=== PATIENT | female | born 1970 | race Caucasian/White ===

== ENCOUNTER 2022-01-30 12:51 | Outpatient (REF) | payer MEDICAID, SELFPAY ==
--- NOTE | 2022-01-30 12:00 | PAPFT_PTH ---
PATIENT: Kimberley Camarena I LOC: NCN #:[id number] AGE/SX: 51/F ROOM: RE01/30/[address]: Leroy Dangelo : 1970 BED: DIS: 01/30/2022 SPEC #: [id number] RECD: 01/30/22 18:12 STATUS: AVELINOSarabjit REAnusha #: [id number] KIARA: 01/30/22 12:[address]: Leroy Dangelo DEPT: [facility] Cytology RECD BY: Layne Jenkins ENTERED: 01/30/22 18:13 SP TYPE: PAPFT OTHR DR: Kristin Wagner Tissues: 1 - CX/ENDOCX FOR PAP SMEARS Procedures: PAP THIN PREP/[facility] Screening Comments: [id number]
[2022-01-30 17:27] LABS: HCT 45.5 % (36.0-46.0); MCH 31.6 pg (27.0-33.0); MCV 96 fL (80-95); MPV 9.6 fL (8.0-11.0); Platelet Count 286 10^3/uL (130-400); RBC 4.75 10^6/uL (3.93-5.22); RDW 12.7 % (11.7-14.6); RDW-SD 45.4 fL; WBC 8.19 10^3/uL (4.4-10.8)
[2022-01-30 18:24] LABS: ALT 20 U/L (14-59); AST 13 U/L (15-37); Albumin 3.7 g/dL (3.4-5.0); Alkaline Phosphatase 83 U/L (46-116); Anion Gap 7.6 mmol/L (3-11); BUN 19 mg/dL (7-18); Bilirubin, Total 0.6 mg/dL (0.2-1.0); CO2 27.4 mmol/L (21.0-32.0); CREATININE 0.8 mg/dL (0.55-1.02); Calcium 8.1 mg/dL (8.5-10.1); Calculated LDL 118 mg/dL (<100); Chloride 107 mmol/L (98-107); Cholesterol 216 mg/dL (<200); Glucose 109 mg/dL (74-106); HDL Cholesterol 74 mg/dL (40-60); Potassium 4.1 mmol/L (3.5-5.1); Sodium 142 mmol/L (136-145); Total Protein 6.5 g/dL (6.4-8.2); Triglyceride 124 mg/dL (<150)
[2022-01-31 09:51] LABS: Hepatitis C Ab w Rflx HCV PCR Negative (Negative)
[2022-01-31 10:06] LABS: HIV-1/2 Ag & Ab Screen Negative (Negative)
== END 2022-01-30 12:52 | disposition home or self-care (01) ==
LOC: NCHCN 12:51
PROVIDERS: PCP Nurse Practitioner Family; Visit Provider Nurse Practitioner Family
DX: Z00.00 Encounter for general adult medical examination without abnormal findings (principal); Z11.4 Encounter for screening for human immunodeficiency virus [HIV]; Z11.59 Encounter for screening for other viral diseases; Z13.228 Encounter for screening for other metabolic disorders; Z13.220 Encounter for screening for lipoid disorders; Z12.4 Encounter for screening for malignant neoplasm of cervix
CPT/HCPCS: 80053; 80061; 85027; 86803; 87389; 88142

== ENCOUNTER → 2022-02-16 01:51 | Outpatient (CLI) | payer MEDICAID, SELFPAY ==
--- NOTE | 2022-02-16 | DI.US_ITS ---
Exam(s) US SOFT TISS ABD WALL/LOW BACK EXAM: US SOFT TISS ABD WALL/LOW BACK CLINICAL HISTORY: MASS OF CHEST WALL R22.2, BOTTOM RT RIBS GROWING IN SIZE. TECHNIQUE: Ultrasound was performed using standard protocol. COMPARISON: No exams were available for comparison FINDINGS: Sonographic assessment utilizing grayscale and color Doppler imaging was performed and targeted to th e area of clinical concern. Area of concern is right upper anterior abdominal wall. In the area of clinical concern there is a well-defined 6.3 x 1.2 x 5.7 centimeter finding which has the ultrasound appearance of a probable lipoma. There is no fluid collection in this region. IMPRESSION: Appearance is that of a probable lipoma with measurements as above. Recommend repeat study for remea suring in 6 months, earlier if clinically indicated. DATA REPOSITORY:
== END ==
PROVIDERS: PCP Nurse Practitioner Family; Visit Provider Nurse Practitioner Family
DX: R22.2 Localized swelling, mass and lump, trunk (principal); D17.39 Benign lipomatous neoplasm of skin and subcutaneous tissue of other sites
CPT/HCPCS: 76705

== ENCOUNTER 2022-02-16 02:23 | Outpatient (CLI) | payer MEDICAID, SELFPAY ==
[2022-02-16 17:41] LABS: Ionized Calcium 1.08 mmol/L (1.14-1.35)
== END 2022-02-16 02:24 | disposition home or self-care (01) ==
LOC: LBO 02:23
PROVIDERS: PCP Nurse Practitioner Family; Visit Provider Nurse Practitioner Family
DX: E83.51 Hypocalcemia (principal)
CPT/HCPCS: 36415; 82330

== ENCOUNTER → 2022-03-15 02:22 | Outpatient (CLI) | payer MEDICAID, SELFPAY ==
--- NOTE | 2022-03-15 09:15 | DI.MAMMO_ITS ---
Exam(s) MAMMO SCREENING EXAM: MAMMO SCREENING CLINICAL HISTORY: SCREENING, [facility], Z00.00; MASS OF CHEST WALL, R22.2 TECHNIQUE: Mammograms were interpreted according to the usual protocol including computer analysis w [employer] CAD system, tomosynthesis and C-view imaging. COMPARISON: 2009 FINDINGS: The breasts are composed of heterogeneously dense fibroglandular densities, Breast Density category C . Right breast: No suspicious masses or suspicious microcalcifications are seen. No skin thickening or abnormal axillary lymph nodes are seen. There has been no significant change from prior exam. Left breast: There are innumerable calcifications seen in the inferior and medial portions of the lef t breast extending from the anterior tissue through the posterior tissue. They have a somewhat pleom orphic appearance. An additional circumscribed heart, partially obscured nodule is seen in the media l breast. These findings were not seen on the previous exam. Spot magnification views and ultrasoun d are recommended for further evaluation. IMPRESSION: Right breast: BI-RADS Category 1, Negative mammogram. Yearly screening mammography is recommended. Left breast: BI-RADS Cat 0 - Assessment Incomplete: Need additional imaging evaluation Breast Density Category C, heterogeneously Dense. The mammogram demonstrates the patient's breast tissue is dense. Dense breast tissue is very common a nd is not abnormal but dense breast tissue can make it harder to find cancer on a mammogram. Also, de nse breast tissue may increase breast cancer risk. This information about the result of the mammogram report was provided to the patient to raise their awareness. Use this report when you speak with the patient about their risks for breast cancer, which includes their family history. At that time, you may recommend additional screening tests (Ultrasound or MRI) as they might be useful based on their r isk. A negative radiographic report should not delay biopsy if a dominant or clinically suspicious mass is present. Up to ten percent of cancers are not identified on mammography. A negative report may reinforce clinical impression. Adenosis and dense breasts may obscure an underlying neoplasm. False positive reports average 6 to 10%.
== END ==
PROVIDERS: PCP Nurse Practitioner Family; Visit Provider Nurse Practitioner Family
DX: Z12.31 Encounter for screening mammogram for malignant neoplasm of breast (principal); R92.8 Other abnormal and inconclusive findings on diagnostic imaging of breast
CPT/HCPCS: 77063; 77067

== ENCOUNTER → 2022-03-17 00:21 | Outpatient (CLI) | payer MEDICAID, SELFPAY ==
--- OUTSIDE RECORDS SUMMARY | 2022-03-17 00:29 | XMS_ITS | Encounter Summary ---
:1970 Author Organization [facility] Address [address] [place] [address] Care Team Providers Name Role Phone Unavailable Primary Care Provider Unavailable Encounter Details Date Type Department Care Team Description 01/06/2008 Results Only [facility] Moncada, JIAN conversion [address] [facility] [address] [place] [phone] (Wo rk) Social History Tobacco Use Types Packs/Day Years Used Date Never Assessed Sex Assigned at Date Recorded Not on file documented as of this encounter Plan of Treatment Not on filedocumented as of this encounter Procedures Procedure Name Priority Date/Time Associated Diagnosis Comme nts CYTOPATHOLOGY Routine 01/06/2008 0:00 EDT Results for this procedure are i n the results section . documented in this encounter Results CYTOPATHOLOGY (01/06/2008 0:00 EDT) Pathology Report: CYTOPATHOLOGY REPORT [facility] Reports generated via electronic interface contain josh ginal data; however they are lacking the format of the original re port. Caution should be taken when reading/interpreting unfo rmatted reports. Name: ? KIMBERLEY CAMARENA ? Accession #: ? [id number] : ? 1970 (Age: 37) ??F ?Collect Date: ? 12/10 Location: ? [facility] ? Receive Date : ? 01/06/2008 Provider: ?PRESTON GRIFFIN [employer] EXECUTIVE Copy to: ? Specimen/Source: ? ThinPrep Pap Test, Cervix/Endocervix, processed on [employer] ThinPrep Imaging System, with manual evaluation Last Menstrual Period: ? 12/13/07 Treatment History: ? LEEP: 1994 Other: ? HPVA - HPV testing requested if ASC-US on the current ThinPrep Pap test. ? SPECIMEN ADEQUACY ? Satisfactory for Evaluation - transformation zone component present GENERAL CATEGORIZATION ? Negative for Intraepithelial Lesion or Malignan cy ? Document reviewed and electronically signed by: ? DELICIA Nassar(ASCP) ? Report Date: ??01/13/2008 09:17 End of Report Specimen Performing Organization Address City/State/ZIP Code Phon e Number [facility] [address] [place] [address] SERVICES [facility] [address] [place] [address] documented in this encounter Visit Diagnoses Not on filedocumented in this encounter
--- OUTSIDE RECORDS SUMMARY | 2022-03-17 00:29 | XMS_ITS | Encounter Summary ---
:1970 Author Organization [facility] [place] [address] Care Team Providers Name Role Phone Kristin Wagner APRN Primary Care Provider [phone] Encounter Details Date Type Department Care Team Description 01/19/2012 Hospital Encounter Same Day Program at Jose Bustamante MD Formerly [facility] [place] [address] [place] [address] [phone] Social History Tobacco Use Types Packs/Day Years Used Date Current Every Day Smoker Cigarettes 1 Smokeless Tobacco: Never Used Alcohol Use Standard Drinks/Week Comments Yes 0 (1 standard drink = 0.6 oz pure alcoho l) social Alcohol Habits Answer Date Recorded How often do you have a drink containing alcohol? Not asked How many drinks containing alcohol do you have on a typical Not asked day when you are drinking? How often do you have six or more drinks on one occasion? No t asked Comment: social 01/04/2012 Sex Assigned at Date Recorded Not on file documented as of this encounter Last Filed Vital Signs Vital Sign Reading Time Taken Comments Blood Pressure 133/77 01/19/2012 6:34 PM EDT Pulse 85 01/19/2012 6:34 PM EDT Temperature 36.9 ??C (98.4 ??F) 01/19/2012 6:34 PM EDT Respiratory Rate 12 01/19/2012 4:45 PM EDT Oxygen Saturation 95% 01/19/2012 6:34 PM EDT Inhaled Oxygen Concentration - - Weight 81.6 kg (180 lb) 01/19/2012 10:21 AM EDT Height 172.7 cm (5' 8) 01/19/2012 10:21 AM EDT Body Mass Index 27.37 01/19/2012 10:21 AM EDT documented in this encounter Discharge Instructions Discharge InstructionsHalley Tatum RN - 01/19/2012 6:46 PM EDT POST ANESTHESIA INSTRUCTIONS Go home, rest, use caution on stairs. Change positions slowly. Do not smoke if you are alone. Diet light to regular as tolerated today. If nausea occurs start with clear liquids and progress slowly. No driving, operating machinery, alcoholic beverages and no important decisions for 24 hours. Monitor IV site for signs and symptoms of infection: increasing redness, swelling, foul drainage, ifoccurs contact M.D. Patients who have had endotrachial tubes (this tube, used by anesthesia department, is passed down your throat after you are asleep, to ensure safe air passage during your operation). A sore throat is normal due to the tube. Cold liquids or soothing lozenges will help ease the discomfort. The generalized muscle aches are due to the medication given to you just before the tube is inserted. As the medication wears off, you may develop muscle soreness, which usually goes away in 12-24 hours. Patient InstructionsCruzito Orozco MD - 01/19/2012 5:08 PM EDT Keep dressing on 48 hours Keep incision dry for 5 days Vicodin for pain documented in this encounter Medications at Time of Discharge Medication Sig Dispensed Refills Start Date End Date misoprostol (CYTOTEC) 200 Take 200 mcg by 0 mcg tablet mouth 2 times daily. diclofenac (VOLTAREN) 75 Take 75 mg by mouth 0 mg EC tablet 2 times daily. gabapentin (NEURONTIN) 800 Take 800 mg by 0 mg tablet mouth 3 times daily. cyclobenzaprine (FLEXERIL) Take 10 mg by mouth 0 10 mg tablet daily. hydroCODone-acetaminophen Take 1 tablet by 0 03/20/2012 (NORCO) 10-325 mg per mouth every 6 hours tablet as needed. Tapering documented as of this encounter Progress Notes Jose Bustamante MD - 01/19/2012 11:57 AM EDT Patient is describing pain across dorsal, not just lateral surface of the left foot. Give the presence of a small disc bulge at L4-5, in addition to the larger one at L5-S1, I have recommended exploration of left side L4-5 in addition to L5-S1 (with possible 2 level discectomy). Patient understands rationale and agrees to the modified plan. Consent reflects modification to the plan. Eugenio Bustamante MD documented in this encounter H&P Notes Cruzito Orozco MD - 01/19/2012 11:52 AM EDT See office note No changes Heart and Lungs WNL documented in this encounter Nursing Notes Deandra Trevino RN - 01/19/2012 2:52 PM EDT Kimberley reports pain down her left leg requiring increased pain med use causing constipation. She has equally strong motor function in lower extremities and denies decreased sensation of left leg/foot attime of preop. She does report left ankle seems to go out once in awhile documented in this encounter Miscellaneous Notes Miscellaneous - Provider, Scanning - 01/22/2012 7:08 AM EDT Miscellaneous - Provider, Scanning - 01/21/2012 11:21 PM EDT OR Attestation - Jose Bustamante MD - 01/19/2012 4:44 PM EDT Attestation: Case Date: 01/19/2012 I was present and I participated during the entire procedure (does not need to include opening and closing). Jose BUSTAMANTE MD 01/19/2012 Op Note - Jose Bustamante MD - 01/19/2012 4:40 PM EDT [facility] Operative Note Patient Name: Kimberley Camarena : [id number] MR#: [id number] Case Date: 01/19/2012 Surgeon: Surgeon(s) and Role: * Jose BUSTAMANTE MD - Primary * CRUZITO OROZCO MD - Resident-Double Bottom Driver Preoperative diagnosis: LUMBAR RADICULOPATHY Postoperative diagnosis: LUMBAR RADICULOPATHY Procedure(s): LAMINOTOMY, DECOMPRESSION, FORAMINOTOMY, LUMBAR ADD'L INTERSPACES CX OR LUMBAR Procedure: Left L4-L5 diskectomy and left L5-S1 diskectomy. Indications: Ms. Camarena presents with a left lower lumbar radiculopathy with features suggesting both L5 and S1 involvement. She was found to have disk herniations at L4-L5 and L5-S1 and is brought to the Operating Room for exploration and diskectomy at these levels. Operative Findings: A relatively large free fragment was found at L5-S1 compressing the left S1 root. At L4-L5, there was a disk protrusion compressing the adjacent L5 root. Diskectomy was performed at both levels without incident. Description of the Operative Procedure: The patient was brought to the Operating Room and general endotracheal anesthesia induced. The patient was placed prone on a Bryant frame. The lower back was prepped and draped in the usual sterile fashion. Localization was performed with fluoroscopy. Midline incision was made over the L5 level approximately 4 cm in length. Subcutaneous tissues were divided and the dorsal fascia incised with monopolar electrocautery. Subperiosteal dissection was used to expose the lamina of L4 and L5. We started with the L5-S1 level. The inferior portion of the left L5 lina-lamina was carefully drilled with a Midas AM8 bur. Kerrison rongeurs were used to complete the laminotomy. The ligamentum flavum was elevated and undercut with Kerrison rongeurs. The shoulder of the exiting root was visualized and retracted medially. An operating microscope was used from this point forward in conjunction with microscopic technique. A cruciate incision was made in the L5-S1 disk. Inferior to the disk itself, a relatively large fragment was encountered; and this was removed in three separate pieces. The disk space itself was then entered and diskectomy performed with down-pushing curettes and pituitary rongeurs. The disk space itself was very collapsed, so not much disk material was actually removed from the disk space itself. At the conclusion of the diskectomy, the nerve root was palpated both ventrally and dorsally and found to be free of compression. We then moved our retractor slightly rostrally and performed an identical laminotomy and diskectomy at L4-L5. At L4-L5, there was no free fragment, only a disk protrusion. Again, once the diskectomy was completed, the L5 nerve root was found to be free of compression. The wound was then copiously irrigated and less than 1 mL of Depo-Medrol divided between the L4 and L5 laminotomies. The dorsal fascia was reapproximated with interrupted Vicryl suture. The subcutaneous tissues were reapproximated with interrupted Vicryl suture. The skin was closed with a running 4-0 subcuticular Monocryl. Sterile dressings were applied and the patient brought to the Recovery Area in stable condition. Brief Op Note - Cruzito Orozco MD - 01/19/2012 4:16 PM EDT Brief Operative Note Patient Name: Kimberley Camarena : [id number] MR#: [id number] Case Date: 01/19/2012 Surgeon: Surgeon(s) and Role: * Jose BUSTAMANTE MD - Primary * CRUZITO OROZCO MD - Resident-Double Bottom Driver Preoperative diagnosis: LUMBAR RADICULOPATHY Postoperative diagnosis: LUMBAR RADICULOPATHY Procedure(s): LAMINOTOMY, DECOMPRESSION, FORAMINOTOMY, LUMBAR ADD'L INTERSPACES CX OR LUMBAR Anesthesia: General Findings: L4-5 and L5-S1 disc herniation Complications: None Fluids: 1100 cc Estimated Blood Loss: 40cc Drains: None Disposition: awakened from anesthesia, extubated and taken to the recovery room in a stable condition, having suffered no apparent untoward event. Condition: doing well without problems (Please see the Surgical Encounter Summary for any Implant and Specimen details pertinent to this patient.) Miscellaneous - Provider, Scanning - 01/19/2012 1:15 PM EDT documented in this encounter Plan of Treatment Pending Results Name Type Priority Associated Diagnoses Date/Ti me XR Fluoro OR c-arm Imaging Routine 2 4:58 PM EDT storage only Scheduled Orders Name Type Priority Associated Diagnoses Order S chedule XR Fluoro OR c-arm Imaging Routine Once PRN (for Radiant storage only use) for 1 Occu rrences starting 2011 until 01/19/2012 documented as of this encounter Procedures Procedure Name Priority Date/Time Associated Diagnosis Comme nts SURGICAL PATHOLOGY Routine 01/19/2012 3:38 PM Res ults for this REPORT EDT procedure are i n the results section. SPECIMEN TO Routine 01/19/2012 3:29 PM Results f or this PATHOLOGY EDT procedure are i n the results section. SPECIMEN TO Routine 01/19/2012 2:10 PM Results f or this PATHOLOGY EDT procedure are i n the results section. ADD'L INTERSPACES CX 01/19/2012 12:23 LUMBAR RADICULOP ATHY OR LUMBAR (VU PM EDT 3.15) LAMINOTOMY, 01/19/2012 12:23 LUMBAR RADICULOPATHY DECOMPRESSION, PM EDT FORAMINOTOMY, LUMBAR (WRVU 13.18) DIFFERENTIAL, Routine 01/19/2012 10:09 Results fo r this AUTOMATED AM EDT procedure are i n the results section. ABO/RH TYPING STAT 01/19/2012 10:09 Results fo r this AM EDT procedure are i n the results section. APTT Routine 01/19/2012 10:09 Results for this AM EDT procedure are i n the results section. PROTHROMBIN TIME Routine 01/19/2012 10:09 Results for this AM EDT procedure are i n the results section. CBC (WITH DIFF) Routine 01/19/2012 10:09 Results for this AM EDT procedure are i n the results section. ANTIBODY SCREEN STAT 01/19/2012 10:09 Results for this AM EDT procedure are i n the results section. BASIC METABOLIC Routine 01/19/2012 10:09 Results for this PANEL (NON-FASTING) AM EDT procedur e are in the results section. TYPE AND SCREEN STAT 01/19/2012 10:01 ([facility] [place]/[facility]) AM EDT documented in this encounter Results SURGICAL PATHOLOGY REPORT (01/19/2012 3:38 PM EDT) Component Value Ref Test Analysis Performed At [facility] Range Method Time Signature Surgical CERNER Pathology ? [facility] Report ? Provider: ?? Jose BUSTAMANTE ? Pt. Name: ?? DIAZ Doran, KIMBERLEY Greer ? Acc #: ?[id number] ?Pt. MRN: ?[id number] ? Col Date: ?? 2 ? /Sex: ?1970,(41 years),Female ? Rec Date: ?? 01/19/2012 ? LOC: ?[facility] ? SURGICAL PATHOLOGY ? ---Pathologic Diagnosis--- ? A - Intervertebral disc, L5-S1. ?Gross surgical pathology examination. ? B - Intervertebral disc, L4-5. ?Gross surgical pathology examination. ? CR-0 ? 01/22/12 ? AJE ? 01/22/12 Verified by: ? Byron DO, Radha You. ? Pathologist ? (Electronic Si gnature) ? The attending pathologist whose signature appears o n this report has ? reviewed all diagnostic slides and has edited the dileep ss and/or ? microscopic portion of the report in rendering the fi nal pathologic ? diagnosis. ? ---Microscopic Description--- ? Slides reviewed, microscopic description not recorded . ? ---Gross Description--- ? A - Labeled/Fixative: L5-S1 disc, fresh. ? Quantity/Size: ?Multiple, 3.0 x 2.0 x 2.0 c m. ? Tissue Description: ?? Dense, jung-white, friable fra gments. ? Sections/Processing: ??No sections are submitted. ? B - Labeled/Fixative: L4-5 disc, fresh. ? Quantity/Size: ?Multiple, 2.0 x 2.0 x 2.0 c m. ? Tissue Description: ?? Dense, jung-white, friable fra gments. ? Sections/Processing: ??No sections are submitted. ??a je/SNS ? ---Clinical Information--- ? Specimen Submitted: ? A - L5-S1 disc ? B - L4-5 disc ? Clinical History/Diagnosis: ? Lumbar radiculopathy Specimen (Source) Anatomical Collection Method Collection Time Re ceived Time Location / / Volume Laterality 01/19/2012 3:38 PM EDT S Eugenio Bustamante MD PATHOLOGY/CYTOLOGY ORDERABLE S Performing Organization Address [facility]/ZIP Code Phon e Number [address] CERNER MILLENNIUM Specimen to Pathology (surgical or derm) (01/19/2012 3:29 PM EDT) Specimen Anatomical Collection Method Collection Time Receive d Time (Source) Location / / Volume Laterality AP Specimen 01/19/2012 3:29 PM 2 3:29 EDT PM EDT Narrative CERNER MILLENNIUM - 01/19/2012 3:29 PM E DT Specimen requisition ordered. ??Separate Pathology report to follow S Eugenio Bustamante MD PATHOLOGY/CYTOLOGY ORDERABLE S Performing Organization Address [facility] [place] [address] CERNER MILLENNIUM Specimen to Pathology (surgical or derm) (01/19/2012 2:10 PM EDT) Specimen Anatomical Collection Method Collection Time Receive d Time (Source) Location / / Volume Laterality AP Specimen 01/19/2012 2:10 PM 2 2:10 EDT PM EDT Narrative CERNER MILLENNIUM - 01/19/2012 2:10 PM E DT Specimen requisition ordered. ??Separate Pathology report to follow S Eugenio Bustamanet MD PATHOLOGY/CYTOLOGY ORDERABLE S Performing Organization Address City/State/ZIP [place] [address] CERNER MILLENNIUM DIFFERENTIAL, AUTOMATED (01/19/2012 10:09 AM EDT) P athologist Signature Neutrophils % 56.6 34.0 - CERNER 71.0 % MILLENNIUM Neutr Abs (ANC) 5.33 1.50 - CERNER 6.30 MILLENNIUM x10(3)/mcL Lymphocytes % 31.9 19.0 - CERNER 53.0 % MILLENNIUM Lymphocytes Abs 3.0 1.0 - 3.6 CERNER x10(3)/mcL MILLENNIUM Monocytes % 7.0 4.0 - 13.0 CERNER % MILLENNIUM Monocyte Abs 0.7 0.2 - 1.0 CERNER x10(3)/mcL MILLENNIUM Eosinophils % 4.1 0.0 - 7.0 CERNER % MILLENNIUM Eosinophils Abs 0.4 0.0 - 0.5 CERNER x10(3)/mcL MILLENNIUM Basophils % 0.3 0.0 - 2.0 CERNER % MILLENNIUM Basophils Abs 0.0 0.0 - 0.2 CERNER x10(3)/mcL MILLENNIUM Immature Gran % 0.10 0.00 - CERNER 0.66 % MILLENNIUM Comment: Immature granulocytes(IG's)percentage an d absolute count will include metamyelocytes, myelocytes, and promyelo cytes. Blood smears from CBCs yielding IG's will be scanned manually for concor dance. If this scan disagrees with the automated IG or if promyelocytes are not ed, a manual differential will be performed. Tammie Gran Abs 0.01 0.00 - 0.05 x10(3)/mcL CER NER MILLENNIUM Specimen Anatomical Collection Method Collection Time Receive d Time (Source) Location / / Volume Laterality Blood specimen 01/19/2012 10:09 2 (specimen) AM EDT 10:13 AM EDT S Eugenio Bustamante MD HEMATOLOGY ORDERABLES Performing Organization Address City/[facility]/ZIP [place] [address] [facility] ANTIBODY SCREEN (01/19/2012 10:09 AM EDT) Analysis Performed At Patho logist Time Signature Ab Screen [facility] Ex[facility] at [id number] [facility] [id number] on: [facility] Specimen Anatomical Collection Method Collection Time Receive d Time (Source) Location / / Volume Laterality Blood specimen 01/19/2012 10:09 2 (specimen) AM EDT 10:13 AM EDT Resulting Agency Comment Spec In Lab S Eugenio Bustamante MD BLOOD BANK ORDERABLES Performing Organization Address City/[facility]/ZIP [place] [address] [facility] ABO/RH TYPING (01/19/2012 10:09 AM EDT) P athologist Signature ABORh Type A Pos [facility] Specimen Anatomical Collection Method Collection Time Receive d Time (Source) Location / / Volume Laterality Blood specimen 01/19/2012 10:09 2 (specimen) AM EDT 10:13 AM EDT Resulting Agency Comment Spec In Lab S Eugenio Bustamante MD BLOOD BANK ORDERABLES Performing Organization Address City/[facility]/ZIP [place] [address] [facility] APTT (01/19/2012 10:09 AM EDT) P athologist Signature PTT 30 25 - 35 sec [facility] Comment: Recommended therapeutic PTT range for fu ll dose unfractionated heparin is 80-114 seconds. Specimen Anatomical Collection Method Collection Time Receive d Time (Source) Location / / Volume Laterality Blood specimen 01/19/2012 10:09 2 (specimen) AM EDT 10:13 AM EDT Resulting Agency Comment Spec In Lab S Eugenio Bustamante MD HEMATOLOGY ORDERABLES Performing Organization Address City/[facility]/ZIP [place] [address] CERNER MILLENNIUM Prothrombin Time (01/19/2012 10:09 AM EDT) P athologist Signature PT 12.3 11.9 - 14.7 CERNER sec MILLENNIUM Comment: [facility] Transfusion Committee Guidelines: I NR less than 2.0, PTT less than OR equal to 43.5 seconds, or Fibrinogen gre ater than or equal to 100 mg/dl indicate adequate procoagulant activity for hemostasis in patients without underlying bleeding disorders. INR 0.9 0.9 - 1.1 CERNER MILLENNIUM Specimen Anatomical Collection Method Collection Time Receive d Time (Source) Location / / Volume Laterality Blood specimen 01/19/2012 10:09 2 (specimen) AM EDT 10:13 AM EDT Resulting Agency Comment Spec In Lab S Eugenio Bustamante MD HEMATOLOGY ORDERABLES Performing Organization Address City/[facility]/ZIP [place] [address] CERNER MILLENNIUM Basic Metabolic Panel (non-fasting) (01/19/2012 10:09 AM EDT) P athologist Signature Glucose Lvl 103 60 - 199 CERNER mg/dL MILLENNIUM Comment: Diabetes: >=200 mg/dL plus symp toms BUN 10 8 - 18 mg/dL CERNER MILLENNIUM Creatinine 0.73 0.70 - 1.20 mg/dL CERNER MILL ENNIUM Sodium 138 135 - 145 mmol/L CERNER CATHIE NIUM Potassium 4.8 3.5 - 5.0 mmol/L CERNER CATHIE NIUM Comment: Please note: ??Patients with WBC >100,00 0 may have falsely elevated Potassium levels. ??For accurate Potassium quantif ication in these patients send serum separator tube (gold top) for subsequent determinations. ??Contact the Clinical Chemistry Laboratory if there are any qu estions. Chloride 103 98 - 107 mmol/L CERNER MILLENN IUM CO2 27 22 - 31 mmol/L CERNER MILLENNI UM Anion Gap 8 5 - 15 mmol/L BRENNEN Ureña Calcium 9.6 8.5 - 10.5 mg/dL BRENNEN BRAND NIUM Estimated GFR >60 >=60 BRENNEN Ureña Comment: The National Kidney Disease Education Pr ogram (NKDEP) has recommended all laboratories report estimated GFR (eGFR) along with plasma creatinine measurements to assist you with recognit ion of early kidney disease. Caveats: ??Plasma creatinine should be a t steady-state (unchanged within the past week). For patient s multiply eGFR by 1.2. The MDRD equation was developed using patients be tween the ages of 18 and 70 years. ?? The MDRD equation has not been validated for patients < 18 years of age and should not be used to assess renal function in the pediatric population. ??The MDRD eGFR equation will also overestimate the true GFR of patients above the age of 70. ??This overestimation is variable bu t increases with age. At present, NKDEP does NOT recommend usi ng the MDRD equation for drug dosing purposes and pharmacists should continue to use their current dosing methods. In addition, numerical eGFR values great er than 60 ml/min/1.73 square meters should be treated as > 60, and not an ex act number due to greater inaccuracies at these higher values. Per NKDEP, they classify normal renal function as any GFR >60ml/min/1.73 square meters; chronic kidney disease wh en GFR <60, and renal failure when GFR <15. ??This calculation may not be valid for patients with atypical muscle mass (very lean or obese), acute renal failur e, and in patients with diabetic kidney disease. References: http://nkdep.nih.gov/resources/NKDEP_Sug gestn4Labs_0606_508.pdf http://www.kidney.org/professionals/kls/ pdf/faq_gfr.pdf Ash K, Jose Juan NA, Jenna AK, Theo TS, Jazzmine AD, Mathew SUSIE. Relative performance of the MDRD and CKD-EPI equa tions for estimating glomerular filtration rate among patients with vari ed clinical presentations. Clin J Am Soc Nephrol;6:1963-72. Specimen Anatomical Collection Method Collection Time Receive d Time (Source) Location / / Volume Laterality Blood specimen 01/19/2012 10:09 2 (specimen) AM EDT 10:13 AM EDT Resulting Agency Comment Spec In Lab S Eugenio Bustamante MD CHEMISTRY ORDERABLES Performing Organization Address City/[facility]/ZIP [place] [address] CERNER MILLENNIUM (ABNORMAL) CBC (with Diff) (01/19/2012 10:09 AM EDT) P athologist Signature WBC 9.4 4.0 - 10.0 CERNER x10(3)/mcL MILLENNIUM RBC 4.92 3.93 - CERNER 5.22 MILLENNIUM x10(6)/mcL Hemoglobin 15.9 (H) 11.2 - CERNER 15.7 gm/dL MILLENNIUM Hematocrit 45.7 (H) 34.0 - CERNER 45.0 % MILLENNIUM MCV 92.9 79.0 - CERNER 94.0 fL MILLENNIUM MCH 32.3 (H) 26.6 - CERNER 32.2 pg MILLENNIUM MCHC 34.8 32.0 - CERNER 36.5 gm/dL MILLENNIUM Platelets 256 145 - 370 CERNER x10(3)/mcL MILLENNIUM RDWSD 45.3 35.0 - CERNER 46.0 fL MILLENNIUM RDWCV 13.3 10.9 - CERNER 14.4 % MILLENNIUM MPV 9.5 9.0 - 12.0 CERNER fL MILLENNIUM Specimen Anatomical Collection Method Collection Time Receive d Time (Source) Location / / Volume Laterality Blood specimen 01/19/2012 10:09 2 (specimen) AM EDT 10:13 AM EDT Resulting Agency Comment Spec In Lab S Eugenio Bustamante MD HEMATOLOGY ORDERABLES Performing Organization Address City/[facility]/ZIP [place] [address] CERNER MILLENNIUM documented in this encounter Visit Diagnoses Not on filedocumented in this encounter Administered Medications Inactive Administered Medications - up to 3 most recent administrations Medication Order MAR Action Action Date Dose Rate Site lactated ringers infusion New Bag 01/19/2012 10:45 AM 1,000 mLs 1 00 mL/hr 1,000 mL EDT 1,000 mL, at 100 mL/hr, Intravenous, CONTINUOUS, Starting on Sun01/19/12 at 1045, Until Sun01/19/12 at 2238, Day of Surgery (Day of Procedure) documented in this encounter Active and Recently Administered Medications Times are shown in EDT. Scheduled Medication Order 01/17/2012 01/18/2012 01/19/2012 ceFAZolin (ANCEF) 2g in dextrose 5% 100mL (COMPLETED) 1045 (Due)1249 (Given - Provider: Lorene Loera MD) 2 g, Intravenous, ONCE, 1 dose, 01/18 at 1045, for 30 Minutes, To be administered upon arrival to the OR within one hour prior to incision., Day of Surgery (Day of Procedure) Continuous Medication Order 01/17/2012 01/18/2012 01/19/2012 lactated ringers infusion 1,000 mL (CANCELED) 1045 (New Bag - Provider: Halley Tatum RN) 1,000 mL, at 100 mL/hr, Intravenous, CON TINUOUS, Starting Sun01/19/12 at 1045, Until Sun01/19/12 at 2238, Day of Surgery (Day of Procedure) PRN Medication Order 01/17/2012 01/18/2012 01/19/2012 gelatin adsorbable (GELFOAM) sponge (CANCELED) 1353 (Given - Provider: Jose Bustamante MD) ONCE PRN, Starting Sun01/19/12 at 1353, For 1 dose, Intra-Operative (Intra-Procedure) lidocaine-epiNEPHrine 1 %-1:200,000 injection (CANCELED) 1300 (Given - Provider: Jose Bustamante MD) ONCE PRN, Starting Sun01/19/12 at 1354, Until Sun01/19/12 at 2238, Intra- Operative (Intra-Procedure), Routine methylPREDNISolone acetate (depo-MEDROL) injection (CANCELED) 1600 (Given - Provider: Cruzito Mitchell MD) ONCE PRN, Starting Sun01/19/12 at 1600, Until Sun01/19/12 at 2238, Intra- Operative (Intra-Procedure), Routine thrombin (Bovine) (THROMBINAR) kit (CANCELED) 1313 (Given - Provider: Jose Bustamante MD - Comment: soak [email or web address]) ONCE PRN, Starting Sun01/19/12 at 1313, For 1 dose, Intra-Operative (Intra-Procedure) documented in this encounter Care Teams Bobbin Sorter Relationship Specialty Start Date End Date Kristin Wagner, CONTRACTOR [employer]HING PCP - General 08/02/10 documented as of this encounter
--- OUTSIDE RECORDS SUMMARY | 2022-03-17 00:29 | XMS_ITS | Encounter Summary ---
:1970 Author Organization [facility] [place] [address] Care Team Providers Name Role Phone Kristin Wagner APRN Primary Care Provider [phone] Encounter Details Date Type Department Care Team Description 01/04/2012 External Results [place] [facility] [place]in Wagner, [address] [place] [address] [place] [address] [address] [phone] [place], [place] [address] (Wo rk) Social History Tobacco Use Types [...] Name Priority Date/Time Associated Diagnosis Comme nts MRI/MRA SCAN Routine 07/27/2011 documented in this encounter Results Scan Doc: MRI/MRA (07/27/2011) Anatomical Region Laterality Modality Other Narrative This result has an attachment that is no t available. Kristin Wagner APRN MEDIA MGR SCAN EXT ORDR/RSLT documented in this encounter Visit Diagnoses Not on filedocumented in this encounter Care Teams Faith Doctor Relationship Specialty Start Date End Date Kristin Wagner APRN PCP - General 08/02/10 documented as of this encounter
--- OUTSIDE RECORDS SUMMARY | 2022-03-17 00:29 | XMS_ITS | Encounter Summary ---
:1970 Author Organization [facility] Address [address] [place] [address] Care Team Providers Name Role Phone Constance Parker MD Primary Care Provider Encounter Details Date Type Department Care Team Description 02/16/2022 Lab Requisition [facility] Outr Resulting Lab, Pathology & Laboratory Provider [facility] [address] [place] [address] Social History Tobacco Use Types Packs/Day Years Used Date Never Assessed Sex Assigned at Date Recorded Not on file documented as of this encounter Plan of Treatment Not on filedocumented as of this encounter Procedures Procedure Name Priority Date/Time Associated Diagnosis Comme nts CALCIUM, IONIZED Routine 02/16/2022 8:12 EDT Resu lts for this procedure are i n the results section. documented in this encounter Results (ABNORMAL) CALCIUM, IONIZED (02/16/2022 8:12 EDT) Calcium, Ionized 1.08 (L)Comment: 1.14 - 1.35 [facility] Testing performed mmol/L LABORATORY on heparinized SERVICES plasma. Results may be biased 5% lower than that of whole blood. Specimen Blood - Venous blood (substance) Performing Organization Address City/State/ZIP Code Phon e Number [facility] [address] [place] [address] SERVICES documented in this encounter Visit Diagnoses Not on filedocumented in this encounter Care Teams Design Quality Engineer Relationship Specialty Start Date End Date Constance Parker MD PCP - General 07/18/[address] [place] [phone] documented as of this encounter
--- OUTSIDE RECORDS SUMMARY | 2022-03-17 00:29 | XMS_ITS | Encounter Summary ---
:1970 Author Organization [facility] [place] [address] Care Team Providers Name Role Phone Kristin Wagner APRN Primary Care Provider [phone] Encounter Details Date Type Department Care Team Description 10/16/2012 Abstract Neurosurgery Jose Bustamante MD [facility] [place] [address] NEUROSURGERY DEPT. [phone] [place], [place] [address] ( rk) Social History Tobacco Use Types Packs/Day [...] Not on filedocumented as of this encounter Visit Diagnoses Not on filedocumented in this encounter Care Teams Home Therapy Teacher Relationship Specialty Start Date End Date Kristin Wagner APRN PCP - General 08/02/10 documented as of this encounter
--- OUTSIDE RECORDS SUMMARY | 2022-03-17 00:29 | XMS_ITS | Encounter Summary ---
:1970 Author Organization [facility] Address [address] [place] [address] Care Team Providers Name Role Phone Constance Parker MD Primary Care Provider Encounter Details Date Type Department Care Team Description 01/30/2022 Lab Requisition [facility] Outr Resulting Lab, Pathology & Laboratory Provider [facility] [address] [place] [address] Social History Tobacco Use Types Packs/Day Years Used Date Never Assessed Sex Assigned at Date Recorded Not on file documented as of this encounter Plan of Treatment Not on filedocumented as of this encounter Procedures Procedure Name Priority Date/Time Associated Diagnosis Comme nts HEPATITIS C AB W Routine 01/30/2022 12:15 Results for this REFLEX TO HCV RNA EDT procedure are in BY PCR the results section. documented in this encounter Results HEPATITIS C AB W REFLEX TO HCV RNA BY PCR (01/30/2022 12:15 EDT) Pathologist Sig nature Hep C Antibody Negative Negative [facility] Specimen Blood - Venous blood (substance) Performing Organization Address City/State/ZIP Code Phon e Number [facility] [address] [place] [address] SERVICES documented in this encounter Visit Diagnoses Not on filedocumented in this encounter Care Teams Finance Intern Relationship Specialty Start Date End Date Constance Parker MD PCP - General 07/18/[address] [place] [phone] documented as of this encounter
--- OUTSIDE RECORDS SUMMARY | 2022-03-17 00:29 | XMS_ITS | Encounter Summary ---
:1970 Author Organization [facility] [place] [address] Care Team Providers Name Role Phone Kristin Wagner APRN Primary Care Provider [phone] Reason for Visit Reason Comments Radiculopathy Lumbar Encounter Details Date Type Department Care Team Description 01/04/2012 Office Visit Neurosurgery at [facility] [place] Bustamante, Lumbar radiculopathy [facility] (Primary Dx) [place] [address] [place] [address] NEUR[address]UR[address]ERY DEPT. [place], [place] [address] Social History Tobacco Use Types Packs/Day Years [...] Sign Reading Time Taken Comments Blood Pressure 117/71 01/04/2012 2:15 PM EDT Pulse 87 01/04/2012 2:15 PM EDT Temperature - - Respiratory Rate - - Oxygen Saturation - - Inhaled Oxygen Concentration - - Weight 81.6 kg (180 lb) 01/04/2012 2:15 PM EDT Height 172.7 cm (5' 8) 01/04/2012 2:15 PM EDT Body Mass Index 27.37 01/04/2012 2:15 PM EDT documented in this encounter Progress Notes Jose Bustamante MD - 01/04/2012 6:14 PM EDT Ms. Camarena is a 41-year-old woman seen in conjunction with Dr. Hernandez for complaint of lumbar radiculopathy. Please see Dr. Hernandez' note for details. I corroborated a portion of this physical exam and his impression and plan represent our shared conclusions. Ms. Camarena is a 41-year-old otherwise healthy woman who presents with chief complaint of left leg pain. She has had this for many months. It radiates down the posterior thigh, posterior calf and into the lateral surface of the foot. 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 She has not had any associated bowel or bladder problems and no associated weakness. Physical Examination: Physical exam reveals preserved ability to toe and heel walk. EHL is 5/5 bilaterally. Straight leg raise on the left is negative. There is subjective hypesthesia in the anterior sole of the left foot. MRI reveals a moderately large left paracentral disk herniation at L5-S1. There is a much smaller disk bulge on the left at L4-5. Impression: Ms. Camarena is a 41-year-old woman who presents with left leg pain consistent with an S1 radiculopathy referable to a large L5-S1 disc herniation. I do not think the more rostral lesion is symptomatic at this time. At this point, Ms. Camarena has undergone treatment with epidural steroid injections, physical therapy and high dose gabapentin, none of which have given her any relief. Her symptoms have been present for many months and are making it difficult for her to work. I think consideration of surgery is reasonable in this instance. I have described for her the details of laminotomy and diskectomy at L5-S1. Risks including nerve injury, epidural fibrosis, increased pain, CSF leak, instability and general risks of anesthesia were discussed in some detail. She will take some time to think about it and contact us if she wishes to proceed with surgery. 25 minutes of this 35 minute visit were spent counseling the patient and coordinating care. Leonid Hernandez MD - 01/04/2012 3:03 PM EDT We are seeing Ms. Camarena today in consultation for the evaluation of a herniated lumbar disk. She is a 41-year-old female patient presenting with a history of buttock, posterior thigh, calf, and foot pain on the left side since May. She has undergone an MRI of her lumbar spine demonstrating an L5-S1 herniated lumbar disk on the left. She underwent three epidural steroid injections with no relief of her pain. She has also been on treatment with Neurontin, just currently on 2400 mg daily. She has undergone two injections of Toradol that have also not provided her with any relief. She reports no weakness, and she reports numbness on her posterior thigh, calf, dorsum and plantar surface of the foot. Past Medical History: Noncontributory. On exam she is awake, alert, and oriented times three. Pupils equal, round, and reactive to light. Extraocular movements intact. Her face is symmetric. Her tongue is at midline. Her trigeminal sensation is intact. Her strength is 5/5 throughout all four extremities. Her sensation is intact throughout except from the plantar surface of the foot where she has difficulty of the left foot in which she has difficulty with sharp/dull discrimination. Her reflexes are 2+ and symmetric bilaterally. Her toes are downgoing to plantar stimulation. She can walk on her heels, and she can walk on her toes. She has no dysmetria or dysdiadochokinesia. Her MRI is being reviewed that demonstrates a prominent L5-S1 herniated lumbar disk with significant foraminal stenosis. She also has a moderate L3, L4, L5 herniated lumbar disk on the left side without significant foraminal or canal stenosis. Assessment and Plan: Ms. Camarena is a 41-year-old female patient presented to us for the evaluation of a herniated lumbar disk associated with leg pain since May. She has undergone all nonoperative conservative treatments including Neurontin and epidural steroid injections. We explained to her the surgical options and the alternatives. She will consider the options, and if she would want surgery arrangements for that will be made. She was happy with the plan. Dr. Bustamante was present for the evaluation of the patient and the formulation of the plan. documented in this encounter Plan of Treatment Not on filedocumented as of this encounter Visit Diagnoses Diagnosis Lumbar radiculopathy - Primary Thoracic or lumbosacral neuritis or radi culitis, unspecified documented in this encounter Care Teams Kitchen Steward Relationship Specialty Start Date End Date Kristin Wagner APRN PCP - General 08/02/10 documented as of this encounter
--- OUTSIDE RECORDS SUMMARY | 2022-03-17 00:29 | XMS_ITS | Encounter Summary ---
:1970 Author Organization [place] [address] Care Team Providers Name Role Phone Kristin Wagner APRN Primary Care Provider [phone] Encounter Details Date Type Department Care Team Description 03/11/2012 Abstract Neurosurgery Jose Bustamante MD [facility] [place] [address] NEUROSURGERY DEPT. [phone] [place], [place] [address] ( rk) Social History Tobacco [...] on filedocumented in this encounter Care Teams Cad Developer Relationship Specialty Start Date End Date Kristin Wagner APRN PCP - General 08/02/10 documented as of this encounter
--- OUTSIDE RECORDS SUMMARY | 2022-03-17 00:29 | XMS_ITS | Encounter Summary ---
:1970 Author Organization [facility] [place] [address] Care Team Providers Name Role Phone Kristin Wagner APRN Primary Care Provider [phone] Encounter Details Date Type Department Care Team Description 01/01/2012 Abstract Neurosurgery Jose Bustamante MD [facility] [place] [address] NEUROSURGERY DEPT. [phone] [place], [place] [address] ( rk) Social History Tobacco Use Types Packs/Day Years Used Date Never Assessed Sex Assigned at Date Recorded Not on file documented as of this encounter Plan of Treatment Not on filedocumented as of this encounter Visit Diagnoses Not on filedocumented in this encounter Care Teams Turkey Farmer Relationship Specialty Start Date End Date Kristin Wagner APRN PCP - General 08/02/10 documented as of this encounter
--- OUTSIDE RECORDS SUMMARY | 2022-03-17 00:29 | XMS_ITS | Clinical Summary ---
:1970 Author Organization [facility] [place] [address] Care Team Providers Name Role Phone Kristin Wagner APRN Primary Care Provider Allergies Active Allergy Reactions Severity Noted Date Comments Miscellaneous Reagents High 02/15/2012 Scall ops and fish ... Nausea.. Diarrh ea Nitrofurantoin Monohyd/M-Cryst Medium Hives Medications Medication Sig Dispensed Refills Start Date End Date Status misoprostol (CYTOTEC) Take 200 mcg by 0 Active 200 mcg tablet mouth 2 times daily. diclofenac (VOLTAREN) 75 Take 75 mg by 0 Active mg EC tablet mouth 2 times daily. gabapentin (NEURONTIN) Take 800 mg by 0 Active 800 mg tablet mouth 3 times daily. cyclobenzaprine Take 10 mg by 0 Active (FLEXERIL) 10 mg tablet mouth daily. venlafaxine (EFFEXOR) 75 Take 150 mg by 0 Active mg tablet mouth 2 times daily. OXYcodone (ROXICODONE) 5 Take 1-2 tablets 60 tablet 0 03/20/20 12 Active mg immediate release by mouth every 4 tablet hours as needed for Pain. Social History Tobacco Use Types Packs/Day Years [...] Assigned at Date Recorded Not on file Last Filed Vital Signs Vital Sign Reading Time Taken Comments Blood Pressure 104/68 05/09/2012 11:01 AM EDT Pulse 98 05/09/2012 11:01 AM EDT Temperature 36.4 ??C (97.5 ??F) 03/20/2012 10:31 AM EDT Respiratory Rate 16 03/20/2012 10:54 AM EDT Oxygen Saturation 95% 03/20/2012 10:54 AM EDT Inhaled Oxygen Concentration - - Weight 83.9 kg (185 lb) 05/09/2012 11:01 AM EDT Height 172.7 cm (5' 8) 05/09/2012 11:01 AM EDT Body Mass Index 28.13 05/09/2012 11:01 AM EDT Plan of Treatment Health Maintenance Due Date Last Done Comments Covid-19 Vaccine (#1) 12/03/1976 HIV screen 12/03/1989 Hepatitis C Screening 12/03/1989 Tdap adult 12/03/1990 Tetanus vaccine 12/03/1990 HPV test 12/03/2001 PAP Smear 12/03/2001 Breast Cancer Share Decision Needed 2011 Colonoscopy 12/03/2016 Breast Cancer screening 12/03/2021 Zoster vaccine (1 of 2) 12/03/2021 Influenza (Flu) vaccine (1 of 1 - Influenza standard 05/11/2022 series) Care Teams Fruit Cutter Relationship Specialty Start Date End Date Kristin Wagner, ADRIANNE PCP - General 08/02/10
--- OUTSIDE RECORDS SUMMARY | 2022-03-17 00:29 | XMS_ITS | Encounter Summary ---
:1970 Author Organization [facility] Address [address] [place] [address] Care Team Providers Name Role Phone Unavailable Primary Care Provider Unavailable Encounter Details Date Type Department Care Team Description 02/14/2011 Results Only [facility] Avelino Wagner NP Laboratory Services - [address] [place] [address] [place] [address] [phone] Social History Tobacco Use Types Packs/Day Years Used Date Never Assessed Sex Assigned at Date Recorded Not on file documented as of this encounter Plan of Treatment Not on filedocumented as of this encounter Procedures Procedure Name Priority Date/Time Associated Diagnosis Comme nts PAP TEST- RESULT Routine 02/14/2011 0:00 EDT Resu lts for this ONLY procedure are i n the results section. documented in this encounter Results PAP TEST- RESULT ONLY (02/14/2011 0:00 EDT) Pathology Report: CYTOPATHOLOGY REPORT ? [facility] ? LAB Reports generated via [employer] interface contain original data; ? however they are lacking the format of the original report. ? Caution should be taken when reading/interpreting unformatted reports. ? Name: ? THERESA, KIMBERLEY ? Accession #: ? [id number] ? : ? 1970 (Age: 40) ??F ?Collect Date: ? 02/14/2011 ? Location: ? [facility] ? R eceive Date: ? 02/15/2011 ? Provider: PRESTON Mcelroy ? Copy to: ? Final Report ? SPECIMEN ADEQUACY ? Satisfactory for Eval uation ? - transformation zone compon ent present ? GENERAL CATEGORIZATION ? Negative for Intraepi thelial Lesion or Malignancy ? Last Menstural Period: 5/15/ 2011 ? Hormonal/Contraceptive statu s: Yes: Vasectomy ? Treatment History: LEEP: 199 5 ? Specimen/Source: ??Pap Test, Cervix/Endocervix, ThinPrep Imaging System with ? manual evaluation ? Document reviewed and electr onically signed by: ? Neo Franklyn, CT( CP) ? Report ??Date: 06/14/ 2011 14:33 ? HPV with Pap Test ? Date Ordered: ? 0 02/21/2011 ? Status: ?? Signed Out ?Date Complete: ? 02/24/2011 ? By: ??System Interface ? Date Reported: ? 02/24/2011 ? Interpretation ? RESULT: Negative for HPV typ es 16, 18, 31, 33, 35, 39, 45, 51, 52, ? 56, 58, 59, and 68. ? Comments ? Document reviewed and electr onically signed by: ? System Interface ? Report date: 02/24/ 11 ? By the signature above, the attending physician certifies that he/she has ? personally conducted a gross and/or microscopic examination of the described ? specimens and rendered or co nfirmed the above diagnosis. ? End of Report ? Specimen Performing Organization Address City/State/ZIP Code Phon e Number [facility] [address] [place] [address] SERVICES [facility] [address] [place] [address] documented in this encounter Visit Diagnoses Not on filedocumented in this encounter
--- OUTSIDE RECORDS SUMMARY | 2022-03-17 00:29 | XMS_ITS | Encounter Summary ---
:1970 Author Organization [facility] Address [address] [place] [address] Care Team Providers Name Role Phone Constance Parker MD Primary Care Provider Encounter Details Date Type Department Care Team Description 01/31/2022 Lab Requisition [facility] Leroy Dangelo Enc ounter for general adult medical examination without abnormal findings; Pathology & DNP Encounter for screening for malignant ne oplasm of cervix; Laboratory Medicine [address] [place] [address] DR Melyssa luna for screening for human papillomavirus (HPV) - [facility] [address] [place] [id number] Social History Tobacco Use Types Packs/Day Years Used Date Never Assessed Sex Assigned at Date Recorded Not on file documented as of this encounter Plan of Treatment Not on filedocumented as of this encounter Procedures Procedure Name Priority Date/Time Associated Diagnosis Comme nts PAP TEST Today 01/30/2022 12:00 Encounter for general Re sults for this EDT adult medical procedure are in examination without the resu lts abnormal finding s section. Encounter for screening for malignant neoplasm of cervix Encounter for screening for human papillomavirus (HPV) documented in this encounter Results PAP TEST (01/30/2022 12:00 EDT) Specimens A. Cervix and/or [facility] Endocervix , ThinPrep CENTER Imaging System with LABORATORY Manual Evaluation SERVICES Specimen Adequacy Satisfactory for [facility] MEDICAL Evaluation - CENTER transformation zone LABORATORY component present SERVICES General Negative for [facility] intraepithelial [place] lesion or malignancy LABORATORY SERVICES Attestation . [facility] signed by ZORAN Asif CT(ASCP) o n SERVICES 02/03/2022 at 16 55 Clinical History SEE BELOW [facility] SERVICES Performing Lab [facility] SERVICES Scanned Images [facility] SERVICES Specimen Pap Test - Cervix and/or Endocervix Performing Organization Address City/State/ZIP Code Phon e Number [facility] [address] [place] [address] SERVICES documented in this encounter Visit Diagnoses Diagnosis Encounter for general adult medical exam ination without abnormal findings Unspecified general medical examination Encounter for screening for malignant ne oplasm of cervix Screening for malignant neoplasm of the cervix Encounter for screening for human papill omavirus (HPV) Special screening examination for human papillomavirus (HPV) documented in this encounter Care Teams Tennis Racket Repairer Relationship Specialty Start Date End Date Constance Parker MD PCP - General 07/18/[address] [place] [phone] documented as of this encounter
--- OUTSIDE RECORDS SUMMARY | 2022-03-17 00:29 | XMS_ITS | Encounter Summary ---
:1970 Author Organization [facility] [place] [address] Care Team Providers Name Role Phone Kristin Wagner APRN Primary Care Provider [phone] Encounter Details Date Type Department Care Team Description 01/30/2012 Abstract Neurosurgery Jose Bustamante MD [facility] [place] [address] NEUROSURGERY DEPT. [phone] [place], [place] [address] ( rk) Social History Tobacco [...] on filedocumented in this encounter Care Teams Bulwark Carpenter Relationship Specialty Start Date End Date Kristin Wagner APRN PCP - General 08/02/10 documented as of this encounter
--- OUTSIDE RECORDS SUMMARY | 2022-03-17 00:29 | XMS_ITS | Encounter Summary ---
:1970 Author Organization [facility] Address [address] [facility] [place] [address] Care Team Providers Name Role Phone Kristin Wagner APRN Primary Care Provider [phone] Reason for Visit Reason Comments Follow-up lower back swelling Encounter Details Date Type Department Care Team Description 02/15/2012 Office Visit Neurosurgery at [facility] Jose Bustamante, Lumbar disc herniation [facility] MD with radiculopathy Drive [facility] (Primary Dx) [place] [address] CENTER [phone] NEUROSURGERY DEPT. [place] [id number] Social History Tobacco Use Types Packs/Day Years [...] Sign Reading Time Taken Comments Blood Pressure 112/76 02/15/2012 1:15 PM EDT Pulse 84 02/15/2012 1:15 PM EDT Temperature - - Respiratory Rate - - Oxygen Saturation - - Inhaled Oxygen Concentration - - Weight 81.6 kg (180 lb) 02/15/2012 1:15 PM EDT Height 172.7 cm (5' 8) 02/15/2012 1:15 PM EDT Body Mass Index 27.37 02/15/2012 1:15 PM EDT documented in this encounter Progress Notes Jose Bustamante MD - 02/15/2012 1:57 PM EDT Subjective: Patient ID: Kimberley Camarena is a 41 y.o. female. 4 weeks sp lumbar discectomy HPI Noted swelling around incision a few weeks ago. No drainage or erythema or pain. Was self-limited.No recent fevers. Has had a few episodes of leg pain at night, most recently about a week ago, but these, too, have been self-limited. No pain presently. Review of Systems Objective: Physical Exam Incision well-healed No swelling or fluctuance IP, quad, DF, PF all 5/5 No sensory phenomena or hypesthesia Negative SLR bilaterally Assessment and Plan: Generally doing very well - pre-op constant severe pain has resolved. Will wean medications over thenext month. Fu 3 months, no imaging. No problem-specific visit notes found for this encounter. documented in this encounter Plan of Treatment Not on filedocumented as of this encounter Visit Diagnoses Diagnosis Lumbar disc herniation with radiculopath y - Primary Displacement of lumbar intervertebral di sc without myelopathy documented in this encounter Care Teams Change Attendant Relationship Specialty Start Date End Date Kristin Wagner APRN PCP - General 08/02/10 documented as of this encounter
--- OUTSIDE RECORDS SUMMARY | 2022-03-17 00:29 | XMS_ITS | Encounter Summary ---
:1970 Author Organization [facility] [place] [address] Care Team Providers Name Role Phone Kristin Wagner APRN Primary Care Provider [phone] Encounter Details Date Type Department Care Team Description 03/20/2012 Anesthesia Event Main Operating Room Sarkis Hernandez MD [facility] [place] [address] [facility] Loyd Page MD [facility] [place] [address] [place] [address] Anesthesia Record Procedure Summary Procedure Name Responsible Anesthesia Start Anesthesia Stop Anesthesiologist Time Time LAMINOTOMY Sarkis Cole MD 03/20/12 0732 03/20/12 1037 W\DECOMPRESSION, ONE LVL, LUMBAR ,RE-EXPL (INCLDNG PART. FACETECTOMY, FORAMINOTOMY &\OR DISCECTOMY) (WRVU 18.76) (N/A Spine Lumbar) Events Date Time Event Comment 03/20/2012 07 0732 Start 1037 Stop No medications on file. Agents No agents on file. Blood No blood administrations on file. Lines, Drains, and Airways Type Details Placement Removal Incision 01/19/12; lumbar spine 01/19/12 0000 by Deandra Trevino RN Incision 03/20/12; lumbar spine 03/20/12 0000 by Herb Villafuerte RN Urethral Catheter 03/20/12; indwelling 03/20/12 0000 by Christo, double lumen catheter; Herb Arthur RN latex; 16; inserted; drainage bag to dependent drainage PIV 03/20/12; 0651; 03/20/12 0651 by 03/20/12 1126 b y 03/20/12; 1126 Sravanthi Petit Hennig, Ke lly S, RN RN documented in this encounter Social History Tobacco Use Types Packs/Day Years [...] on file documented as of this encounter OR Notes Anesthesia Postprocedure Evaluation - Basilio Neumann MD - 03/21/2012 7:01 AM EDT Patient: Kimberley Camarena Procedure(s) Performed: Procedure(s): LAMINOTOMY W\DECOMPRESSION, ONE LVL, LUMBAR ,RE-EXPL (INCLDNG PART. FACETECTOMY, FORAMINOTOMY &\OR DISCECTOMY) Patient location: PACU Post-op pain: Adequate analgesia Post-op nausea: no nausea or vomiting Last Vitals: Filed Vitals: 03/20/12 1054 BP: 123/76 Pulse: 95 Temp: Resp: 16 Post-op cardiovascular and respiratory status: is stable Level of consciousness: awake, alert and oriented Complications: no apparent complications and tolerated the procedure well Fluid Status: normal Anesthesia Preprocedure Evaluation - Sarkis Cole - 03/20/2012 7:00 AM EDT Anesthesia Evaluation Patient summary reviewed and Nursing notes reviewed No hx of anesthetic complications Airway Mallampati: I TM distance: >3 FB Neck ROM: full Comment: 01/2012: Easy mask, parry 3, grade 1 view, 7.0 ETT Dental - normal exam Pulmonary (-) COPD, asthma and shortness of breath ROS comment: Long-time smoker (1ppd x 20+ years) PE comment: Decreased breath sounds bilaterally. No adventitious sounds. Cardiovascular Exercise tolerance: good (-) hypertension, past [place], dysrhythmias, angina and murmur Rhythm: regular Rate: normal Neuro/Psych (+) neuromuscular disease (leg pain, on left, radiating from buttocks to foot), psychiatric history (depression) (-) seizures and CVA GI/Hepatic/Renal (-) GERD, liver disease and renal disease Endo/Other (-) Type II DM and hypothyroidism Abdominal Anesthesia Plan ASA 2 General with intravenous induction Patient is a 41 year old female with a significant smoking history, and radicular leg pain who is otherwise healthy and presents for re-exploration and decompression of L5-S1. Plan for general anesthesia with ETT, IV induction. Patient to be prone. Risks of anesthesia were discussed, in specific the increased risk of blindness in the prone position. Questions were answered and consent was obtained. Anesthesiology Staff (Douglas): Pre-op note as per above. I have reviewed the history, available records and diagnostic data, then formulated and discussed the anesthetic plan with patient and Dr. Neumann. Anesthetic alternatives (where appropriate), procedures, risks (minor to major) and consent for anesthesia were reviewed. All questions have been answered and the consent form signed. Plan: GA/OETT;routine monitors. Anesthetic plan and risks discussed with patient and spouse. Plan discussed with attending. documented in this encounter Plan of Treatment Not on filedocumented as of this encounter Visit Diagnoses Not on filedocumented in this encounter Care Teams Venetian Blind Maker Relationship Specialty Start Date End Date Kristin Wagner APRN PCP - General 08/02/10 documented as of this encounter
--- OUTSIDE RECORDS SUMMARY | 2022-03-17 00:29 | XMS_ITS | Encounter Summary ---
:1970 [place] [address] Care Team Providers Name Role Phone Kristin Wagner APRN Primary Care Provider [phone] Encounter Details Date Type Department Care Team Description 01/19/2012 Surgery Main Operating Room Jose Bustamante MD LAMINOTOMY, [facility] DECOMPRESSION, [facility] FORAMINOTOMY, [facility] NEUROSURGERY DEPT. (WRVU 13.18) [place] [address] [place] [address] [phone] Social History Tobacco Use Types Packs/Day Years [...] Sign Reading Time Taken Comments Blood Pressure 132/81 01/19/2012 10:21 AM EDT Pulse 85 01/19/2012 10:21 AM EDT Temperature 36.7 ??C (98.1 ??F) 01/19/2012 10:21 AM EDT Respiratory Rate 16 01/19/2012 10:21 AM EDT Oxygen Saturation 96% 01/19/2012 10:21 AM EDT Inhaled Oxygen Concentration - - [...] Bustamante MD - 01/19/2012 4:40 PM EDT [facility] Operative Note Patient Name: Kimberley Camarena : [id number] MR#: [id number] Case Date: 01/19/2012 Surgeon: Surgeon(s) and Role: * Jose BUSTAMANTE MD - Primary * CRUZITO OROZCO MD - Resident-Trestle Mechanic Preoperative diagnosis: LUMBAR RADICULOPATHY Postoperative diagnosis: LUMBAR [...] Operative Note Patient Name: Kimberley Camarena : [id number] MR#: [id number] Case Date: 01/19/2012 Surgeon: Surgeon(s) and Role: * Jose BUSTAMANTE MD - Primary * CRUZITO OROZCO MD - Resident-Trestle Mechanic Preoperative diagnosis: LUMBAR RADICULOPATHY Postoperative diagnosis: LUMBAR [...] 01/19/2012 12:23 LUMBAR RADICULOP [facility]TH[facility] LUMBAR [facility] 3.15) LAMINOTOMY, 01/19/2012 12:23 LUMBAR RADICULOPATHY DECOMPRESSION, PM EDT FORAMINOTOMY, LUMBAR ([facility] 13.18) DIFFERENTIAL, Routine 01/19/2012 10:09 Results fo [...] section. TYPE AND SCREEN STAT 01/19/2012 10:01 ([facility]/MAYRA/VIK) AM EDT documented in this encounter Results SURGICAL PATHOLOGY REPORT (01/19/2012 3:38 PM EDT) Component Value Ref Test Analysis Performed At [facility] Range Method Time Signature Surgical CERNER Pathology ? [facility] Report ? Provider: ?? Jose BUSTAMANTE ? Pt. Name: ?? DIAZ Doran, KIMBERLEY I ? Acc #: ?[id number] ?Pt. MRN: ?[id number] ? Col Date: ?? 2 ? /Sex: ?1970,(41 years),Female ? Rec Date: ?? 01/19/2012 ? LOC: ?[facility] ? SURGICAL PATHOLOGY ? ---Pathologic Diagnosis--- ? A - Intervertebral disc, L5-S1. ?Gross surgical pathology examination. ? B - Intervertebral disc, L4-5. ?Gross surgical pathology examination. ? CR-0 ? 01/22/12 ? AJE ? 01/22/12 Verified by: ? Black DO, Radha C. ? Pathologist ? (Electronic Si gnature) ? [...] MD PATHOLOGY/CYTOLOGY ORDERABLE S Performing Organization Address [facility] Code Phon e Number [address] [facility] Specimen to Pathology (surgical or derm) (01/19/2012 3:29 PM EDT) Specimen Anatomical Collection Method Collection Time Receive d Time (Source) Location / / Volume Laterality AP Specimen 01/19/2012 3:29 PM 2 3:29 EDT PM EDT Narrative [facility] - 01/19/2012 3:29 PM E DT Specimen requisition ordered. ??Separate Pathology report to follow S Eugenio Bustamante MD PATHOLOGY/CYTOLOGY ORDERABLE S Performing Organization Address [facility] Phon e Number [facility] [place] [address] CERNER MILLENNIUM Specimen to [...] Organization Address City/State/ZIP Code Phon e Number [address] CERNER MILLENNIUM DIFFERENTIAL, AUTOMATED (01/19/2012 [...] Gran Abs 0.01 0.00 - 0.05 x10(3)/mcL [facility] Specimen Anatomical Collection Method Collection Time Receive d Time (Source) Location / / Volume Laterality Blood specimen 01/19/2012 10:09 2 (specimen) AM EDT 10:13 AM EDT S Eugenio Bustamante MD HEMATOLOGY ORDERABLES Performing Organization Address City/[facility]/[place]IP [place] [address] [facility] ANTIBODY SCREEN (01/19/2012 10:09 AM EDT) Analysis Performed At Patho logist Time Signature Ab Screen Negative [facility] Expires at [id number] [facility] 2358 on: [facility] Specimen Anatomical Collection Method Collection Time Receive d Time (Source) Location / / Volume Laterality Blood specimen 01/19/2012 10:09 2 (specimen) AM EDT 10:13 AM EDT Resulting Agency Comment Spec In Lab S Eugenio Bustamante MD BLOOD BANK ORDERABLES Performing Organization Address City/[facility]/ZIP Code Phon e Number [address] [facility] ABO/RH TYPING (01/19/2012 10:09 AM EDT) P athologist Signature ABORh Type A Pos [facility] Specimen Anatomical Collection Method Collection Time Receive d Time (Source) Location / / Volume Laterality Blood specimen 01/19/2012 10:09 2 (specimen) AM EDT 10:13 AM EDT Resulting Agency Comment Spec In Lab S Eugenio Bustamante MD BLOOD BANK ORDERABLES Performing Organization Address City/[facility] [place] [address] [facility] APTT (01/19/2012 10:09 AM EDT) P athologist Signature PTT 30 25 - 35 sec [facility] Comment: Recommended therapeutic PTT range for fu ll dose unfractionated heparin is 80-114 seconds. Specimen Anatomical Collection Method Collection Time Receive d Time (Source) Location / / Volume Laterality Blood specimen 01/19/2012 10:09 2 (specimen) AM EDT 10:13 AM EDT Resulting Agency Comment Spec In Lab Jose Bustamante MD HEMATOLOGY ORDERABLES Performing Organization Address City/[facility] [place] [address] CERNER MILLENNIUM Prothrombin Time (01/19/2012 10:09 AM EDT) P athologist Signature PT 12.3 11.9 - 14.7 CERNER sec MILLENNIUM Comment: [facility] Transfusion Committee Guidelines: I NR less than [...] EDT Resulting Agency Comment Spec In Lab Jose Bustamante MD HEMATOLOGY ORDERABLES Performing Organization Address City/[facility] Phon e Number [address] CERNER MILLENNIUM Basic Metabolic Panel [...] IUM CO2 27 22 - 31 mmol/L BRENNEN LOONEYI UM Anion Gap 8 5 - 15 mmol/L BRENNEN LOONEYIU M Calcium 9.6 8.5 - 10.5 mg/dL BRENNEN CRAFTEN NIUM Estimated GFR >60 >=60 BRENNEN LOONEYIU M Comment: The National Kidney Disease Education Pr [...] disease. References: http://nkdep.nih.gov/resources/NKDEP_Sug gestn4Labs_0606_508.pdf http://www.kidney.org/professionals/kls/ pdf/faq_gfr.pdf Ash Shahid, Jose Juan NA, Jenna AK, Theo TS, [...] Bustamante MD CHEMISTRY ORDERABLES Performing Organization Address City/[facility]/[place] [address] CERNER MILLENNIUM (ABNORMAL) CBC [...] Bustamante MD HEMATOLOGY ORDERABLES Performing Organization Address City/State/ZIP Code Phon e Number [address] CERNER MILLENNIUM documented in this encounter Visit Diagnoses Not on filedocumented in this encounter Administered Medications Inactive Administered Medications - up to 3 most recent administrations Medication Order MAR Action Action Date Dose Rate Site ceFAZolin (ANCEF) 2g in Given 01/19/2012 12:49 PM EDT 2 g Left Arm dextrose 5% 100mL 2 g, Intravenous, ONCE, 1 dose, On Sun01/19/12 at 1045, Administer over 30 Minutes, To be administered upon arrival to the OR within one hour prior to incision., Day of Surgery (Day of Procedure), Indication for (Active or Suspected): Prophylaxis gelatin adsorbable (GELFOAM) Given 01/19/2012 1:53 PM EDT 1 each 19- Surgical Site sponge ONCE PRN, Starting on Sun01/19/12 at 1353, Until Sun01/19/12 at 2238, Intra-Operative (Intra-Procedure) lactated ringers infusion 1,000 New Bag 01/19/2012 10:45 AM ED T 1,000 mLs 100 mL/hr mL 1,000 mL, at 100 mL/hr, Intravenous, CONTINUOUS, Starting on Sun01/19/12 at 1045, Until Sun01/19/12 at 2238, Day of Surgery (Day of Procedure) lidocaine-epiNEPHrine 1 Given 01/19/2012 1:00 PM 5 mLs 19- Surgical Site %-1:200,000 injection EDT ONCE PRN, Starting on Sun01/19/12 at 1354, Until Sun01/19/12 at 2238, Intra-Operative (Intra-Procedure), Routine methylPREDNISolone acetate Given 01/19/2012 4:00 PM EDT 40 mg 19- Surgical Site (depo-MEDROL) injection ONCE PRN, Starting on Sun01/19/12 at 1600, Until Sun01/19/12 at 2238, Intra-Operative (Intra-Procedure), Routine thrombin (Bovine) Given 01/19/2012 1:13 PM 20,000 Units 19- Surgical Site (THROMBINAR) kit EDT ONCE PRN, Starting on Sun01/19/12 at 1313, Until Sun01/19/12 at 2238, Intra-Operative (Intra-Procedure) documented in this encounter Active and Recently Administered Medications Times are shown in EDT. Scheduled Medication Order 01/17/2012 01/18/2012 01/19/2012 ceFAZolin (ANCEF) 2g in dextrose 5% 100mL (COMPLETED) 1045 (Due)1249 (Given - Provider: Lorene Loera MD) 2 g, Intravenous, ONCE, 1 dose, 5/11 /12 at 1045, for 30 Minutes, To be [...] (Intra-Procedure) documented in this encounter Care Teams Street Superintendent Relationship Specialty Start Date End Date Kristin Wagner APRN PCP - General 08/02/10 documented as of this encounter
--- OUTSIDE RECORDS SUMMARY | 2022-03-17 00:29 | XMS_ITS | Encounter Summary ---
:1970 Author Organization [facility] Address [address] [place] [address] Care Team Providers Name Role Phone Constance Parker MD Primary Care Provider Encounter Details Date Type Department Care Team Description 01/30/2022 Lab Requisition [facility] Outr Resulting Lab, Pathology & Laboratory Provider [facility] [address] [place] [address] Social History Tobacco Use Types Packs/Day Years Used Date Never Assessed Sex Assigned at Date Recorded Not on file documented as of this encounter Plan of Treatment Not on filedocumented as of this encounter Procedures Procedure Name Priority Date/Time Associated Comments Diagnosis HIV 1/2 ANTIGEN AND Routine 01/30/2022 12:15 Resu lts for this ANTIBODY, 4TH EDT procedure are in GENERATION the results section. documented in this encounter Results HIV 1/2 ANTIGEN AND ANTIBODY, 4TH GENERATION (01/30/2022 12:15 EDT) HIV 1 and 2 NegativeComment: If Negative [facility] Antibody/p24 acute HIV-1 LABORATORY Antigen, 4th infection is SERVICES Generation suspected in a high risk patient, submit plasma specimen for HIV-1 RNA quantitation test. Specimen Blood - Venous blood (substance) Narrative [facility] LABORATORY SERVICES - 01/31/2022 10:02 EDT Fourth Generation assay performed on the Siemens Centaur XPT. Performing Organization Address City/State/ZIP Code Phon e Number [facility] [address] [place] [address] SERVICES documented in this encounter Visit Diagnoses Not on filedocumented in this encounter Care Teams Export Specialist Relationship Specialty Start Date End Date Constance Parker MD PCP - General 07/18/[address] [place] [phone] documented as of this encounter
--- OUTSIDE RECORDS SUMMARY | 2022-03-17 00:29 | XMS_ITS | Encounter Summary ---
:1970 Author Organization [facility] [address] Care Team Providers Name Role Phone Kristin Wagner APRN Primary Care Provider [phone] Encounter Details Date Type Department Care Team Description 03/20/2012 Surgery Main Operating Room Jose Bustamante MD LAMINOTOMY [facility] R W\DECOMPRESSION, [facility] DR [place], LUMBAR ,RE-EXPL [facility] NEUROSURGERY DEPT. (INCLDNG PART. [place] [id number] FACETECTOMY, [place] [phone] FORAMINOTOMY &\OR [phone] DISCECTOM Y) [facility] Social History Tobacco Use Types Packs/Day Years [...] Sign Reading Time Taken Comments Blood Pressure 123/76 03/20/2012 10:54 AM EDT Pulse 95 03/20/2012 10:54 AM EDT Temperature 36.4 ??C (97.5 ??F) 03/20/2012 10:31 AM EDT Respiratory Rate 16 03/20/2012 10:54 AM EDT Oxygen Saturation 95% 03/20/2012 10:54 AM EDT Inhaled Oxygen Concentration - - Weight - - Height - - Body Mass Index - - documented in this encounter Discharge Instructions Discharge InstructionsOtilia Benito RN - 03/20/2012 10:46 AM EDT POST ANESTHESIA INSTRUCTIONS Go home, rest, [...] usually goes away in 12-24 hours. Patient InstructionsFer Amador - 03/20/2012 10:39 AM EDT DISCHARGE INSTRUCTIONS INSTRUCTIONS: Please leave your dressings intact and your incision covered for 72 hours following surgery. After that time it is fine to remove the dressings. The white steristrips will fall off on their own. Please do not let your incision come into contact with water for 72 hours. After that time, if your incision gets wet gently towel dry it. Do not submerge your incision in water for 14 days Your sutures are absorbable and will dissolve on their own PLEASE NOTIFY YOUR PROVIDER OR RETURN TO CLINIC IF YOU NOTICE THE FOLLOWING: If you develop a fever (temperature > 101.3) Have redness or swelling extending outwards from your incision Notice drainage or bleeding from you incision Develop worsening weakness, numbness, tingling, or pain in your legs Develop urinary or bowel incontinence If you have any other concerning signs or symptoms ACTIVITY INSTRUCTIONS: ?? It is important to limit yourself to light activity for the next two weeks. Please refrain from heavy lifting, bending or twisting movements. ?? Light activity such as walking is recommended ?? Do not lift any object heavier than a milk jug If you need to reach us please call [phone] during office hours or by calling the hospital cigar making machine operator at [phone] after hours and asking to speak with the neurosurgery resident oracle application architect. documented in this encounter Medications at Time of Discharge Medication Sig Dispensed Refills Start Date End Date OXYcodone (ROXICODONE) 5 mg Take 1-2 tablets by 60 tablet 0 03/20/2012 immediate release tablet mouth every 4 hours as needed for Pain. venlafaxine (EFFEXOR) 75 mg Take 150 mg by 0 tablet mouth 2 times daily. misoprostol (CYTOTEC) 200 Take 200 mcg by 0 mcg tablet mouth 2 times daily. diclofenac (VOLTAREN) 75 mg Take 75 mg by mouth 0 EC tablet 2 times daily. gabapentin (NEURONTIN) 800 Take 800 mg by 0 mg tablet mouth 3 times daily. cyclobenzaprine (FLEXERIL) Take 10 mg by mouth 0 10 mg tablet daily. documented as of this encounter Progress Notes Otilia Benito RN - 03/20/2012 10:58 AM EDT Pt ambulated to to void, no issues Fer Amador - 03/20/2012 6:51 AM EDT 24-HOUR UPDATE Kimberley Greer Migue was seen in SDP. No interval events or changes in health status since preoperative H+P (see EPIC). Denies angina/dyspnea/fevers or malaise within the last 14 days. All questions were answered. Stable for surgery as scheduled. documented in this encounter H&P Notes Fer Amador - 03/20/2012 6:51 AM EDT NEUROSURGERY HISTORY/PHYSICAL HPI: This is a 41 y.o. s/p L4-L5, L5-S1 laminotomy and discectomy. 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 Will proceed to OR. ROS: Constitutional: No recent weight loss / fevers / chills / night sweats. HEENT: No recent visual changes / hearing changes. Cardiovascular: No chest pain / palpitations. Pulmonary: No shortness of breath / cough GI: No abdominal pain / vomiting / change in bowel pattern : No dysuria / urinary retention / urinary incontinence. PMHx: Refer to above. Otherwise unremarkable. Specifically denies recent fever/malaise, cardiac disease including hypertension/myocardial ischemia or infarction/arrhythmia, pulmonary disease such as asthma or COPD, renal disease, endocrine dysfunction, or peripheral vascular disease. There is no history in t he patient or their family of bleeding diathesis or easy bleeding or bruising. PSHx: No prior difficulties with anesthesia. FHx: Noncontributory SHx: +tobacco Allergies Allergen Reactions ??? Miscellaneous Reagents Scallops and fish ... Nausea.. Diarrhea ??? Nitrofurantoin Monohyd/m-cryst Hives No current facility-administered medications on file prior to encounter. Current outpatient prescriptions ordered prior to encounter Medication Sig Dispense Refill ??? predniSONE (DELTASONE) 10 mg tablet Take 10 mg by mouth daily. ??? venlafaxine (EFFEXOR) 75 mg tablet Take 150 mg by mouth 2 times daily. ??? misoprostol (CYTOTEC) 200 mcg tablet Take 200 mcg by mouth 2 times daily. ??? diclofenac (VOLTAREN) 75 mg EC tablet Take 75 mg by mouth 2 times daily. ??? gabapentin (NEURONTIN) 800 mg tablet Take 800 mg by mouth 4 times daily. ??? cyclobenzaprine (FLEXERIL) 10 mg tablet Take 10 mg by mouth daily. ??? hydroCODone-acetaminophen (NORCO) 10-325 mg per tablet Take 1 tablet by mouth every 6 hours as needed. Tapering EXAM: GEN:NAD. Well appearing NEURO:AA No facial asymmetry Tongue midline Motor exam: RUE: 5/5 RLE: 5/5 LUE: 5/5 LLE: 5/5 LT sensation intact x 4 CV:RRR. Normal S1/S2. No m/r/g PULM:CTAB. No w/r/r EXT: warm/well perfused A/P: Will proceed to OR documented in this encounter Miscellaneous Notes OR Attestation - Jose Bustamante MD - 03/22/2012 11:56 AM EDT Attestation: Case Date: 03/20/2012 I was present and I participated during the entire procedure. Jose BUSTAMANTE MD 03/22/2012 Op Note - Jose Bustamante MD - 03/22/2012 11:46 AM EDT [facility] [place] Patient Name: Kimberley Camarena : [id number] MR#: [id number] Case Date: 03/20/2012 Surgeon: Surgeon(s) and Role: * Jose BUSTAMANTE MD - Primary * FER AMADOR MD Preoperative diagnosis: RECURRENT L5-S1 HNP Postoperative diagnosis: RECURRENT L5-S1 HNP Procedure(s): LAMINOTOMY W\DECOMPRESSION, ONE LVL, LUMBAR ,RE-EXPL (INCLDNG PART. FACETECTOMY, FORAMINOTOMY &\OR DISCECTOMY) Procedure: Left L5-S1 diskectomy for re-herniated fragment. Indications: Ms. Camarena presents with recurrent leg pain after a successful two-level diskectomy at L4-L5 and L5-S1. Repeat MRI demonstrated evidence of a recurrent disk herniation at L5-S1 compressing the S1 root. She is brought to the Operating Room for the above procedure. Operative Findings: A very large free fragment was compressing the left S1 root. This was removed in its entirety. The disk space was largely collapsed. A small amount of additional disk material was able to be evacuated from the disk space. No additional loose fragments were identified. No CSF was seen. Description of the Operative Procedure: The patient was brought to the Operating Room and general endotracheal anesthesia induced. She was placed prone on the spine tap table. Her lower back was prepped and draped in the usual sterile fashion. Subcutaneous tissues were infiltrated with 1% lidocaine and 1:200,000 epinephrine. After an appropriate time-out, the lower portion of the previous incision was reopened and dissection carried down through the dorsal fascia. The paraspinous musculature was elevated off the previous laminotomy defect. Intraoperative x-ray confirmed correct level. Within the laminotomy defect there was immediately evident a fairly large piece of disk material causing compression on the left S1 root. The disk fragment was carefully withdrawn in three pieces. After removing the disk fragment, we were able to clearly visualize the thecal sac. The space ventral to the left S1 root was carefully palpated and no additional disk material identified. With gentle traction on the shoulder of the left S1 root, we were able to visualize the previous annulotomy defect. As noted above, there was significant loss of height such that it was very difficult to even get a curet within the space. We did remove some additional loose material that was relatively superficially positioned. Once satisfied that the nerve was completely decompressed and no additional fragments were likely to emanate from the disk space, the decision was made to close. Depo-Medrol 0.5 mL was placed within the epidural space after copious irrigation. The wound was then closed in layers with interrupted Vicryl suture and the skin closed with a running 4-0 subcuticular Monocryl. Sterile dressings were applied and the patient brought to the Recovery Area in stable condition. Miscellaneous - Provider, Scanning - 03/21/2012 3:21 AM EDT Miscellaneous - Provider, Scanning - 03/21/2012 3:19 AM EDT Brief Op Note - Fer Amador - 03/20/2012 10:11 AM EDT Brief Operative Note Patient Name: Kimberley Camarena : [id number] MR#: [id number] Case Date: 03/20/2012 Surgeon: Surgeon(s) and Role: * Jose BUSTAMANTE MD - Primary * FER AMADOR MD Preoperative diagnosis: RECURRENT L5-S1 HNP Postoperative diagnosis: RECURRENT L5-S1 HNP Procedure(s): LAMINOTOMY W\DECOMPRESSION, ONE LVL, LUMBAR ,RE-EXPL (INCLDNG PART. FACETECTOMY, FORAMINOTOMY &\OR DISCECTOMY) Anesthesia: General Findings: Recurrent disc herniation Complications: None Estimated Blood Loss: 50cc Drains: None Disposition: awakened from anesthesia, extubated and taken to the recovery room in a stable condition, having suffered no apparent untoward event. Condition: doing well without problems (Please see the Surgical Encounter Summary for any Implant and Specimen details pertinent to this patient.) Miscellaneous - Provider, Scanning - 03/20/2012 6:59 AM EDT documented in this encounter Plan of Treatment Pending Results Name Type Priority Associated Diagnoses Date/Ti me XR Fluoro OR c-arm Imaging Routine 2 10:33 AM EDT storage only Scheduled Orders Name Type Priority Associated Diagnoses Order S chedule XR Fluoro OR c-arm Imaging Routine Once PRN (for Radiant storage only use) for 1 Occu rrences starting 2011 until 03/20/2012 documented as of this encounter Procedures Procedure Name Priority Date/Time Associated Comments Diagnosis SURGICAL PATHOLOGY Routine 03/20/2012 10:05 Resul ts for this REPORT AM EDT procedure are i n the results section. SPECIMEN TO PATHOLOGY Routine 03/20/2012 8:59 AM Results for this EDT procedure are i n the results section. LAMINOTOMY 03/20/2012 7:24 AM RECURRENT L5-S1 HNP W\DECOMPRESSION, ONE EDT LVL, LUMBAR ,RE-EXPL (INCLDNG PART. FACETECTOMY, FORAMINOTOMY &\OR DISCECTOMY) (WRVU 18.76) DIFFERENTIAL, Routine 03/20/2012 5:59 AM Results for this AUTOMATED EDT procedure are i n the results section. ABO/RH TYPING STAT 03/20/2012 5:59 AM Results for this EDT procedure are i n the results section. APTT Routine 03/20/2012 5:59 AM Results f or this EDT procedure are i n the results section. PROTHROMBIN TIME Routine 03/20/2012 5:59 AM Resul ts for this EDT procedure are i n the results section. CBC (WITH DIFF) Routine 03/20/2012 5:59 AM Result s for this EDT procedure are i n the results section. ANTIBODY SCREEN STAT 03/20/2012 5:59 AM Result s for this EDT procedure are i n the results section. BASIC METABOLIC PANEL Routine 03/20/2012 5:59 AM Results for this (NON-FASTING) EDT procedure are in the results section. TYPE AND SCREEN STAT 03/20/2012 5:51 AM [place] [place] EDT documented in this encounter Results SURGICAL PATHOLOGY REPORT (03/20/2012 10:05 AM EDT) Component Value Ref Test Analysis Performed At [facility] Range Method Time Signature Surgical CERNER Pathology ? [facility] Report ? Provider: ?? Jose BUSTAMANTE ? Pt. Name: ?? KIMBERLEY FOX I ? Acc #: ?[id number] ?Pt. MRN: ?[id number] ? Col Date: ?? 2 ? /Sex: ?1970,(41 years),Female ? Rec Date: ?? 03/20/2012 ? LOC: ?[facility] ? SURGICAL PATHOLOGY ? ---Pathologic Diagnosis--- ? Intervertebral disc, L5-S1. ?Gross surgical pathology examination. ? CR-0 ? 03/21/12 ? VMS ? 03/22/12 Verified by: ? Alexis Dixon MD ? Pathologist ? (Electronic Si gnature) ? The attending pathologist whose signature appears o n this report has ? reviewed all diagnostic slides and has edited the dileep ss and/or ? microscopic portion of the report in rendering the fi nal pathologic ? diagnosis. ? ---Gross Description--- ? Labeled/Fixative: ? L5-S1 disc, fresh. ? Quantity/Size: ?Fragments, 4.0 x 3.0 x 1.0 cm. ? Tissue Description: ?? Dense, jung-white, friable fra gments. ? Sections/Processing: ??No sections are submitted. ??v ms/EJR ? ---Clinical Information--- ? Specimen Submitted: ? A - L5-S1 disc ? Clinical History/Diagnosis: ? Recurrent L5-S1 HNP Specimen (Source) Anatomical Collection Method Collection Time Re ceived Time Location / / Volume Laterality 03/20/2012 10:05 AM EDT S Eugenio Bustamante MD PATHOLOGY/CYTOLOGY ORDERABLE S Performing Organization Address City/[facility]/ZIP [facility] [place] [address] BRENNEN CRAFTENNIUM Specimen to Pathology (surgical or derm) (03/20/2012 8:59 AM EDT) Specimen Anatomical Collection Method Collection Time Receive d Time (Source) Location / / Volume Laterality AP Specimen 03/20/2012 8:59 AM 2 8:59 EDT AM EDT Narrative NATANAELNER MILLENNIUM - 03/20/2012 8:59 AM E DT Specimen requisition ordered. ??Separate Pathology report to follow S Eugenio Bustamante MD PATHOLOGY/CYTOLOGY ORDERABLE S Performing Organization Address City/[facility] [place] [address] CERNER MILLENNIUM (ABNORMAL) DIFFERENTIAL, AUTOMATED (03/20/2012 5:59 AM EDT) [facility] gist Method Time Signature Neutrophils % 52.9 34.0 - CERNER 71.0 % MILLENNIUM Neutr Abs (ANC) 6.57 (H) 1.50 - CERNER 6.30 MILLENNIUM x10(3)/mc L Lymphocytes % 37.8 19.0 - CERNER 53.0 % MILLENNIUM Lymphocytes Abs 4.7 (H) 1.0 - 3.6 CERNER x10(3)/mc MILLENNIUM L Monocytes % 5.9 4.0 - CERNER 13.0 % MILLENNIUM Monocyte Abs 0.7 0.2 - 1.0 CERNER x10(3)/mc MILLENNIUM L Eosinophils % 3.1 0.0 - 7.0 CERNER % MILLENNIUM Eosinophils Abs 0.4 0.0 - 0.5 CERNER x10(3)/mc MILLENNIUM L Basophils % 0.2 0.0 - 2.0 CERNER % MILLENNIUM Basophils Abs 0.0 0.0 - 0.2 CERNER x10(3)/mc MILLENNIUM L Immature Gran % 0.10 0.00 - CERNER [...] Location / / Volume Laterality Blood specimen 03/20/2012 5:59 AM 012 6:08 (specimen) EDT AM EDT S Eugenio Bustamante MD HEMATOLOGY ORDERABLES Performing Organization Address City/[facility]/[place] [address] CERNER MILLENNIUM ANTIBODY SCREEN (03/20/2012 5:59 AM EDT) Analysis Performed At Patho logist Time Signature Ab Screen Negative CERNER Interp MILLENNIUM Expires at [id number] CERNER 2358 on: MILLENNIUM Specimen Anatomical Collection Method Collection Time Receive d Time (Source) Location / / Volume Laterality Blood specimen 03/20/2012 5:59 AM 012 6:05 (specimen) EDT AM EDT Resulting Agency Comment Spec In Lab S Eugenio Bustamante MD BLOOD BANK ORDERABLES Performing Organization Address City/State/[place] [address] CERNER MILLENNIUM ABO/RH TYPING (03/20/2012 5:59 AM EDT) athologist Signature ABORh Type A Pos CERNER MILLENNIUM Specimen Anatomical Collection Method Collection Time Receive d Time (Source) Location / / Volume Laterality Blood specimen 03/20/2012 5:59 AM 012 6:05 (specimen) EDT AM EDT Resulting Agency Comment Spec In Lab S Eugenio Bustamante MD BLOOD BANK ORDERABLES Performing Organization Address City/State/ZIP Code Phon e Number [address] CERNER MILLENNIUM APTT (03/20/2012 5:59 AM EDT) athologist Signature PTT 28 25 - 35 sec CERNER MILLENNIUM Comment: Recommended therapeutic PTT range for fu ll dose unfractionated heparin is 80-114 seconds. Specimen Anatomical Collection Method Collection Time Receive d Time (Source) Location / / Volume Laterality Blood specimen 03/20/2012 5:59 AM 012 6:08 (specimen) EDT AM EDT Resulting Agency Comment Spec In Lab S Eugenio Bustamante MD HEMATOLOGY ORDERABLES Performing Organization Address City/[facility]/ZIP Code Phon e Number [address] CERNER MILLENNIUM Prothrombin Time (03/20/2012 5:59 AM EDT) P athologist Signature PT 11.9 11.9 - 14.7 CERNER sec MILLENNIUM Comment: [facility] Transfusion Committee Guidelines: I NR less than 2.0, PTT less than OR equal to 43.5 seconds, or Fibrinogen gre ater than or equal to 100 mg/dl indicate adequate procoagulant activity for hemostasis in patients without underlying bleeding disorders. INR 0.9 0.9 - 1.1 CERNER MILLENNIUM Specimen Anatomical Collection Method Collection Time Receive d Time (Source) Location / / Volume Laterality Blood specimen 03/20/2012 5:59 AM 012 6:08 (specimen) EDT AM EDT Resulting Agency Comment Spec In Lab S Eugenio Bustamante MD HEMATOLOGY ORDERABLES Performing Organization Address City/State/ZIP Code Phon e Number [place] [phone] CERNER MILLENNIUM Basic Metabolic Panel (non-fasting) (03/20/2012 5:59 AM EDT) P athologist Signature Glucose Lvl 86 60 - 199 CERNER mg/dL MILLENNIUM Comment: Diabetes: >=200 mg/dL plus symp toms BUN 15 8 - 18 mg/dL CERNER MILLENNIUM Creatinine 0.73 0.70 - 1.20 mg/dL CERNER MILL ENNIUM Comment: Please note that the pediatric reference intervals supplied above were not validated at [facility] [place] Results from pediatri c patients should be interpreted in conjunction to the patient's age, height and muscle mass. Sodium 138 135 - 145 mmol/L CERNER CATHIE NIUM Potassium 4.8 3.5 - 5.0 mmol/L CERNER CATHIE NIUM Comment: Please note: ??Patients with WBC >100,00 0 may have falsely elevated Potassium levels. ??For accurate Potassium quantif ication in these patients send serum separator tube (gold top) for subsequent determinations. ??Contact the Clinical Chemistry Laboratory if there are any qu estions. Chloride 102 98 - 107 mmol/L CERNER MILLENN IUM CO2 28 22 - 31 mmol/L CERNER MILLENNI UM Anion Gap 8 5 - 15 mmol/L CERNER MILLENNIU M Calcium 9.0 8.5 - 10.5 mg/dL CERNER CATHIE NIUM Estimated GFR >60 >=60 CERNER MILLENNIU M Comment: The National Kidney Disease Education [...] Location / / Volume Laterality Blood specimen 03/20/2012 5:59 AM 012 6:08 (specimen) EDT AM EDT Resulting Agency Comment Spec In Lab S Eugenio Bustamante MD CHEMISTRY ORDERABLES Performing Organization Address City/State/ZIP Code Phon e Number [place] [phone] CERNER MILLENNIUM (ABNORMAL) CBC (with Diff) (03/20/2012 5:59 AM EDT) P athologist Signature WBC 12.4 (H) 4.0 - 10.0 CERNER x10(3)/mcL MILLENNIUM RBC 4.69 3.93 - CERNER 5.22 MILLENNIUM x10(6)/mcL Hemoglobin 15.0 11.2 - CERNER 15.7 gm/dL MILLENNIUM Hematocrit 43.9 34.0 - CERNER 45.0 % MILLENNIUM MCV 93.6 79.0 - CERNER 94.0 fL [facility] MCH 32.0 26.6 - CERNER 32.2 pg [facility] MCHC 34.2 32.0 - CERNER 36.5 gm/dL [facility] Platelets 235 145 - 370 CERNER x10(3)/mcL [facility] RDWSD 46.1 (H) 35.0 - CERNER 46.0 fL [facility] RDWCV 13.5 10.9 - CERNER 14.4 % [facility] MPV 9.3 9.0 - 12.0 CERNER fL [facility] Specimen Anatomical Collection Method Collection Time Receive d Time (Source) Location / / Volume Laterality Blood specimen 03/20/2012 5:59 AM 012 6:08 (specimen) EDT AM EDT Resulting Agency Comment Spec In Lab S Eugenio Bustamante MD HEMATOLOGY ORDERABLES Performing Organization Address City/State/[place] [address] [facility] documented in this encounter Visit Diagnoses Not on filedocumented in this encounter Administered Medications Inactive Administered Medications - up to 3 most recent administrations Medication Order MAR Action Action Date Dose Rate Site bacitracin injection Given 03/20/2012 8:55 50,000 Units 19- Surgical Site ONCE PRN, Starting on AM EDT Sun03/20/12 at 0855, Until Sun03/20/12 at 1504, Intra-Operative (Intra-Procedure), Routine ceFAZolin (ANCEF) 1g in dextrose 5% 50mL Given 03/20/2012 7:48 AM EDT 1 g 1,000 mg (1 g), Intravenous, ONCE, 1 dose, On Sun03/20/12 at 0715, Administer over 30 Minutes, To be administered upon arrival to the OR within one hour prior to incision., Day of Surgery (Day of Procedure), Indication for (Active or Suspected): Prophylaxis gelatin adsorbable (GELFOAM) Given 03/20/2012 8:56 AM EDT 2 each 19- Surgical Site sponge ONCE PRN, Starting on Sun03/20/12 at 0856, Until Sun03/20/12 at 1504, Intra-Operative (Intra-Procedure) lidocaine-epiNEPHrine 1 %-1:200,000 inje ction Given 03/20/2012 8:55 AM EDT 4 mLs ONCE PRN, Starting on Sun03/20/12 at 0855, Until Sun03/20/12 at 1504, Intra-Operative (Intra-Procedure), Routine methylPREDNISolone acetate Given 03/20/2012 9:53 AM EDT 20 mg 19- Surgical Site (depo-MEDROL) injection ONCE PRN, Starting on Sun03/20/12 at 0953, Until Sun03/20/12 at 1504, Intra-Operative (Intra-Procedure), Routine thrombin (Bovine) Given 03/20/2012 8:56 AM 5,000 Units 19- Surgical Site (THROMBINAR) kit EDT ONCE PRN, Starting on Sun03/20/12 at 0856, Until Sun03/20/12 at 1504, Intra-Operative (Intra-Procedure) documented in this encounter Active and Recently Administered Medications Times are shown in EDT. Scheduled Medication Order 03/18/2012 03/19/2012 03/20/2012 acetaminophen (TYLENOL) tablet 1,000 mg (CANCELED) 1105 (Given - Provider: Otilia Benito RN) 1,000 mg, Oral, EVERY 6 HOURS, First dos e on Sun03/20/12 at 1100, Until Discontinued, Maximum dose of acetaminophen is 4000 mg from all sources in 24 hours., Routine ceFAZolin (ANCEF) 1g in dextrose 5% 50mL (COMPLETED) 0715 (Due)0748 (Given - Provider: Basilio Neumann MD) 1 g = 1,000 mg, Intravenous, ONCE, 1 dos e, Sun03/20/12 at 0715, for 30 Minutes, To be administered upon arrival to the OR within one hour prior to incision., Day of Surgery (Day of Procedure) Continuous Medication Order 03/18/2012 03/19/2012 03/20/2012 lactated ringers infusion 1,000 mL (CANCELED) 0651 (New Bag - Provider: Sravanthi Petit RN) 1,000 mL, at 100 mL/hr, Intravenous, CON TINUOUS, Starting Sun03/20/12 at 0715, Until Sun03/20/12 at 1504, Day of Surgery (Day of Procedure) PRN Medication Order 03/18/2012 03/19/2012 03/20/2012 bacitracin injection (CANCELED) 0855 (Given - Provider: Jose Bustamante MD - Comment: 07773 units/ liter LR used thruout the case) ONCE PRN, Starting Sun03/20/12 at 0855, Until Sun03/20/12 at 1504, Intra- Operative (Intra-Procedure), Routine gelatin adsorbable (GELFOAM) sponge (CANCELED) 0856 (Given - Provider: Jose Bustamante MD) ONCE PRN, Starting Sun03/20/12 at 0856, For 1 dose, Intra-Operative (Intra-Procedure) lidocaine-epiNEPHrine 1 %-1:200,000 injection (CANCELED) 0855 (Given - Provider: Jose Bustamante MD) ONCE PRN, Starting Sun03/20/12 at 0855, Until Sun03/20/12 at 1504, Intra- Operative (Intra-Procedure), Routine methylPREDNISolone acetate (depo-MEDROL) injection (CANCELED) 0953 (Given - Provider: Jose Bustamante MD - Comment: topically onto surgical site) ONCE PRN, Starting Sun03/20/12 at 0953, Until Sun03/20/12 at 1504, Intra- Operative (Intra-Procedure), Routine OXYcodone (ROXICODONE) immediate release tablet 5-10 mg 1105 (Given - Provider: Otilia Benito RN) 5-10 mg, Oral, EVERY 4 HOURS PRN, Starti ng Sun03/20/12 at 1035, Until Sun03/20/12 at 1504, Pain, Routine thrombin (Bovine) (THROMBINAR) kit (CANCELED) 0856 (Given - Provider: Jose Bustamante MD) ONCE PRN, Starting Sun03/20/12 at 0856, For 1 dose, Intra-Operative (Intra-Procedure) documented in this encounter Care Teams Motorcycle Sales Associate Relationship Specialty Start Date End Date Kristin Wagner APRN PCP - General 08/02/10 documented as of this encounter
--- OUTSIDE RECORDS SUMMARY | 2022-03-17 00:29 | XMS_ITS | Encounter Summary ---
:1970 Author Organization [facility] [place] [address] Care Team Providers Name Role Phone Kristin Wagner APRN Primary Care Provider [phone] Reason for Visit Reason Comments Results had MRI prior Encounter Details Date Type Department Care Team Description 03/14/2012 Follow-Up Neurosurgery at [facility] Jose Bustamante, Lumbar radiculopathy [facility] (Primary Dx) [place] [address] [phone] NEUROSURGERY [place], [place] [address] Social History Tobacco Use Types [...] Sign Reading Time Taken Comments Blood Pressure 128/84 03/14/2012 4:03 PM EDT Pulse 104 03/14/2012 4:03 PM EDT Temperature - - Respiratory Rate - - Oxygen Saturation - - Inhaled Oxygen Concentration - - Weight 83.9 kg (185 lb) 03/14/2012 4:03 PM EDT Height 172.7 cm (5' 8) 03/14/2012 4:03 PM EDT Body Mass Index 28.13 03/14/2012 4:03 PM EDT documented in this encounter Progress Notes Jose Bustamante MD - 03/14/2012 4:45 PM EDT Subjective: Patient ID: Kimberley Camarena is a 41 y.o. female. 6 weeks sp L4-5 and L5-S1 discectomy HPI Recurrence of pain, started 2 weeks ago (shortly after last visit). Describes pain in left buttock, posterior thigh, posterior calf. No numbness or weakness. On Medrol dosepak, still taking gabapentin. Review of Systems Objective: Physical Exam Full strength B DF, EHL, PF No hypesthesia or paresthesia +SLR on the L Incision well healed, non-tender Repeat MRI shows sizable L5-S1 recurrent disc on the L, compressing L S1 root. At L4-5 there is enhancement consistent with granulation, but no obviuos disc herniation. 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 Recommended re- exploration and repeatdiscectomy. She will think about it and call our office. No problem-specific visit notes found for this encounter. documented in this encounter Plan of Treatment Not on filedocumented as of this encounter Visit Diagnoses Diagnosis Lumbar radiculopathy - Primary Thoracic or lumbosacral neuritis or radi culitis, unspecified documented in this encounter Care Teams Executive Legal Secretary Relationship Specialty Start Date End Date Kristin Wagner, CREDIT ANALYST PCP - General 08/02/10 documented as of this encounter
--- OUTSIDE RECORDS SUMMARY | 2022-03-17 00:29 | XMS_ITS | Encounter Summary ---
:1970 Author Organization [place] [address] Care Team Providers Name Role Phone Bernard Kristin Perez APRN Primary Care Provider [phone] Encounter Details Date Type Department Care Team Description 01/19/2012 Anesthesia Event Main Operating Room St korey Greenberg MD [facility] [place] [address] [facility] Lorene Loera MD [facility] [place] [address] [place] [address] Anesthesia Record Procedure Summary Procedure Name Responsible Anesthesia Start Anesthesia Stop Time Anesthesiologist Time LAMINOTOMY, Guy Greenberg MD 01/19/12 1226 01/19/12 1 645 DECOMPRESSION, FORAMINOTOMY, LUMBAR (WRVU 13.18) (N/A Spine Lumbar) Events Date Time Event Comment 01/19/2012 1047 1226 Start 1645 Stop No medications on file. Agents No agents on file. Blood No blood administrations on file. Lines, Drains, and Airways Type Details Placement Removal Incision 01/19/12; lumbar spine 01/19/12 0000 by Deandra Trevino RN PIV 01/19/12; 1053; 01/19/12; 01/19/12 1053 by Marilia glover, 01/19/12 1917 by LUCY Leigh Rosanne , RN documented in this encounter Social History [...] encounter OR Notes Anesthesia Postprocedure Evaluation - Guy Greenberg MD - 01/22/2012 6:59 AM EDT Patient: Kimberley Camarena Procedure(s) Performed: Procedure(s): LAMINOTOMY, DECOMPRESSION, FORAMINOTOMY, LUMBAR ADD'L INTERSPACES CX OR LUMBAR Patient location: PACU Post-op pain: Adequate analgesia Post-op nausea: no nausea or vomiting Last Vitals: Filed Vitals: 01/19/12 1834 BP: 133/77 Pulse: 85 Temp: 36.9 ??C (98.4 ??F) Resp: Post-op cardiovascular and respiratory status: is stable Level of consciousness: awake Complications: no apparent complications Fluid Status: normal Anesthesia Preprocedure Evaluation - Guy Greenberg MD - 01/19/2012 10:45 AM EDT Anesthesia Evaluation No hx of anesthetic complications Airway Mallampati: II TM distance: >3 FB Neck ROM: full Dental Pulmonary ROS comment: 1 ppd smoker Cardiovascular - negative ROS Exercise tolerance: good (-) past NE Neuro/Psych Comments: Chronic opioid use for LBP. On antidepression medication GI/Hepatic/Renal (-) GERD Endo/Other Abdominal Anesthesia Plan ASA 2 General with intravenous induction GA/ETT/prone position risks including eye problems and neuropathy discussed. She consents. Anesthetic plan and risks discussed with patient. Plan discussed with resident. documented in this encounter Miscellaneous Notes Addendum Note - Komal Coe - 01/22/2012 12:07 PM EDT Addendum created 01/22/12 1207 by Komal Coe Modules edited:Anesthesia Events, Anesthesia Responsible Staff documented in this encounter Plan of Treatment Not on filedocumented as of this encounter Visit Diagnoses Not on filedocumented in this encounter Care Teams Pants Maker Relationship Specialty Start Date End Date Kristin Wagner, ADRIANNE PCP - General 08/02/10 documented as of this encounter
--- OUTSIDE RECORDS SUMMARY | 2022-03-17 00:29 | XMS_ITS | Encounter Summary ---
:1970 Author Organization [facility] [place] [address] Care Team Providers Name Role Phone Kristin Wagner APRN Primary Care Provider [phone] Encounter Details Date Type Department Care Team Description 03/20/2012 Hospital Encounter Same Day Admit Jose Mcpherson MD [facility] [address] [place] [address] [place] [address] [phone] (Wo rk) Social History Tobacco Use Types [...] you need to reach us please call [phone] during office hours or by calling the hospital tool room gear machine operator at [phone] after hours and asking to speak with the neurosurgery resident cash van salesperson. documented in this encounter Medications at Time [...] 03/20/2012 6:51 AM EDT 24-HOUR UPDATE Kimberley Camarena was seen in SDP. No interval events [...] Bustamante MD - 03/22/2012 11:46 AM EDT [facility] Operative Note Patient Name: Kimberley Camarena : [id number] MR#: [id number] Case Date: 03/20/2012 Surgeon: Surgeon(s) and Role: [...] Operative Note Patient Name: Kimberley Camarena : [id number] MR#: [id number] Case Date: 03/20/2012 Surgeon: Surgeon(s) and Role: [...] TYPE AND SCREEN STAT 03/20/2012 5:51 AM ([facility]/VIK) EDT documented in this encounter Results SURGICAL PATHOLOGY REPORT (03/20/2012 10:05 AM EDT) Component Value Ref Test Analysis Performed At [facility] Range Method Time Signature Surgical CERNER Pathology ? [facility] Report ? Provider: ?? Jose BUSTAMANTE ? Pt. Name: ?? DIAZ Doran, KIMBERLEY Butterfield ? Acc #: ?[id number] ?Pt. MRN: ?[id number] ? Col Date: ?? 2 ? /Sex: [...] MD PATHOLOGY/CYTOLOGY ORDERABLE S Performing Organization Address City/[facility]/[place] [address] CERNER MILLENNIUM Specimen to Pathology (surgical or derm) (03/20/2012 8:59 AM EDT) Specimen Anatomical Collection Method Collection Time Receive d Time (Source) Location / / Volume Laterality AP Specimen 03/20/2012 8:59 AM 2 8:59 EDT AM EDT Narrative CERNER MILLENNIUM - 03/20/2012 8:59 AM E DT Specimen requisition ordered. ??Separate Pathology report to follow S Eugenio Bustamante MD PATHOLOGY/CYTOLOGY ORDERABLE S Performing Organization Address City/[facility]/[place] [address] CERNER MILLENNIUM (ABNORMAL) DIFFERENTIAL, AUTOMATED (03/20/2012 5:59 AM EDT) [facility] gist Method Time Signature Neutrophils % 52.9 [...] 0.01 0.00 - 0.05 x10(3)/mcL CER NER [facility] Specimen Anatomical Collection Method Collection Time Receive d Time (Source) Location / / Volume Laterality Blood specimen 03/20/2012 5:59 AM 012 6:08 (specimen) EDT AM EDT S Eugenio Bustamante MD HEMATOLOGY ORDERABLES Performing Organization Address City/State/ZIP Code Phon e Number [address] [facility] ANTIBODY SCREEN (03/20/2012 5:59 AM EDT) Analysis Performed At Patho logist Time Signature Ab Screen Negative [facility] Expires at [phone] [facility] 2358 on: [facility] Specimen Anatomical Collection Method Collection Time Receive d Time (Source) Location / / Volume Laterality Blood specimen 03/20/2012 5:59 AM 012 6:05 (specimen) EDT AM EDT Resulting Agency Comment Spec In Lab S Eugenio Bustamante MD BLOOD BANK ORDERABLES Performing Organization Address City/[facility]/[place] [address] [facility] ABO/RH TYPING (03/20/2012 5:59 AM EDT) P athologist Signature ABORh Type A Pos CERNER MILLENNIUM Specimen Anatomical Collection Method Collection Time Receive d Time (Source) Location / / Volume Laterality Blood specimen 03/20/2012 5:59 AM 012 6:05 (specimen) EDT AM EDT Resulting Agency Comment Spec In Lab S Eugenio Bustamante MD BLOOD BANK ORDERABLES Performing Organization Address City/[facility] [place] [address] CERNER MILLENNIUM APTT (03/20/2012 5:59 AM EDT) P athologist Signature PTT 28 25 - 35 [...] Bustamante MD HEMATOLOGY ORDERABLES Performing Organization Address City/[facility] Phon e Number [address] CERNER MILLENNIUM Prothrombin Time (03/20/2012 5:59 AM EDT) P athologist Signature PT 11.9 11.9 - 14.7 CERNER sec MILLENNIUM Comment: [facility] Transfusion Committee Guidelines: I NR less [...] Bustamante MD HEMATOLOGY ORDERABLES Performing Organization Address City/[facility]/ZIP [facility] [place] [address] CERNER MILLENNIUM Basic Metabolic Panel (non-fasting) (03/20/2012 5:59 AM EDT) athologist Signature Glucose Lvl 86 60 - 199 CERNER mg/dL MILLENNIUM Comment: Diabetes: >=200 mg/dL plus symp toms BUN 15 8 - 18 mg/dL CERNER MILLENNIUM Creatinine 0.73 0.70 - 1.20 mg/dL CERNER MILL ENNIUM Comment: Please note that the pediatric reference intervals supplied above were not validated at [facility]. Results from pediatri c patients should be [...] Organization Address City/State/[place] [address] CERNER MILLENNIUM (ABNORMAL) CBC (with Diff) (03/20/2012 5:59 AM EDT) P athologist Signature WBC 12.4 (H) 4.0 - 10.0 CERNER x10(3)/mcL MILLENNIUM RBC 4.69 3.93 - CERNER 5.22 MILLENNIUM x10(6)/mcL Hemoglobin 15.0 11.2 - CERNER 15.7 gm/dL MILLENNIUM Hematocrit 43.9 34.0 - CERNER 45.0 % MILLENNIUM MCV 93.6 79.0 - CERNER 94.0 fL MILLENNIUM MCH 32.0 26.6 - CERNER 32.2 pg MILLENNIUM MCHC 34.2 32.0 - CERNER 36.5 gm/dL MILLENNIUM Platelets 235 145 - 370 CERNER x10(3)/mcL [facility] RDWSD 46.1 (H) 35.0 - CERNER 46.0 fL [facility] RDWCV 13.5 10.9 - CERNER 14.4 % [facility] MPV 9.3 9.0 - 12.0 CERNER fL [facility] Specimen Anatomical Collection Method Collection Time Receive d Time (Source) Location / / Volume Laterality Blood specimen 03/20/2012 5:59 AM 012 6:08 (specimen) EDT AM EDT Resulting Agency Comment Spec In Lab S Eugenio Bustamante MD HEMATOLOGY ORDERABLES Performing Organization Address City/State/ZIP Code Phon e Number [place] [phone] [facility] documented in this encounter Visit Diagnoses Not on filedocumented in this encounter Administered Medications Inactive Administered Medications - up to 3 most recent administrations Medication Order MAR Action Action Date Dose Rate Site acetaminophen (TYLENOL) tablet Given 03/20/2012 11:05 AM EDT 1,0 00 mg 1,000 mg 1,000 mg, Oral, EVERY 6 HOURS, First dose on Sun03/20/12 at 1100, Until Discontinued, Maximum dose of acetaminophen is 4000 mg from all sources in 24 hours., Routine lactated ringers infusion 1,000 New Bag 03/20/2012 6:51 AM EDT 1,000 mLs 100 mL/hr mL 1,000 mL, at 100 mL/hr, Intravenous, CONTINUOUS, Starting on Sun03/20/12 at 0715, Until Sun03/20/12 at 1504, Day of Surgery (Day of Procedure) OXYcodone (ROXICODONE) immediate release Given 03/20/2012 11:05 AM EDT 10 mg tablet 5-10 mg 5-10 mg, Oral, EVERY 4 HOURS PRN, Starting on Sun03/20/12 at 1035, Until Sun03/20/12 at 1504, Pain, Routine documented in this encounter Active and Recently [...] - Provider: Jose Bustamante MD - Comment: 91171 units/ liter LR used thruout the case) [...] (Intra-Procedure) documented in this encounter Care Teams Marketing And Public Relations Manager Relationship Specialty Start Date End Date Kristin Wagner APRN PCP - General 08/02/10 documented as of this encounter
--- OUTSIDE RECORDS SUMMARY | 2022-03-17 00:29 | XMS_ITS | Encounter Summary ---
:1970 Author Organization [facility] Address [place] [id number] Care Team Providers Name Role Phone Kristin Wagner APRN Primary Care Provider [phone] Encounter Details Date Type Department Care Team Description 03/04/2012 Orders Only Neurosurgery at [facility] Jose Bustamante, Lumbar radiculopathy [facility] (Primary Dx) [place] [address] [place] [address] NEUR[address] DEPT[address] [place] [address] Social History Tobacco Use Types Packs/Day Years [...] Not on filedocumented as of this encounter Results MRI lumbar spine with/WO contrast (03/14/2012 2:54 PM EDT) Anatomical Region Laterality Modality L-spine Magnetic Resonance Specimen (Source) Anatomical Collection Method Collection Time Re ceived Time Location / / Volume Laterality 03/14/2012 2:54 PM EDT Narrative 03/14/2012 5:12 PM EDT Examination MR Lumbar Spine W/WO Randall Clinical History Recurrent pain after lumbar discectomy Comparison MRI 07/27/2011. Technique MRI of the lumbar spine performed prior to and following intravenous administration of 17 mL Magnevist. Findings The overall alignment of the lumbar spin e is normal. ??There are no aggressive osseous lesions. ??The normal-appearing conus terminates at the L1 level. ??The visualized retroperitoneum is normal. Findings a specific levels: L1-L2: ??No central canal or neural fora kathryn narrowing. ??No abnormal enhancement. L2-L3: ??No central canal or neural fora kathryn narrowing. ??No abnormal enhancement. L3-L4: ??No central canal or neural fora kathryn narrowing. ??New abnormal enhancement. L4-L5: ??There has been left-sided bianca otomy and partial discectomy. ??Small left paracentral and foraminal disc prot rusion is present, with enhancing granulation tissue in the region of the lateral recess and posterior lateral left epidural space. ??There is mild cau jayshree neural foraminal narrowing at this level. ?? L5-S1: ??There is loss of disc height. ? ?Left laminotomy changes are present. ??A rim enhancing T1 hypointense, T2 heterog eneous lesion extends posteriorly 2.5 cm from the disc space on the left. This effaces the lateral recess, contacts and distorts the traversing left S1 root . ??The lesion does not contact the exiting L5 root. Impression Postsurgical changes. ??At L5-S1 is a 2. 5 cm rim enhancing area of heterogeneous signal extends posteriorly from the disc . ??Differential for this appearance could include a disc extrusion and posto perative collection. The T2 hypointensity within collection could re present postoperative blood products. Procedure Note Edison Escudero MD - 03/14/2012Format ting of this note might be different from the original. Examination MR Lumbar Spine W/WO Randall Clinical History Recurrent pain after lumbar discectomy Comparison MRI 07/27/2011. Technique MRI of the lumbar spine performed prior to and following intravenous administration of 17 mL Magnevist. Findings The overall alignment of the lumbar spin e is normal. There are no aggressive osseous lesions. The normal-appearing co nus terminates at the L1 level. The visualized retroperitoneum is normal. Findings a specific levels: L1-L2: No central canal or neural forami nal narrowing. No abnormal enhancement. L2-L3: No central canal or neural forami nal narrowing. No abnormal enhancement. L3-L4: No central canal or neural forami nal narrowing. New abnormal enhancement. L4-L5: There has been left-sided laminot tyler and partial discectomy. Small left paracentral and foraminal disc prot rusion is present, with enhancing granulation tissue in the region of the lateral recess and posterior lateral left epidural space. There is mild cauda l neural foraminal narrowing at this level. L5-S1: There is loss of disc height. Lef t laminotomy changes are present. A rim enhancing T1 hypointense, T2 heterog eneous lesion extends posteriorly 2.5 cm from the disc space on the left. This effaces the lateral recess, contacts and distorts the traversing left S1 root . The lesion does not contact the exiting L5 root. Impression Postsurgical changes. At L5-S1 is a 2.5 cm rim enhancing area of heterogeneous signal extends posteriorly from the disc . Differential for this appearance could include a disc extrusion and posto perative collection. The T2 hypointensity within collection could re present postoperative blood products. S Eugenio Bustamante MD IMG MRI ORDERABLES documented in this encounter Visit Diagnoses Diagnosis Lumbar radiculopathy - Primary Thoracic or lumbosacral neuritis or radi culitis, unspecified Lumbar radiculopathy Thoracic or lumbosacral neuritis or radi culitis, unspecified documented in this encounter Care Teams Plant Operations Coordinator Relationship Specialty Start Date End Date Kristin Wagner, ADRIANNE PCP - General 08/02/10 documented as of this encounter
--- OUTSIDE RECORDS SUMMARY | 2022-03-17 00:29 | XMS_ITS | Encounter Summary ---
:1970 Author Organization [facility] Address [address] [place] [address] Care Team Providers Name Role Phone Unavailable Primary Care Provider Unavailable Encounter Details Date Type Department Care Team Description 06/23/2015 Results Only [facility]- Meghan Orr, CEMENT CAR DUMPER [phone] [address] [place], [place] [address] (Wo rk) Social History Tobacco Use Types Packs/Day Years Used Date Never Assessed Sex Assigned at Date Recorded Not on file documented as of this encounter Plan of Treatment Not on filedocumented as of this encounter Procedures Procedure Name Priority Date/Time Associated Diagnosis Comme nts PAP TEST- RESULT Routine 06/23/2015 0:00 EDT Resu lts for this ONLY procedure are i n the results section. documented in this encounter Results PAP TEST- RESULT ONLY (06/23/2015 0:00 EDT) Pathology Report: CYTOPATHOLOGY REPORT [facility] Reports generated via electronic interface contain josh ginal data; SERVICES however they are lacking the format of the original re port. Caution should be taken when reading/interpreting unfo rmatted reports. Name: ? KIMBERLEY CAMARENA ? Accession #: ? [id number] : ? 1970 (Age: [age]) ??F ?Collect Date: ? 06/10 Location: ? [facility] ? Receive Date : ? 06/25/2015 Provider: ?MEGHAN SOSA CEMENT CAR DUMPER Copy to: ? Specimen/Source: ? Pap Test, Cervix/Endocervix, ThinPrep Imaging System with manual evaluation Last Menstrual Period: ? SPECIMEN ADEQUACY ? Satisfactory for Evaluation - transformation zone component present GENERAL CATEGORIZATION ? Negative for Intraepithelial Lesion or Malignan cy INTERPRETATION ? Shift in lawrence present suggestive of bacterial vaginosis. ? Document reviewed and electronically signed by: ? DELICIA López(ASCP) ? Report Date: ??06/29/2015 10:46 End of Report Specimen Performing Organization Address City/State/ZIP Code Phon e Number [facility] [address] [place] [address] SERVICES documented in this encounter Visit Diagnoses Not on filedocumented in this encounter
--- OUTSIDE RECORDS SUMMARY | 2022-03-17 00:29 | XMS_ITS | Encounter Summary ---
:1970 Author Organization [facility] [place] [address] Care Team Providers Name Role Phone Kristin Wagner APRN Primary Care Provider [phone] Encounter Details Date Type Department Care Team Description 05/08/2012 Abstract Neurosurgery Jose Bustamante MD [facility] [place] [address] NEUROSURGERY DEPT. [phone] [place], [place] [address] ( rk) Social History Tobacco [...] on filedocumented in this encounter Care Teams Poiser Balance Relationship Specialty Start Date End Date Kristin Wagner APRN PCP - General 08/02/10 documented as of this encounter
--- OUTSIDE RECORDS SUMMARY | 2022-03-17 00:30 | XMS_ITS | Encounter Summary ---
:1970 Author Organization [facility] [place] [address] Care Team Providers Name Role Phone Kristin Wagner APRN Primary Care Provider [phone] Encounter Details Date Type Department Care Team Description 07/27/2011 Orders Only Neurosurgery at [facility] Jose Bustamante MD [facility] [place] [address] NEUROSURGERY DEPT. [phone] [place], [place] [address] (Wo rk) Social History Tobacco Use Types Packs/Day Years Used Date Never Assessed Sex Assigned at Date Recorded Not on file documented as of this encounter Plan of Treatment Not on filedocumented as of this encounter Procedures Procedure Name Priority Date/Time Associated Diagnosis Comme nts FILM LIBRARY Routine 07/27/2011 1:24 PM Results f or this STORAGE ONLY MR EST procedure ar e in SPINE the results section. documented in this encounter Results FILM LIBRARY- STORAGE ONLY MR SPINE (07/27/2011 1:24 PM EST) Specimen (Source) Anatomical Collection Method Collection Time Re ceived Time Location / / Volume Laterality 07/27/2011 1:24 PM EST Narrative RAD - 03/06/2014 1:30 AM EDT This is a non-reportable exam. Procedure Note Juan M Hill - 03/06/2014Formatting of t his note might be different from the original. This is a non-reportable exam. S Eugenio Bustamante MD [facility] FILM LIBRARY ORDERABLES Performing Organization Address City/State/ZIP Code Phon e Number [facility] [address] [place] [address] documented in this encounter Visit Diagnoses Not on filedocumented in this encounter Care Teams Transit Planning Manager Relationship Specialty Start Date End Date Kristin Wagner APRN PCP - General 08/02/10 documented as of this encounter
--- NOTE | 2022-03-17 09:30 | DI.MAMMO_ITS ---
Exam(s) MG MAMMO SCREEN CALL BACK UNI US BREAST LT COMPLETE EXAM: MG MAMMO SCREEN CALL BACK UNI CLINICAL HISTORY: F/U ABNL MAMMO, PLEOMORPHIC-APPEARING CALCIFICATIONS. TECHNIQUE: Craniocaudal and mediolateral oblique spot compression digital Mammography views as well as spot magnification views of the left breast with by Tomosynthesis and left breast ultrasound. COMPARISON: MG MG MAMMO SCREENING from 03/15/2022 US US BREAST LT COMPLETE from 03/17/2022 FINDINGS: Mammography/Tomosynthesis: Masses/Architectural Distortion: 9 millimeter circumscribed nodule question of additional adjacent no dule. Microcalcifictions: Innumerable pleomorphic-type calcifications are seen occupying nearly in the enti re the medial and inferior portions of the breast. Skin Thickening/Nipple Retraction: None. Left breast US: Shadowing: Multiple shadowing foci in the medial and inferior portions of the left breast. Foci. Cyst: 7 millimeter cyst 5 o'clock position 1 cm from the nipple. Clustered cysts at the 11 o'clock p osition 1 cm from the nipple measuring 1 cm in greatest dimension. A grouping of clustered microcysts are seen in the 1 o'clock position 1 cm from nipple, 6 millimeters in greatest dimension. Solid lesions: 1.5 x 0.6 x 0.7 centimeter hypoechoic mass with irregular borders and mild in internal vascularity located in the 7 o'clock position 1 cm from the nipple. An additional hypoechoic lesion measuring 6 x 4 x 3 millimeters is seen in the 3 o'clock position 1 cm from the nipple.. Ductal dilation: Mild ductal dilatation in the subareolar region. IMPRESSION: 1. 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 2. Additional 1.5 centimeter solid mass is demonstrated 7 o'clock position 1 cm from the nipple. 3. The findings were discussed with the patient on the date of the examination as well as called to Luz Maria Moran NP covering for Leroy Dangelo. BI-RADS Category 5 - Highly Suggestive of Malignancy: Biopsy recommended Breast Density - Category C - Heterogeneously dense
== END ==
PROVIDERS: PCP Nurse Practitioner Family; Visit Provider Nurse Practitioner Family
DX: Z12.31 Encounter for screening mammogram for malignant neoplasm of breast (principal); R92.1 Mammographic calcification found on diagnostic imaging of breast; N63.24 Unspecified lump in the left breast, lower inner quadrant
CPT/HCPCS: 76642; 77063; 77067

== ENCOUNTER 2022-08-04 00:56 | Outpatient (RCR) | payer MEDICAID, SELFPAY ==
[2022-07-20] MEDS: Normal Saline Flush 10 ML SYR IVP (07:21)
[2022-07-20 07:59] LABS: Abs Immature Grans 0.02 10^3/uL (0.0-0.06); Absolute Basophil Count 0.02 10^3/uL (0.0-0.2); Absolute Eosinophil Count 0.22 10^3/uL (0.0-0.7); Absolute Lymphocyte Count 1.78 10^3/uL (1.2-3.4); Absolute Monocyte Count 0.42 10^3/uL (0.1-0.8); Absolute Neutrophil Count 3.92 10^3/uL (1.2-6.7); Basophils % 0.3; Eosinophils % 3.4; HCT 42.4 % (36.0-46.0); HGB 14.1 g/dL (11.2-15.7); Immature Grans % 0.3; Lymphocytes % 27.9; MCH 31.8 pg (27.0-33.0); MCHC 33.3 % (32.0-36.0); MCV 96 fL (80-95); MPV 9.3 fL (8.0-11.0); Monocytes % 6.6; Neutrophils % 61.5; Platelet Count 300 10^3/uL (130-400); RBC 4.44 10^6/uL (3.93-5.22); RDW 12.3 % (11.7-14.6); RDW-SD 42.9 fL; WBC 6.38 10^3/uL (4.4-10.8)
[2022-07-20 08:30] LABS: ALT 24 U/L (14-59); AST 17 U/L (15-37); Albumin 3.5 g/dL (3.4-5.0); Alkaline Phosphatase 75 U/L (46-116); BUN 14 mg/dL (7-18); Bilirubin, Total 0.5 mg/dL (0.2-1.0); CREATININE 0.7 mg/dL (0.55-1.02); Calcium 8.7 mg/dL (8.5-10.1); Chloride 105 mmol/L (98-107); Glucose 117 mg/dL (74-106); Sodium 140 mmol/L (136-145); Total Protein 6.8 g/dL (6.4-8.2)
[2022-07-27] MEDS: Normal Saline Flush 10 ML SYR IVP (11:15)
[2022-07-27 11:16] LABS: Abs Immature Grans 0.02 10^3/uL (0.0-0.06); Absolute Basophil Count 0.03 10^3/uL (0.0-0.2); Absolute Eosinophil Count 0.13 10^3/uL (0.0-0.7); Absolute Lymphocyte Count 3.56 10^3/uL (1.2-3.4); Absolute Monocyte Count 0.31 10^3/uL (0.1-0.8); Absolute Neutrophil Count 3.55 10^3/uL (1.2-6.7); Basophils % 0.4; Eosinophils % 1.7; HCT 42.4 % (36.0-46.0); HGB 14.2 g/dL (11.2-15.7); Immature Grans % 0.3; Lymphocytes % 46.8; MCH 31.6 pg (27.0-33.0); MCHC 33.5 % (32.0-36.0); MCV 94 fL (80-95); MPV 8.9 fL (8.0-11.0); Monocytes % 4.1; Neutrophils % 46.7; Platelet Count 351 10^3/uL (130-400); RBC 4.49 10^6/uL (3.93-5.22); RDW 12.3 % (11.7-14.6); RDW-SD 42.9 fL
[2022-07-27 11:31] LABS: ALT 33 U/L (14-59); AST 18 U/L (15-37); Albumin 3.7 g/dL (3.4-5.0); Alkaline Phosphatase 76 U/L (46-116); Anion Gap 7.5 mmol/L (3-11); BUN 11 mg/dL (7-18); Bilirubin, Total 0.5 mg/dL (0.2-1.0); CO2 30.5 mmol/L (21.0-32.0); CREATININE 0.8 mg/dL (0.55-1.02); Calcium 8.7 mg/dL (8.5-10.1); Chloride 105 mmol/L (98-107); Estimated GFR 89.71 (mL/min/1.73m2); Glucose 109 mg/dL (74-106); Potassium 3.7 mmol/L (3.5-5.1); Sodium 143 mmol/L (136-145)
[2022-08-04] MEDS: Normal Saline Flush 10 ML SYR IVP (12:22)
[2022-08-04 12:28] LABS: Abs Immature Grans 0.02 10^3/uL (0.0-0.06); Absolute Basophil Count 0.04 10^3/uL (0.0-0.2); Absolute Lymphocyte Count 3.56 10^3/uL (1.2-3.4); Absolute Monocyte Count 0.54 10^3/uL (0.1-0.8); Absolute Neutrophil Count 3.73 10^3/uL (1.2-6.7); Basophils % 0.5; Eosinophils % 1.3; HCT 41.8 % (36.0-46.0); HGB 13.8 g/dL (11.2-15.7); Immature Grans % 0.3; Lymphocytes % 44.6; MCH 31.4 pg (27.0-33.0); MCV 95 fL (80-95); MPV 9.2 fL (8.0-11.0); Monocytes % 6.8; Neutrophils % 46.5; Platelet Count 310 10^3/uL (130-400); RDW 12.6 % (11.7-14.6); RDW-SD 43.6 fL; WBC 7.99 10^3/uL (4.4-10.8)
[2022-08-04 12:46] LABS: ALT 64 U/L (14-59); AST 32 U/L (15-37); Albumin 3.6 g/dL (3.4-5.0); Alkaline Phosphatase 76 U/L (46-116); Anion Gap 3.5 mmol/L (3-11); BUN 15 mg/dL (7-18); Bilirubin, Total 0.3 mg/dL (0.2-1.0); CO2 30.5 mmol/L (21.0-32.0); CREATININE 0.7 mg/dL (0.55-1.02); Chloride 104 mmol/L (98-107); Glucose 97 mg/dL (74-106); Potassium 3.9 mmol/L (3.5-5.1); Sodium 138 mmol/L (136-145); Total Protein 6.8 g/dL (6.4-8.2)
== END 2022-08-09 23:59 | disposition home or self-care (01) ==
LOC: INF 00:56
PROVIDERS: Nurse Practitioner Family; Visit Provider Internal Medicine Hematology & Oncology
DX: C50.412 Malignant neoplasm of upper-outer quadrant of left female breast (principal); Z17.0 Estrogen receptor positive status [ER+]; Z45.2 Encounter for adjustment and management of vascular access device
CPT/HCPCS: 36591; 80053; 85025

== ENCOUNTER 2022-09-07 01:53 | Outpatient (RCR) | payer MEDICAID, SELFPAY ==
[2022-08-10] MEDS: Normal Saline Flush 10 ML SYR IVP (08:17)
[2022-08-10 08:28] LABS: Abs Immature Grans 0.05 10^3/uL (0.0-0.06); Absolute Basophil Count 0.04 10^3/uL (0.0-0.2); Absolute Eosinophil Count 0.09 10^3/uL (0.0-0.7); Absolute Lymphocyte Count 2.88 10^3/uL (1.2-3.4); Absolute Monocyte Count 0.36 10^3/uL (0.1-0.8); Absolute Neutrophil Count 5.51 10^3/uL (1.2-6.7); Basophils % 0.4; HCT 42.6 % (36.0-46.0); HGB 14.2 g/dL (11.2-15.7); Immature Grans % 0.6; Lymphocytes % 32.3; MCH 31.6 pg (27.0-33.0); MCHC 33.3 % (32.0-36.0); MCV 95 fL (80-95); MPV 9.3 fL (8.0-11.0); Neutrophils % 61.7; Platelet Count 301 10^3/uL (130-400); RBC 4.49 10^6/uL (3.93-5.22); RDW-SD 45.2 fL; WBC 8.93 10^3/uL (4.4-10.8)
[2022-08-10 08:38] LABS: ALT 112 U/L (14-59); AST 54 U/L (15-37); Albumin 3.6 g/dL (3.4-5.0); Alkaline Phosphatase 78 U/L (46-116); Anion Gap 7.2 mmol/L (3-11); BUN 18 mg/dL (7-18); Bilirubin, Total 0.6 mg/dL (0.2-1.0); CO2 26.8 mmol/L (21.0-32.0); CREATININE 0.8 mg/dL (0.55-1.02); Calcium 8.6 mg/dL (8.5-10.1); Chloride 102 mmol/L (98-107); Estimated GFR 89.71 (mL/min/1.73m2); Glucose 103 mg/dL (74-106); Potassium 4.1 mmol/L (3.5-5.1); Sodium 136 mmol/L (136-145); Total Protein 6.9 g/dL (6.4-8.2)
[2022-08-17] MEDS: Normal Saline Flush 10 ML SYR IVP (08:19)
[2022-08-17 08:35] LABS: Abs Immature Grans 0.06 10^3/uL (0.0-0.06); Absolute Basophil Count 0.04 10^3/uL (0.0-0.2); Absolute Eosinophil Count 0.17 10^3/uL (0.0-0.7); Absolute Lymphocyte Count 2.66 10^3/uL (1.2-3.4); Absolute Monocyte Count 0.54 10^3/uL (0.1-0.8); Absolute Neutrophil Count 5.92 10^3/uL (1.2-6.7); Basophils % 0.4; Eosinophils % 1.8; Immature Grans % 0.6; Lymphocytes % 28.3; MCH 31.7 pg (27.0-33.0); MCHC 33.3 % (32.0-36.0); MCV 95 fL (80-95); MPV 9.1 fL (8.0-11.0); Monocytes % 5.8; Neutrophils % 63.1; Platelet Count 351 10^3/uL (130-400); RBC 4.41 10^6/uL (3.93-5.22); RDW 13.2 % (11.7-14.6); RDW-SD 46.3 fL; WBC 9.39 10^3/uL (4.4-10.8)
[2022-08-17 08:53] LABS: ALT 210 U/L (14-59); AST 77 U/L (15-37); Albumin 3.8 g/dL (3.4-5.0); Alkaline Phosphatase 76 U/L (46-116); BUN 13 mg/dL (7-18); Bilirubin, Total 0.5 mg/dL (0.2-1.0); CREATININE 0.8 mg/dL (0.55-1.02); Calcium 8.7 mg/dL (8.5-10.1); Chloride 103 mmol/L (98-107); Estimated GFR 89.71 (mL/min/1.73m2); Glucose 99 mg/dL (74-106); Potassium 3.9 mmol/L (3.5-5.1); Sodium 137 mmol/L (136-145); Total Protein 7.2 g/dL (6.4-8.2)
[2022-08-24] MEDS: Normal Saline Flush 10 ML SYR IVP (08:05)
[2022-08-24 08:16] LABS: Abs Immature Grans 0.05 10^3/uL (0.0-0.06); Absolute Basophil Count 0.03 10^3/uL (0.0-0.2); Absolute Eosinophil Count 0.11 10^3/uL (0.0-0.7); Absolute Lymphocyte Count 2.54 10^3/uL (1.2-3.4); Absolute Monocyte Count 0.48 10^3/uL (0.1-0.8); Absolute Neutrophil Count 5.53 10^3/uL (1.2-6.7); Basophils % 0.3; Eosinophils % 1.3; HCT 40.9 % (36.0-46.0); HGB 13.5 g/dL (11.2-15.7); Immature Grans % 0.6; Lymphocytes % 29.1; MCV 97 fL (80-95); MPV 9.1 fL (8.0-11.0); Monocytes % 5.5; Neutrophils % 63.2; Platelet Count 330 10^3/uL (130-400); RBC 4.22 10^6/uL (3.93-5.22); RDW 13.4 % (11.7-14.6); RDW-SD 47.8 fL; WBC 8.74 10^3/uL (4.4-10.8)
[2022-08-24 08:33] LABS: ALT 132 U/L (14-59); AST 48 U/L (15-37); Albumin 3.6 g/dL (3.4-5.0); Alkaline Phosphatase 74 U/L (46-116); Anion Gap 8.9 mmol/L (3-11); BUN 16 mg/dL (7-18); Bilirubin, Total 0.4 mg/dL (0.2-1.0); CO2 25.1 mmol/L (21.0-32.0); CREATININE 0.7 mg/dL (0.55-1.02); Calcium 8.6 mg/dL (8.5-10.1); Chloride 104 mmol/L (98-107); Glucose 101 mg/dL (74-106); Potassium 4.1 mmol/L (3.5-5.1); Sodium 138 mmol/L (136-145); Total Protein 6.7 g/dL (6.4-8.2)
[2022-08-31] MEDS: Normal Saline Flush 10 ML SYR IVP (08:03)
[2022-08-31 08:10] LABS: Abs Immature Grans 0.07 10^3/uL (0.0-0.06); Absolute Basophil Count 0.04 10^3/uL (0.0-0.2); Absolute Eosinophil Count 0.14 10^3/uL (0.0-0.7); Absolute Lymphocyte Count 2.56 10^3/uL (1.2-3.4); Absolute Monocyte Count 0.51 10^3/uL (0.1-0.8); Absolute Neutrophil Count 5.09 10^3/uL (1.2-6.7); Basophils % 0.5; Eosinophils % 1.7; HCT 41.6 % (36.0-46.0); HGB 13.6 g/dL (11.2-15.7); Immature Grans % 0.8; Lymphocytes % 30.4; MCH 31.4 pg (27.0-33.0); MCHC 32.7 % (32.0-36.0); MCV 96 fL (80-95); Monocytes % 6.1; Neutrophils % 60.5; Platelet Count 323 10^3/uL (130-400); RBC 4.33 10^6/uL (3.93-5.22); RDW 13.5 % (11.7-14.6); WBC 8.41 10^3/uL (4.4-10.8)
[2022-08-31 08:25] LABS: ALT 109 U/L (14-59); AST 44 U/L (15-37); Albumin 3.6 g/dL (3.4-5.0); Alkaline Phosphatase 71 U/L (46-116); Anion Gap 7.7 mmol/L (3-11); BUN 19 mg/dL (7-18); Bilirubin, Total 0.4 mg/dL (0.2-1.0); CO2 27.3 mmol/L (21.0-32.0); CREATININE 0.7 mg/dL (0.55-1.02); Calcium 8.6 mg/dL (8.5-10.1); Chloride 105 mmol/L (98-107); Glucose 100 mg/dL (74-106); Potassium 4.4 mmol/L (3.5-5.1); Sodium 140 mmol/L (136-145); Total Protein 6.8 g/dL (6.4-8.2)
[2022-09-07] MEDS: Normal Saline Flush 10 ML SYR IVP (08:15)
[2022-09-07 08:34] LABS: Abs Immature Grans 0.04 10^3/uL (0.0-0.06); Absolute Basophil Count 0.02 10^3/uL (0.0-0.2); Absolute Eosinophil Count 0.15 10^3/uL (0.0-0.7); Absolute Lymphocyte Count 2.48 10^3/uL (1.2-3.4); Absolute Monocyte Count 0.54 10^3/uL (0.1-0.8); Absolute Neutrophil Count 5.88 10^3/uL (1.2-6.7); Basophils % 0.2; Eosinophils % 1.6; HCT 41.2 % (36.0-46.0); HGB 13.8 g/dL (11.2-15.7); Immature Grans % 0.4; Lymphocytes % 27.2; MCH 31.9 pg (27.0-33.0); MCHC 33.5 % (32.0-36.0); MCV 95 fL (80-95); MPV 9.3 fL (8.0-11.0); Monocytes % 5.9; Neutrophils % 64.7; Platelet Count 313 10^3/uL (130-400); RBC 4.32 10^6/uL (3.93-5.22); RDW 13.5 % (11.7-14.6); RDW-SD 47.4 fL; WBC 9.11 10^3/uL (4.4-10.8)
[2022-09-07 08:50] LABS: ALT 99 U/L (14-59); AST 37 U/L (15-37); Albumin 3.6 g/dL (3.4-5.0); Alkaline Phosphatase 74 U/L (46-116); Anion Gap 7.6 mmol/L (3-11); BUN 18 mg/dL (7-18); Bilirubin, Total 0.5 mg/dL (0.2-1.0); CO2 26.4 mmol/L (21.0-32.0); CREATININE 0.8 mg/dL (0.55-1.02); Calcium 8.5 mg/dL (8.5-10.1); Chloride 105 mmol/L (98-107); Estimated GFR 89.71 (mL/min/1.73m2); Glucose 98 mg/dL (74-106); Potassium 4.1 mmol/L (3.5-5.1); Sodium 139 mmol/L (136-145); Total Protein 6.9 g/dL (6.4-8.2)
== END 2022-09-09 23:59 | disposition home or self-care (01) ==
LOC: INF 01:53
PROVIDERS: Nurse Practitioner Family; Visit Provider Internal Medicine Hematology & Oncology
DX: C50.412 Malignant neoplasm of upper-outer quadrant of left female breast (principal); Z17.0 Estrogen receptor positive status [ER+]; Z45.2 Encounter for adjustment and management of vascular access device
CPT/HCPCS: 36591; 80053; 85025

== ENCOUNTER 2022-10-05 10:30 | Outpatient (RCR) | payer MEDICAID, SELFPAY ==
[2022-09-14] MEDS: Normal Saline Flush 10 ML SYR IVP (08:23)
[2022-09-14 08:43] LABS: Abs Immature Grans 0.03 10^3/uL (0.0-0.06); Absolute Basophil Count 0.03 10^3/uL (0.0-0.2); Absolute Eosinophil Count 0.16 10^3/uL (0.0-0.7); Absolute Monocyte Count 0.46 10^3/uL (0.1-0.8); Absolute Neutrophil Count 3.52 10^3/uL (1.2-6.7); Basophils % 0.4; Eosinophils % 2.3; HCT 39.5 % (36.0-46.0); Immature Grans % 0.4; MCH 31.6 pg (27.0-33.0); MCHC 32.9 % (32.0-36.0); MCV 96 fL (80-95); MPV 9.3 fL (8.0-11.0); Monocytes % 6.6; Neutrophils % 50.3; Platelet Count 315 10^3/uL (130-400); RBC 4.12 10^6/uL (3.93-5.22); RDW 13.9 % (11.7-14.6); RDW-SD 49.1 fL
[2022-09-14 09:03] LABS: ALT 80 U/L (14-59); AST 38 U/L (15-37); Albumin 3.5 g/dL (3.4-5.0); Alkaline Phosphatase 69 U/L (46-116); Anion Gap 7.2 mmol/L (3-11); BUN 17 mg/dL (7-18); Bilirubin, Total 0.5 mg/dL (0.2-1.0); CO2 27.8 mmol/L (21.0-32.0); CREATININE 0.7 mg/dL (0.55-1.02); Calcium 8.5 mg/dL (8.5-10.1); Chloride 105 mmol/L (98-107); Glucose 92 mg/dL (74-106); Potassium 3.7 mmol/L (3.5-5.1); Sodium 140 mmol/L (136-145); Total Protein 6.5 g/dL (6.4-8.2)
[2022-09-14 20:26] LABS: FSH 94.8 mIU/mL (See Note)
[2022-09-21 10:33] LABS: AST 40 U/L (15-37); Albumin 3.7 g/dL (3.4-5.0); Alkaline Phosphatase 71 U/L (46-116); Anion Gap 6.3 mmol/L (3-11); BUN 20 mg/dL (7-18); Bilirubin, Total 0.6 mg/dL (0.2-1.0); CO2 26.7 mmol/L (21.0-32.0); CREATININE 0.8 mg/dL (0.55-1.02); Calcium 8.9 mg/dL (8.5-10.1); Chloride 104 mmol/L (98-107); Estimated GFR 89.71 (mL/min/1.73m2); Glucose 101 mg/dL (74-106); Sodium 137 mmol/L (136-145)
[2022-09-21 10:34] LABS: ALT 104 U/L (14-59); Abs Immature Grans 0.06 10^3/uL (0.0-0.06); Absolute Basophil Count 0.04 10^3/uL (0.0-0.2); Absolute Eosinophil Count 0.14 10^3/uL (0.0-0.7); Absolute Lymphocyte Count 2.86 10^3/uL (1.2-3.4); Absolute Monocyte Count 0.44 10^3/uL (0.1-0.8); Absolute Neutrophil Count 3.93 10^3/uL (1.2-6.7); Basophils % 0.5; Eosinophils % 1.9; HCT 40.7 % (36.0-46.0); HGB 13.7 g/dL (11.2-15.7); Immature Grans % 0.8; Lymphocytes % 38.3; MCH 31.9 pg (27.0-33.0); MCHC 33.7 % (32.0-36.0); MCV 95 fL (80-95); MPV 9.3 fL (8.0-11.0); Monocytes % 5.9; Neutrophils % 52.6; Platelet Count 332 10^3/uL (130-400); RDW 14.3 % (11.7-14.6); RDW-SD 49.6 fL; WBC 7.47 10^3/uL (4.4-10.8)
[2022-09-28 08:22] LABS: Abs Immature Grans 0.04 10^3/uL (0.0-0.06); Absolute Basophil Count 0.05 10^3/uL (0.0-0.2); Absolute Eosinophil Count 0.14 10^3/uL (0.0-0.7); Absolute Lymphocyte Count 2.55 10^3/uL (1.2-3.4); Absolute Monocyte Count 0.53 10^3/uL (0.1-0.8); Absolute Neutrophil Count 4.65 10^3/uL (1.2-6.7); Basophils % 0.6; Eosinophils % 1.8; HCT 41.9 % (36.0-46.0); HGB 14.4 g/dL (11.2-15.7); Immature Grans % 0.5; MCH 32.2 pg (27.0-33.0); MCHC 34.4 % (32.0-36.0); MCV 94 fL (80-95); MPV 9.1 fL (8.0-11.0); Monocytes % 6.7; Neutrophils % 58.4; Platelet Count 339 10^3/uL (130-400); RBC 4.47 10^6/uL (3.93-5.22); RDW 14.6 % (11.7-14.6); RDW-SD 49.9 fL; WBC 7.96 10^3/uL (4.4-10.8)
[2022-09-28 08:40] LABS: ALT 103 U/L (14-59); AST 43 U/L (15-37); Albumin 3.8 g/dL (3.4-5.0); Alkaline Phosphatase 73 U/L (46-116); BUN 16 mg/dL (7-18); Bilirubin, Total 0.7 mg/dL (0.2-1.0); CREATININE 0.8 mg/dL (0.55-1.02); Calcium 8.9 mg/dL (8.5-10.1); Chloride 106 mmol/L (98-107); Estimated GFR 89.71 (mL/min/1.73m2); Glucose 101 mg/dL (74-106); Potassium 4.2 mmol/L (3.5-5.1); Sodium 138 mmol/L (136-145); Total Protein 7.1 g/dL (6.4-8.2)
[2022-10-05 10:48] LABS: Abs Immature Grans 0.05 10^3/uL (0.0-0.06); Absolute Basophil Count 0.04 10^3/uL (0.0-0.2); Absolute Eosinophil Count 0.15 10^3/uL (0.0-0.7); Absolute Lymphocyte Count 2.63 10^3/uL (1.2-3.4); Absolute Monocyte Count 0.45 10^3/uL (0.1-0.8); Absolute Neutrophil Count 2.93 10^3/uL (1.2-6.7); Basophils % 0.6; Eosinophils % 2.4; HCT 38.3 % (36.0-46.0); HGB 12.9 g/dL (11.2-15.7); Immature Grans % 0.8; Lymphocytes % 42.1; MCH 32.6 pg (27.0-33.0); MCHC 33.7 % (32.0-36.0); MCV 97 fL (80-95); MPV 8.9 fL (8.0-11.0); Monocytes % 7.2; Neutrophils % 46.9; Platelet Count 242 10^3/uL (130-400); RBC 3.96 10^6/uL (3.93-5.22); RDW-SD 53.7 fL; WBC 6.25 10^3/uL (4.4-10.8)
[2022-10-05] MEDS: Normal Saline Flush 10 ML SYR IVP (10:51)
[2022-10-05 11:17] LABS: ALT 78 U/L (14-59); AST 36 U/L (15-37); Albumin 3.6 g/dL (3.4-5.0); Alkaline Phosphatase 66 U/L (46-116); Anion Gap 8.9 mmol/L (3-11); BUN 20 mg/dL (7-18); Bilirubin, Total 0.4 mg/dL (0.2-1.0); CO2 25.1 mmol/L (21.0-32.0); CREATININE 0.7 mg/dL (0.55-1.02); Calcium 8.9 mg/dL (8.5-10.1); Chloride 105 mmol/L (98-107); Glucose 93 mg/dL (74-106); Potassium 4.1 mmol/L (3.5-5.1); Sodium 139 mmol/L (136-145); Total Protein 6.3 g/dL (6.4-8.2)
== END 2022-10-10 23:59 | disposition home or self-care (01) ==
LOC: INF 10:30
PROVIDERS: Nurse Practitioner Family; Visit Provider Internal Medicine Hematology & Oncology
DX: C50.412 Malignant neoplasm of upper-outer quadrant of left female breast (principal); Z17.0 Estrogen receptor positive status [ER+]
CPT/HCPCS: 36415; 36591; 80053; 83001; 85025

== ENCOUNTER 2022-10-26 11:28 | Outpatient (RCR) | payer MEDICAID, SELFPAY ==
[2022-10-26 10:19] LABS: Abs Immature Grans 0.03 10^3/uL (0.0-0.06); Absolute Basophil Count 0.04 10^3/uL (0.0-0.2); Absolute Eosinophil Count 0.23 10^3/uL (0.0-0.7); Absolute Lymphocyte Count 2.89 10^3/uL (1.2-3.4); Absolute Monocyte Count 0.55 10^3/uL (0.1-0.8); Absolute Neutrophil Count 5.93 10^3/uL (1.2-6.7); Basophils % 0.4; Eosinophils % 2.4; HCT 44.2 % (36.0-46.0); HGB 14.9 g/dL (11.2-15.7); Immature Grans % 0.3; Lymphocytes % 29.9; MCHC 33.7 % (32.0-36.0); MCV 95 fL (80-95); MPV 9.3 fL (8.0-11.0); Monocytes % 5.7; Neutrophils % 61.3; Platelet Count 253 10^3/uL (130-400); RBC 4.66 10^6/uL (3.93-5.22); RDW 13.7 % (11.7-14.6); RDW-SD 48.1 fL; WBC 9.67 10^3/uL (4.4-10.8)
[2022-10-26 10:33] LABS: ALT 36 U/L (14-59); AST 23 U/L (15-37); Albumin 3.9 g/dL (3.4-5.0); Alkaline Phosphatase 75 U/L (46-116); Anion Gap 7.8 mmol/L (3-11); BUN 13 mg/dL (7-18); Bilirubin, Total 1.1 mg/dL (0.2-1.0); CO2 27.2 mmol/L (21.0-32.0); CREATININE 0.7 mg/dL (0.55-1.02); Calcium 9.4 mg/dL (8.5-10.1); Chloride 104 mmol/L (98-107); Glucose 108 mg/dL (74-106); Potassium 4.1 mmol/L (3.5-5.1); Sodium 139 mmol/L (136-145); Total Protein 6.9 g/dL (6.4-8.2)
[2022-10-26] MEDS: Normal Saline Flush 10 ML SYR IVP (11:57)
== END 2022-11-07 23:59 | disposition home or self-care (01) ==
LOC: INF 11:28
PROVIDERS: Nurse Practitioner Family; Visit Provider Internal Medicine Hematology & Oncology
DX: Z45.2 Encounter for adjustment and management of vascular access device (principal); C50.412 Malignant neoplasm of upper-outer quadrant of left female breast; Z17.0 Estrogen receptor positive status [ER+]
CPT/HCPCS: 36591; 80053; 85025

== ENCOUNTER 2022-11-02 09:05 | Outpatient (CLI) | payer MEDICAID, SELFPAY ==
--- NOTE | 2022-11-02 | DI.US_ITS ---
APPROVED REPORT EXAM: Comprehensive 2D, Doppler, and color-flow Echocardiogram Patient Location: Out-Patient Main Line Assembler: Pily Whyte RDCS (AE) Indications: Left breast Cancer, Other Information Study Quality: Adequate. Technically limited study due to body habitus. Conclusion Left ventricular wall thickness and chamber size. Estimated ejection fraction is 55 to 60%. Wall mo tion is normal Normal right ventricular size and systolic function Atria are normal in size There is no structural or hemodynamically significant valvular disease Estimated right ventricular systolic pressure is 24 mmHg Wall motion Left Ventricle The left ventricle is normal size. The overall left ventricular systolic function appears normal. The re is normal left ventricular wall thickness. There is normal LV segmental wall motion. There is no v entricular septal defect visualized. LVEF is 58%. Right Ventricle Right ventricle is grossly normal in size. Right ventricular systolic function is grossly normal. The RVSP is 24.0_ mmHg. Atria The left atrium size is normal. The right atrium size is normal. The interatrial septum is intact wit h no evidence for an atrial septal defect. Aortic Valve The aortic valve is normal in structure. Aortic valve is trileaflet. There is no aortic valvular sten osis. No aortic regurgitation is present. Mitral Valve The mitral valve is normal in structure. No evidence of mitral valve stenosis. Trace mitral regurgita tion. Tricuspid Valve The tricuspid valve is normal in structure. There is no tricuspid valve stenosis. Trace to mild tricu spid regurgitation. Pulmonic Valve The pulmonary valve is normal in structure. There is no pulmonic valvular stenosis. There is no pulmo yi valvular regurgitation. Great Vessels The aortic root is normal in size. The ascending aorta is normal in size. Aortic arch is normal in ca liber. IVC is normal in size and collapses >50% with inspiration. Pericardium There is no pericardial effusion. 2D Dimensions IVSD d PLAX 0.85 cm F: 0.6-1.0 LV Vol A4C d MOD 100.5 mL LVPW d PLAX 0.83 cm F: 0.6 - 1.0 LV EF A4C MOD 55.4 % LVID d PLAX 4.78 cm F: 3.8 - 5.2 LVDs 3.30 cm F: 2.2 - 3.5 Ao Root d 3.30 cm F: 2.7 - 3.3 RA Area A4C 12.85 cm2 RA Vol/ BSA A4C s A-L 15.1 mL/m2 Ao Asc Diam d 3.25 cm F: 2.3 - 3.1 LV EF Teichholz 58.2 % LV Volume Index 50.48 mL/m2 F: 29 - 61 FS 30.70 % LV Diastology E/A Ratio 0.9 MV E Vmax 0.62 (0.4-1.3 m/s) MV A Vmax 0.70 (0.4-1.3 m/s) MV E/A Ratio 0.86 Aortic Valve LVOT Area 3.34 cm2 AoV Area Vmax 2.11 cm2 LVOT Vmax 0.63 m/s AoV Area/ BSA (Vmax) 1.06 cm2/m2 LVOT Mean Jordan. 0.46 m/s MARIZTA Mean Jordan. 2.10 cm2 LVOT Peak Grad 1.6 mmHg MARITZA Mean Jordan. Index 1.06 cm2/m2 LVOT Mean Grad 1.0 mmHg LVOT VTI 0.139 m LVOT Diam s 2.05 cm AoV Vmax 1.00 m/s Velocity Ratio 0.63 AoV Mean Jordan. 0.73 m/s AoV Peak Grad 4.0 mmHg LVOT SV 46.57 mL AoV Mean Grad 2.3 mmHg AoV VTI 0.206 m AoV Area VTI 2.26 cm2 AoV Area/ BSA (VTI) 1.14 cm/m2 Mitral Valve MV DT 202 (160-240 msec) MV PHT 58 msec MV Area PHT 3.76 cm2 MV VTI 0.231 m MV Area VTI 2.02 (4.0-6.0 cm2) Pulmonary Valve PV Vmax 0.78 (0.5-1.5 m/s) RVOT Peak Gr. 1.44 mmHg PV Peak Grad 2.4 mmHg RVOT Mean Gr. 0.75 mmHg PV Mean Grad 1.3 mmHg RVOT VTI 0.130 m PV VTI 0.171 m RVOT Vmax 0.60 m/s Tricuspid Valve TR Peak Grad 20.9 mmHg TR Vmax 2.29 m/s RA Pressure 3.00 mmHg RVSP (TR) 24.0 mmHg
== END 2022-11-02 09:25 ==
LOC: DI 09:06
PROVIDERS: Visit Provider Internal Medicine Hematology & Oncology
DX: C50.912 Malignant neoplasm of unspecified site of left female breast (principal)
CPT/HCPCS: 93306

== ENCOUNTER 2022-12-01 01:34 | Outpatient (CLI) | payer MEDICAID, SELFPAY ==
--- NOTE | 2022-12-01 11:00 | DI.DEXA_ITS ---
Exam(s) XR DEXA BONE DENSITY W/WO GRACIELA EXAM: XR DEXA BONE DENSITY W/WO GRACIELA CLINICAL HISTORY: BREAST CANCER, C50.412, Z17.0 TECHNIQUE: COMPARISON: No exams were available for comparison FINDINGS: Lateral Spine Image: Unremarkable. No compression deformities identified. Left hip: Total T-Score: 0.0 Total Z-Score: 0.5 T- and Z-scores: Within normal limits. Lumbar Spine: Total T-Score: 0.5 Total Z-Score: 1.3 T- and Z-scores: Within normal limits. IMPRESSION: No evidence of osteoporosis.
== END 2022-12-01 01:54 ==
LOC: DI 01:34
PROVIDERS: Visit Provider Nurse Practitioner Family
DX: C50.412 Malignant neoplasm of upper-outer quadrant of left female breast (principal); Z17.0 Estrogen receptor positive status [ER+]; Z13.820 Encounter for screening for osteoporosis
CPT/HCPCS: 77080

== ENCOUNTER 2022-12-07 02:09 | Outpatient (RCR) | payer MEDICAID, SELFPAY ==
[2022-11-16] MEDS: Normal Saline Flush 10 ML SYR IVP (10:17)
[2022-11-16 10:25] LABS: Abs Immature Grans 0.02 10^3/uL (0.0-0.06); Absolute Basophil Count 0.04 10^3/uL (0.0-0.2); Absolute Eosinophil Count 0.23 10^3/uL (0.0-0.7); Absolute Lymphocyte Count 3.41 10^3/uL (1.2-3.4); Absolute Monocyte Count 0.56 10^3/uL (0.1-0.8); Absolute Neutrophil Count 5.14 10^3/uL (1.2-6.7); Basophils % 0.4; Eosinophils % 2.4; HCT 45.8 % (36.0-46.0); HGB 15.6 g/dL (11.2-15.7); Immature Grans % 0.2; Lymphocytes % 36.3; MCH 32.3 pg (27.0-33.0); MCHC 34.1 % (32.0-36.0); MCV 95 fL (80-95); Neutrophils % 54.7; Platelet Count 273 10^3/uL (130-400); RBC 4.83 10^6/uL (3.93-5.22); RDW 12.7 % (11.7-14.6); RDW-SD 44.6 fL
[2022-11-16 10:40] LABS: ALT 43 U/L (14-59); AST 26 U/L (15-37); Albumin 3.8 g/dL (3.4-5.0); Alkaline Phosphatase 85 U/L (46-116); Anion Gap 8.7 mmol/L (3-11); BUN 11 mg/dL (7-18); CO2 28.3 mmol/L (21.0-32.0); CREATININE 0.7 mg/dL (0.55-1.02); Calcium 9.3 mg/dL (8.5-10.1); Chloride 105 mmol/L (98-107); Glucose 106 mg/dL (74-106); Sodium 142 mmol/L (136-145)
[2022-12-07] MEDS: Normal Saline Flush 10 ML SYR IVP (07:46)
[2022-12-07 08:02] LABS: Abs Immature Grans 0.02 10^3/uL (0.0-0.06); Absolute Basophil Count 0.02 10^3/uL (0.0-0.2); Absolute Eosinophil Count 0.24 10^3/uL (0.0-0.7); Absolute Lymphocyte Count 3.23 10^3/uL (1.2-3.4); Absolute Monocyte Count 0.65 10^3/uL (0.1-0.8); Absolute Neutrophil Count 3.38 10^3/uL (1.2-6.7); Basophils % 0.3; Eosinophils % 3.2; HCT 44.3 % (36.0-46.0); HGB 14.7 g/dL (11.2-15.7); Immature Grans % 0.3; Lymphocytes % 42.8; MCH 31.7 pg (27.0-33.0); MCHC 33.2 % (32.0-36.0); MCV 96 fL (80-95); MPV 9.2 fL (8.0-11.0); Monocytes % 8.6; Neutrophils % 44.8; Platelet Count 247 10^3/uL (130-400); RBC 4.64 10^6/uL (3.93-5.22); RDW-SD 42.4 fL; WBC 7.54 10^3/uL (4.4-10.8)
[2022-12-07 08:17] LABS: ALT 29 U/L (14-59); AST 18 U/L (15-37); Albumin 3.3 g/dL (3.4-5.0); Alkaline Phosphatase 69 U/L (46-116); Anion Gap 6.7 mmol/L (3-11); BUN 17 mg/dL (7-18); Bilirubin, Total 0.6 mg/dL (0.2-1.0); CO2 28.3 mmol/L (21.0-32.0); CREATININE 0.8 mg/dL (0.55-1.02); Calcium 8.6 mg/dL (8.5-10.1); Chloride 107 mmol/L (98-107); Estimated GFR 89.15 (mL/min/1.73m2); Glucose 101 mg/dL (74-106); Potassium 4.2 mmol/L (3.5-5.1); Sodium 142 mmol/L (136-145); Total Protein 6.3 g/dL (6.4-8.2)
== END 2022-12-08 23:59 | disposition home or self-care (01) ==
LOC: INF 02:09
PROVIDERS: Nurse Practitioner Family; Visit Provider Internal Medicine Hematology & Oncology
DX: Z45.2 Encounter for adjustment and management of vascular access device (principal); C50.412 Malignant neoplasm of upper-outer quadrant of left female breast; Z17.0 Estrogen receptor positive status [ER+]
CPT/HCPCS: 36591; 80053; 85025

== ENCOUNTER 2022-12-28 03:21 | Outpatient (RCR) | payer MEDICAID, SELFPAY ==
[2022-12-28] MEDS: Normal Saline Flush 10 ML SYR IVP (10:12)
[2022-12-28 10:19] LABS: Abs Immature Grans 0.03 10^3/uL (0.0-0.06); Absolute Basophil Count 0.04 10^3/uL (0.0-0.2); Absolute Eosinophil Count 0.22 10^3/uL (0.0-0.7); Absolute Monocyte Count 0.59 10^3/uL (0.1-0.8); Absolute Neutrophil Count 6.15 10^3/uL (1.2-6.7); Basophils % 0.4; Eosinophils % 2.2; HCT 47.1 % (36.0-46.0); HGB 16.1 g/dL (11.2-15.7); Immature Grans % 0.3; Lymphocytes % 30.6; MCH 31.6 pg (27.0-33.0); MCHC 34.2 % (32.0-36.0); MCV 92 fL (80-95); MPV 9.4 fL (8.0-11.0); Monocytes % 5.8; Neutrophils % 60.7; Platelet Count 247 10^3/uL (130-400); RDW 11.9 % (11.7-14.6); RDW-SD 40.6 fL; WBC 10.13 10^3/uL (4.4-10.8)
[2022-12-28 10:35] LABS: ALT 31 U/L (14-59); AST 18 U/L (15-37); Albumin 3.9 g/dL (3.4-5.0); Alkaline Phosphatase 81 U/L (46-116); Anion Gap 8.3 mmol/L (3-11); BUN 14 mg/dL (7-18); Bilirubin, Total 0.8 mg/dL (0.2-1.0); CO2 27.7 mmol/L (21.0-32.0); CREATININE 0.8 mg/dL (0.55-1.02); Calcium 9.2 mg/dL (8.5-10.1); Chloride 104 mmol/L (98-107); Estimated GFR 89.15 (mL/min/1.73m2); Glucose 102 mg/dL (74-106); Potassium 4.1 mmol/L (3.5-5.1); Sodium 140 mmol/L (136-145); Total Protein 7.3 g/dL (6.4-8.2)
== END 2023-01-07 23:59 | disposition home or self-care (01) ==
LOC: INF 03:21
PROVIDERS: Nurse Practitioner Family; Visit Provider Internal Medicine Hematology & Oncology
DX: Z45.2 Encounter for adjustment and management of vascular access device (principal); C50.412 Malignant neoplasm of upper-outer quadrant of left female breast; Z17.0 Estrogen receptor positive status [ER+]
CPT/HCPCS: 36591; 80053; 85025

== ENCOUNTER 2023-01-18 02:19 | Outpatient (RCR) | payer MEDICAID, SELFPAY ==
[2023-01-18] MEDS: Normal Saline Flush 10 ML SYR IVP (09:25)
[2023-01-18 09:45] LABS: Abs Immature Grans 0.02 10^3/uL (0.0-0.06); Absolute Basophil Count 0.04 10^3/uL (0.0-0.2); Absolute Lymphocyte Count 2.94 10^3/uL (1.2-3.4); Absolute Monocyte Count 0.52 10^3/uL (0.1-0.8); Absolute Neutrophil Count 4.03 10^3/uL (1.2-6.7); Basophils % 0.5; Eosinophils % 2.6; HCT 46.9 % (36.0-46.0); HGB 15.8 g/dL (11.2-15.7); Immature Grans % 0.3; Lymphocytes % 37.9; MCH 30.9 pg (27.0-33.0); MCHC 33.7 % (32.0-36.0); MCV 92 fL (80-95); MPV 9.3 fL (8.0-11.0); Monocytes % 6.7; Platelet Count 239 10^3/uL (130-400); RBC 5.11 10^6/uL (3.93-5.22); RDW 12.1 % (11.7-14.6); RDW-SD 41.2 fL; WBC 7.75 10^3/uL (4.4-10.8)
[2023-01-18 10:04] LABS: ALT 29 U/L (14-59); AST 19 U/L (15-37); Albumin 3.7 g/dL (3.4-5.0); Alkaline Phosphatase 75 U/L (46-116); Anion Gap 9.3 mmol/L (3-11); BUN 20 mg/dL (7-18); Bilirubin, Total 0.3 mg/dL (0.2-1.0); CO2 26.7 mmol/L (21.0-32.0); CREATININE 0.7 mg/dL (0.55-1.02); Calcium 9.1 mg/dL (8.5-10.1); Chloride 106 mmol/L (98-107); Estimated GFR 104.65 (mL/min/1.73m2); Glucose 103 mg/dL (74-106); Potassium 4.4 mmol/L (3.5-5.1); Sodium 142 mmol/L (136-145); Total Protein 7.2 g/dL (6.4-8.2)
== END 2023-02-07 23:59 | disposition home or self-care (01) ==
LOC: INF 02:19
PROVIDERS: Visit Provider Internal Medicine Hematology & Oncology
DX: Z45.2 Encounter for adjustment and management of vascular access device (principal); C50.412 Malignant neoplasm of upper-outer quadrant of left female breast; Z17.0 Estrogen receptor positive status [ER+]
CPT/HCPCS: 36591; 80053; 85025

== ENCOUNTER 2023-03-01 01:43 | Outpatient (RCR) | payer MEDICAID, SELFPAY ==
[2023-02-08] MEDS: Normal Saline Flush 10 ML SYR IVP (10:50)
[2023-02-08 11:26] LABS: Abs Immature Grans 0.04 10^3/uL (0.0-0.06); Absolute Basophil Count 0.05 10^3/uL (0.0-0.2); Absolute Eosinophil Count 0.13 10^3/uL (0.0-0.7); Absolute Lymphocyte Count 2.82 10^3/uL (1.2-3.4); Absolute Monocyte Count 0.49 10^3/uL (0.1-0.8); Absolute Neutrophil Count 7.85 10^3/uL (1.2-6.7); Basophils % 0.4; Eosinophils % 1.1; HCT 46.4 % (36.0-46.0); Immature Grans % 0.4; Lymphocytes % 24.8; MCHC 34.5 % (32.0-36.0); MCV 90 fL (80-95); MPV 9.3 fL (8.0-11.0); Monocytes % 4.3; Platelet Count 271 10^3/uL (130-400); RBC 5.16 10^6/uL (3.93-5.22); RDW 12.5 % (11.7-14.6); RDW-SD 41.3 fL; WBC 11.37 10^3/uL (4.4-10.8)
[2023-02-08 11:46] LABS: ALT 26 U/L (14-59); AST 18 U/L (15-37); Albumin 3.9 g/dL (3.4-5.0); Alkaline Phosphatase 77 U/L (46-116); Anion Gap 9.7 mmol/L (3-11); BUN 13 mg/dL (7-18); Bilirubin, Total 0.8 mg/dL (0.2-1.0); CO2 25.3 mmol/L (21.0-32.0); CREATININE 0.9 mg/dL (0.55-1.02); Calcium 9.1 mg/dL (8.5-10.1); Chloride 104 mmol/L (98-107); Glucose 106 mg/dL (74-106); Potassium 3.7 mmol/L (3.5-5.1); Sodium 139 mmol/L (136-145); Total Protein 7.2 g/dL (6.4-8.2)
[2023-03-01] MEDS: Normal Saline Flush 10 ML SYR IVP (09:05)
[2023-03-01 09:15] LABS: Abs Immature Grans 0.02 10^3/uL (0.0-0.06); Absolute Basophil Count 0.04 10^3/uL (0.0-0.2); Absolute Eosinophil Count 0.22 10^3/uL (0.0-0.7); Absolute Lymphocyte Count 3.05 10^3/uL (1.2-3.4); Absolute Monocyte Count 0.66 10^3/uL (0.1-0.8); Absolute Neutrophil Count 5.82 10^3/uL (1.2-6.7); Basophils % 0.4; Eosinophils % 2.2; HCT 46.7 % (36.0-46.0); HGB 16.2 g/dL (11.2-15.7); Immature Grans % 0.2; Lymphocytes % 31.1; MCH 30.9 pg (27.0-33.0); MCHC 34.7 % (32.0-36.0); MCV 89 fL (80-95); MPV 9.3 fL (8.0-11.0); Monocytes % 6.7; Neutrophils % 59.4; Platelet Count 273 10^3/uL (130-400); RBC 5.25 10^6/uL (3.93-5.22); RDW 13.2 % (11.7-14.6); RDW-SD 42.8 fL; WBC 9.81 10^3/uL (4.4-10.8)
[2023-03-01 09:35] LABS: ALT 26 U/L (14-59); AST 18 U/L (15-37); Alkaline Phosphatase 79 U/L (46-116); Anion Gap 9.5 mmol/L (3-11); BUN 21 mg/dL (7-18); CO2 24.5 mmol/L (21.0-32.0); CREATININE 0.7 mg/dL (0.55-1.02); Calcium 9.3 mg/dL (8.5-10.1); Chloride 106 mmol/L (98-107); Estimated GFR 104.65 (mL/min/1.73m2); Glucose 109 mg/dL (74-106); Potassium 4.1 mmol/L (3.5-5.1); Sodium 140 mmol/L (136-145); Total Protein 7.5 g/dL (6.4-8.2)
== END 2023-03-09 23:59 | disposition home or self-care (01) ==
LOC: INF 01:43
PROVIDERS: Nurse Practitioner Family; Visit Provider Internal Medicine Hematology & Oncology
DX: Z45.2 Encounter for adjustment and management of vascular access device (principal); C50.412 Malignant neoplasm of upper-outer quadrant of left female breast; Z17.0 Estrogen receptor positive status [ER+]
CPT/HCPCS: 36591; 80053; 85025

== ENCOUNTER 2023-03-22 02:26 | Outpatient (RCR) | payer MEDICAID, SELFPAY ==
[2023-03-22] MEDS: Normal Saline Flush 10 ML SYR IVP (08:22)
[2023-03-22 08:33] LABS: Abs Immature Grans 0.04 10^3/uL (0.0-0.06); Absolute Eosinophil Count 0.28 10^3/uL (0.0-0.7); Absolute Lymphocyte Count 3.72 10^3/uL (1.2-3.4); Absolute Monocyte Count 0.73 10^3/uL (0.1-0.8); Basophils % 0.3; Eosinophils % 2.4; HCT 46.8 % (36.0-46.0); HGB 16.1 g/dL (11.2-15.7); Immature Grans % 0.3; MCH 31.2 pg (27.0-33.0); MCHC 34.4 % (32.0-36.0); MCV 91 fL (80-95); MPV 9.5 fL (8.0-11.0); Monocytes % 6.3; Neutrophils % 58.7; Platelet Count 290 10^3/uL (130-400); RBC 5.16 10^6/uL (3.93-5.22); RDW 13.2 % (11.7-14.6); RDW-SD 44.1 fL; WBC 11.63 10^3/uL (4.4-10.8)
[2023-03-22 08:41] LABS: Absolute Basophil Count 0.03 10^3/uL (0.0-0.2); Absolute Neutrophil Count 6.83 10^3/uL (1.2-6.7)
[2023-03-22 09:01] LABS: ALT 28 U/L (14-59); AST 19 U/L (15-37); Albumin 3.9 g/dL (3.4-5.0); Alkaline Phosphatase 82 U/L (46-116); Anion Gap 9.4 mmol/L (3-11); BUN 15 mg/dL (7-18); Bilirubin, Total 1.1 mg/dL (0.2-1.0); CO2 26.6 mmol/L (21.0-32.0); CREATININE 0.8 mg/dL (0.55-1.02); Calcium 9.2 mg/dL (8.5-10.1); Chloride 104 mmol/L (98-107); Estimated GFR 89.15 (mL/min/1.73m2); Glucose 108 mg/dL (74-106); Potassium 4.2 mmol/L (3.5-5.1); Sodium 140 mmol/L (136-145); Total Protein 7.4 g/dL (6.4-8.2)
== END 2023-04-09 23:59 | disposition home or self-care (01) ==
LOC: INF 02:26
PROVIDERS: Visit Provider Internal Medicine Hematology & Oncology
DX: Z45.2 Encounter for adjustment and management of vascular access device (principal); C50.412 Malignant neoplasm of upper-outer quadrant of left female breast; Z17.0 Estrogen receptor positive status [ER+]
CPT/HCPCS: 36591; 80053; 85025

== ENCOUNTER 2023-03-26 03:50 | Outpatient (CLI) | payer MEDICAID, SELFPAY ==
--- NOTE | 2023-03-26 15:00 | DI.US_ITS ---
APPROVED REPORT EXAM: Comprehensive 2D, Doppler, and color-flow Echocardiogram Patient Location: Out-Patient Red Lead Burner: Pily Whyte RDCS (AE) Indications: Left breast Cancer Other Information Study Quality: Adequate Conclusion Normal left ventricular wall thickness and chamber size. Ejection fraction is 60%. Wall motion is n ormal Normal right ventricular size and systolic function Both atria are normal in size There is no structural or hemodynamically significant valvular disease Estimated right ventricular systolic pressure is 19 mmHg Wall motion Left Ventricle The left ventricle is normal size. The left ventricular systolic function is normal. The left ventric ular ejection fraction is within the normal range. There is normal left ventricular wall thickness. T here is normal LV segmental wall motion. There is no ventricular septal defect visualized. LVEF is 60 %. Right Ventricle Right ventricle is grossly normal in size. Right ventricular systolic function is grossly normal. The RVSP is 19.4 mmHg. Atria The left atrium size is normal. The right atrium size is normal. The interatrial septum is intact wit h no evidence for an atrial septal defect. Aortic Valve The aortic valve is normal in structure. There is no aortic valvular stenosis. No aortic regurgitatio n is present. Mitral Valve The mitral valve is normal in structure. No evidence of mitral valve stenosis. Trace mitral regurgita tion. Tricuspid Valve The tricuspid valve is normal in structure. There is no tricuspid valve stenosis. Mild tricuspid regu rgitation. Pulmonic Valve The pulmonary valve is normal in structure. There is no pulmonic valvular stenosis. There is no pulmo yi valvular regurgitation. Great Vessels The aortic root is normal in size. Ascending aorta is not well visualized. Aortic arch is normal in c aliber. IVC is normal in size and collapses >50% with inspiration. Pericardium There is no pericardial effusion. 2D Dimensions IVSD d PLAX 0.83 cm F: 0.6-1.0 LV Vol A2C d MOD 65.4 mL LVPW d PLAX 0.82 cm F: 0.6 - 1.0 LV Vol A4C d MOD 69.3 mL LVID d PLAX 4.51 cm F: 3.8 - 5.2 LA vol/ BSA A2C s A-L 9.7 mL/m2 LVDs 3.10 cm F: 2.2 - 3.5 LA Area A2C s MOD 9.93 cm2 Ao Root d 3.34 cm F: 2.7 - 3.3 LV EF A4C MOD 59.7 % LV EF Teichholz 59.1 % LV EF A2C MOD 59.1 % LVEF (Jacobson's) 57.97 % F: 54 - 74 LV EF Biplane MOD 58.0 % LV Volume 51.05 mL F: 46 - 106 SV 39.16 mL LV Volume Index 26.04 mL/m2 F: 29 - 61 SV Index 20.02 mL/m2 LV Vol Biplane MOD 67.6 mL FS 31.15 % LV Diastology MV E' medial 0.102 (>0.07 m/s) E/A Ratio 0.8 LV E/e MED 4.65 (<14) MV E Vmax 0.48 (0.4-1.3 m/s) MV E' lateral 0.116 (>0.1 m/s) MV A Vmax 0.60 (0.4-1.3 m/s) LV E/e LAT 4.10 (<14) MV E/A Ratio 0.78 MV E/E' medial 4.69 MV E/E' lateral 4.13 Aortic Valve LVOT Area 3.52 cm2 AoV Area Vmax 2.67 cm2 LVOT Vmax 0.75 m/s AoV Area/ BSA (Vmax) 1.37 cm2/m2 LVOT Mean Jordan. 0.50 m/s MARITZA Mean Jordan. 2.52 cm2 LVOT Peak Grad 2.3 mmHg MARITZA Mean Jordan. Index 1.29 cm2/m2 LVOT Mean Grad 1.2 mmHg LVOT VTI 0.114 m LVOT Diam s 2.10 cm AoV Vmax 0.99 m/s Velocity Ratio 0.76 AoV Mean Jordan. 0.70 m/s AoV Peak Grad 3.9 mmHg LVOT SV 40.22 mL AoV Mean Grad 2.2 mmHg AoV VTI 0.174 m AoV Area VTI 2.32 cm2 AoV Area/ BSA (VTI) 1.18 cm/m2 Mitral Valve MV DT 332 (160-240 msec) MV PHT 96 msec MV Area PHT 2.29 cm2 MV VTI 0.195 m MV Area VTI 2.06 (4.0-6.0 cm2) Pulmonary Valve PV Vmax 0.77 (0.5-1.5 m/s) RVOT Peak Gr. 1.22 mmHg PV Peak Grad 2.4 mmHg RVOT Mean Gr. 0.60 mmHg PV Mean Grad 1.3 mmHg RVOT VTI 0.089 m PV VTI 0.142 m RVOT Vmax 0.55 m/s Tricuspid Valve TR Peak Grad 16.3 mmHg TR Vmax 2.02 m/s RA Pressure 3.00 mmHg RVSP (TR) 19.4 mmHg
== END 2023-03-26 04:10 ==
PROVIDERS: Visit Provider Internal Medicine Hematology & Oncology
DX: C50.912 Malignant neoplasm of unspecified site of left female breast (principal)
CPT/HCPCS: 93306

== ENCOUNTER 2023-05-03 03:58 | Outpatient (RCR) | payer MEDICAID, SELFPAY ==
[2023-04-12] MEDS: Normal Saline Flush 10 ML SYR IVP (09:18)
[2023-04-12 09:36] LABS: Abs Immature Grans 0.03 10^3/uL (0.0-0.06); Absolute Basophil Count 0.03 10^3/uL (0.0-0.2); Absolute Lymphocyte Count 2.74 10^3/uL (1.2-3.4); Absolute Monocyte Count 0.57 10^3/uL (0.1-0.8); Absolute Neutrophil Count 6.27 10^3/uL (1.2-6.7); Basophils % 0.3; HCT 45.5 % (36.0-46.0); HGB 15.3 g/dL (11.2-15.7); Immature Grans % 0.3; Lymphocytes % 27.8; MCHC 33.6 % (32.0-36.0); MCV 92 fL (80-95); MPV 9.2 fL (8.0-11.0); Monocytes % 5.8; Neutrophils % 63.8; Platelet Count 290 10^3/uL (130-400); RBC 4.94 10^6/uL (3.93-5.22); RDW 13.2 % (11.7-14.6); RDW-SD 45.1 fL; WBC 9.84 10^3/uL (4.4-10.8)
[2023-04-12 10:09] LABS: ALT 25 U/L (14-59); AST 15 U/L (15-37); Albumin 3.9 g/dL (3.4-5.0); Alkaline Phosphatase 82 U/L (46-116); Anion Gap 8.3 mmol/L (3-11); BUN 18 mg/dL (7-18); Bilirubin, Total 0.6 mg/dL (0.2-1.0); CO2 27.7 mmol/L (21.0-32.0); CREATININE 0.8 mg/dL (0.55-1.02); Calcium 9.3 mg/dL (8.5-10.1); Chloride 103 mmol/L (98-107); Estimated GFR 89.15 (mL/min/1.73m2); Glucose 109 mg/dL (74-106); Potassium 4.2 mmol/L (3.5-5.1); Sodium 139 mmol/L (136-145); Total Protein 7.4 g/dL (6.4-8.2)
[2023-05-03] MEDS: Normal Saline Flush 10 ML SYR IVP (11:06)
[2023-05-03 11:21] LABS: Abs Immature Grans 0.04 10^3/uL (0.0-0.06); Absolute Eosinophil Count 0.15 10^3/uL (0.0-0.7); Absolute Lymphocyte Count 2.73 10^3/uL (1.2-3.4); Basophils % 0.3; Eosinophils % 1.3; HCT 43.7 % (36.0-46.0); HGB 14.7 g/dL (11.2-15.7); Immature Grans % 0.3; Lymphocytes % 23.5; MCH 31.2 pg (27.0-33.0); MCHC 33.6 % (32.0-36.0); MCV 93 fL (80-95); MPV 9.1 fL (8.0-11.0); Monocytes % 5.2; Neutrophils % 69.4; Platelet Count 271 10^3/uL (130-400); RBC 4.71 10^6/uL (3.93-5.22); RDW 12.8 % (11.7-14.6); RDW-SD 43.8 fL; WBC 11.63 10^3/uL (4.4-10.8)
[2023-05-03 11:24] LABS: Absolute Basophil Count 0.03 10^3/uL (0.0-0.2); Absolute Neutrophil Count 8.07 10^3/uL (1.2-6.7)
[2023-05-03 11:40] LABS: ALT 24 U/L (14-59); AST 17 U/L (15-37); Albumin 3.7 g/dL (3.4-5.0); Alkaline Phosphatase 74 U/L (46-116); Anion Gap 8.4 mmol/L (3-11); BUN 17 mg/dL (7-18); Bilirubin, Total 0.7 mg/dL (0.2-1.0); CO2 26.6 mmol/L (21.0-32.0); CREATININE 0.7 mg/dL (0.55-1.02); Calcium 9.2 mg/dL (8.5-10.1); Chloride 104 mmol/L (98-107); Estimated GFR 104.65 (mL/min/1.73m2); Glucose 102 mg/dL (74-106); Sodium 139 mmol/L (136-145); Total Protein 6.9 g/dL (6.4-8.2)
== END 2023-05-10 23:59 | disposition home or self-care (01) ==
LOC: INF 03:58
PROVIDERS: Nurse Practitioner Family; Visit Provider Internal Medicine Hematology & Oncology
DX: C50.412 Malignant neoplasm of upper-outer quadrant of left female breast (principal); Z17.0 Estrogen receptor positive status [ER+]; Z45.2 Encounter for adjustment and management of vascular access device
CPT/HCPCS: 36591; 80053; 85025

== ENCOUNTER 2023-05-16 07:33 | Day surgery (SDC) | payer MEDICAID, SELFPAY ==
--- NOTE | 2023-05-16 06:15 | ANES.PREOP_ITS ---
General Info Date of Service Date Performed: 05/16/23 Height: 5 ft 7 in Weight: 86.636 kg Body Mass Index (BMI): 29.9 Surgical Procedure: Operation Date: 05/16/23 09:05 Proposed Procedure Side Surgeon tyler Stanton MD Meds Allergies and Home Medications Allergies Allergy/AdvReac Type Severity Reaction Status Date / Time Fish Containing Products Allergy Severe abd pain Verified 05/16/23 07:54 nitrofurantoin Allergy Intermediate Hives Verified 05/16/23 07:54 [From Macrobid] nitrofurantoin Allergy Intermediate Hives Verified 05/16/23 07:54 macrocrystalline [From Macrobid] Home Medication Medication Instructions Recorded anastrozole 1 mg tablet (Arimidex) 1 mg PO DAILY 04/12/23 bisacodyl 5 mg tablet,delayed 5 mg PO ONCE #4 tabs 04/12/23 release (Dulcolax (bisacodyl)) escitalopram oxalate 20 mg tablet 20 mg PO DAILY 04/12/23 (Lexapro) multivitamin (Daily Multi-Vitamin 1 tab PO DAILY 04/12/23 tablet) polyethylene glycol 3350 17 17 g PO ONCE #238 grams 04/12/23 gram/dose oral powder Current Visit Medications: Current Medications Generic Name Dose Route Start Last Admin Trade Name Freq PRN Reason Stop Dose Admin Ringer's Solution 1,000 mls @ 80 mls/hr 05/16/23 06:00 IV 06/14/23 23:59 INFUSION CORTEZ IV Miscellaneous Supplies 1 each 05/16/23 06:00 Iv Access IV 06/14/23 23:59 DIRECTED CORTEZ Sodium Chloride 0 ml 05/16/23 06:00 Normal Saline Flush 10 Ml Syr IV 06/14/23 23:59 PRN PRN Sodium Chloride 0 ml 05/16/23 06:00 Normal Saline 10 Ml Vial IJ 06/14/23 23:59 DIRECTED PRN Sterile Water 0 ml 05/16/23 06:00 Water,Injection,Sterile 10 Ml Vial IJ 06/14/23 23:59 DIRECTED PRN PFSH Active Problems Active Problems: Problem Status Onset Code Chest wall mass R22.2 Breast cancer ~05/2022 C50.919 Medical History Medical History (Updated 05/16/23 @ 08:36 by Butch Stanton MD) Anxiety and depression Fatigue Hot flashes Port-A-Cath in place left Surgical History Surgical History H/O exploratory laparotomy H/O LEEP H/O mastectomy (~05/2022) single H/O Spinal surgery Status post de Quervain's release surgery Tobacco Smoking/Tobacco Use Status: Current every day Tobacco Type: cigarettes Alcohol Alcohol Intake: former Substance Use Substance use: Daily Substance use type: marijuana Details: Edibles Vital Signs and Lab Results Vital Signs Most Recent Vital Signs in EMR: Temp Pulse Resp BP Pulse Ox 36.2 C L 102 H 18 121/91 H 96 05/16/23 07:45 05/16/23 07:45 05/16/23 07:45 05/16/23 07:45 05/16/23 07:45 Lab Results Blood Type / Crossmatch: No Data to Display Complete Blood Count: White Blood Count 11.63 10^3/uL (4.4-10.8) H 05/03/23 10:35 Red Blood Count 4.71 10^6/uL (3.93-5.22) 05/03/23 10:35 Hemoglobin 14.7 g/dL (11.2-15.7) 05/03/23 10:35 Hematocrit 43.7 % (36.0-46.0) 05/03/23 10:35 Platelet Count 271 10^3/uL (130-400) 05/03/23 10:35 Complete Metabolic Panel: Sodium 139 mmol/L (136-145) 05/03/23 10:35 Potassium 4.0 mmol/L (3.5-5.1) 05/03/23 10:35 Chloride 104 mmol/L (98-107) 05/03/23 10:35 Carbon Dioxide 26.6 mmol/L (21.0-32.0) 05/03/23 10:35 BUN 17 mg/dL (7-18) 05/03/23 10:35 Creatinine 0.7 mg/dL (0.55-1.02) 05/03/23 10:35 Est GFR (CKD-EPI 2020) 104.65 (mL/min/1.73m2) 05/03/23 10:35 Calcium 9.2 mg/dL (8.5-10.1) 05/03/23 10:35 Albumin 3.7 g/dL (3.4-5.0) 05/03/23 10:35 Glucose 102 mg/dL (74-106) 05/03/23 10:35 Liver Function Panel: Alanine Aminotransferase (ALT/SGPT) 24 U/L (14-59) 05/03/23 10: 35 Aspartate Amino Transf (AST/SGOT) 17 U/L (15-37) 05/03/23 10:35 Coagulation Panel: No Data to Display Cardiac Panel: No Data to Display Arterial Blood Gas: No Data to Display Venous Blood Gas: No Data to Display Pancreas Panel: No Data to Display Thyroid Panel: No Data to Display Infectious Disease: No Data to Display Blood Cultures: No Data to Display Toxicology Panel: No Data to Display Panel: No Data to Display Imaging and Studies Imaging and Studies Study information below may be from another EMR and interpreted by another provider. Please see original notes in EMR for more complete details. Echocardiogram Summary: 04/01: LVEF 60%, no sig valve issues, RVSP 19 mmHg. Anesthesia Assessment and Plan Anesthesia History Personal History: No History of Anesthesia Complications Family History: No Family History of Anesthesia Complications Exercise Tolerance Exercise Tolerance: Metabolic Equivalents>4 Cardiac & Pulmonary Exam Cardiac Exam: Normal S1/S2 Heart Sounds Pulmonary Exam: Clear Bilateral Breath Sounds Implantable Cardiac Device Does patient have a Pacemaker or an ICD?: No Airway Exam Known Difficult Airway: No Mallampati Class: 4 Mouth Opening: Normal (> 3cm) Thyromental Distance: Greater than 3 cm Neck Range of Motion: Full ROM Neck Circumference: Normal Teeth Condition: Normal Dentition ASA Classification ASA Score: ASA 2 Emergency Case?: No NPO Status NPO Status: NPO Clears >2 hours, Solids >8 hours Status Status: Not Relevant due to Medical History Anesthesia Plan Resuscitation Status: Full Code Anesthesia Technique: General Anesthesia Airway Planned: Natural Airway Monitors Used: Standard Monitors Preoperative Comments:: 52 yo female for colo. Sig PMHx: breast CA, anxiety/depression, tobacco/cannabis daily.
[2023-05-16 07:45] VITALS: BP 121/91; PULSE 102; RESP 18; TEMP 36.2; O2SAT 96
[2023-05-16] MEDS: Lactated Ringers 1,000 ML 80 ML IV (08:03)
[2023-05-16 08:09] VITALS: BMI 29.9
--- NOTE | 2023-05-16 08:32 | SCONE_ITS ---
Date of service: 05/16/23 Time of Service: 08:32 Assessment and Plan Assessment and plan (1) Colon cancer screening: Status: Acute Assessment and plan: 52-year-old woman without symptoms but who has increased risk because of family history of colon polyps due for her first screening. Plan: Colonoscopy History of Present Illness Narrative: The patient is a 52-year-old woman who has never had a colonoscopy before. She does not have any symptoms. There is no family history of colon cancer but she does have a family history of colon polyps in her father. Her only intra- abdominal surgery is of a laparoscopic LEEP procedure. PFSH All Active Problems (Updated 05/16/23 @ 08:36 by Butch Stanton MD) Colon cancer screening (Acute) Chest wall mass (Acute) Breast cancer (Chronic ~05/2022) Medical History (Updated 05/16/23 @ 08:36 by Butch Stanton MD) Anxiety and depression Fatigue Hot flashes Port-A-Cath in place left Surgical History H/O exploratory laparotomy H/O LEEP H/O mastectomy (~05/2022) single H/O Spinal surgery Status post de Quervain's release surgery Social History (Updated 04/12/23 @ 13:35 by MARKO Swann) Smoking/Tobacco Use Status: Current every day Tobacco Type: cigarettes Smoking risk assessment performed?: Yes Alcohol Intake: former Drug use: Daily Substance use type: marijuana Details: Edibles last used 05/13/23 Housing: apartment Do you feel safe at home: Yes Do you feel safe in your relationship?: Yes Additional Social history: lives alone Exam Narrative Exam Narrative: General: Nontoxic, comfortable and interactive Neuro: Alert and oriented x3 Psych: Good mood and affect, good insight and understanding into her condition Heart: Regular Chest: Nonlabored breathing, no wheezing Results Last Vital Signs Temp 97.2 F L 05/16/23 07:45 Pulse 102 H 05/16/23 07:45 Resp 18 05/16/23 07:45 BP 121/91 H 05/16/23 07:45 Pulse Ox 96 05/16/23 07:45
--- NOTE | 2023-05-16 08:37 | COLE_ITS ---
Date of service: 05/16/23 Time of Service: 08:37 Colonoscopy Report Procedure Description: Procedures performed: 1. Colonoscopy with snare polypectomy x6 2. Cold forceps polypectomy x1 3. Ablation/fulguration/destruction of polyps x5 Preoperative diagnosis: Screening colonoscopy Postoperative diagnosis: Colorectal polyps, mild grade 1 internal hemorrhoids Surgeon: Maryjo Stanton Anesthesia: Clayton Indication for procedure: 52-year-old woman has no symptoms. Has never had a colonoscopy. No family history of colon cancer or polyps. Due for screening. Findings: The terminal ileum was normal. The right and transverse colon's were normal. In the sigmoid colon a 3-5 mm sessile polyp was removed with hot snare technique. In the proximal rectum another 2-3 mm polyp was removed with cold forceps technique. In the mid rectum four 3-5 mm sessile polyp was removed with hot snare technique. In the distal rectum another 3-5 mm sessile polyp was removed with hot snare technique. There were multiple other 2-3 mm polyps spread around the rectum. It was not obvious whether they were hyperplastic or not. I ablated them with the tip of the hot snare. Mild hemorrhoidal disease. Surveillance/follow-up recommendations: 3 years Complications: None Blood loss: Minimal Specimens:?? YES Quality of Prep:?? Good Procedure in detail: Written consent was obtained from the patient who was in agreement with the risks, benefits and indications of the procedure.? We went to the endoscopy suite and laid the patient in left lateral decubitus position.? Anesthesia was administered which was tolerated well.? A timeout was performed and when we are all in agreement we began the procedure. Digital rectal exam and visual examination was performed and within normal limits.? A well?lubricated colonoscope was advanced without difficulty all the way to the cecum identified by the ileocecal valve, and triangular folds and appendiceal orifice.? The terminal ileum was normal. It was then slowly withdrawn.?? Retroflexion was performed in the rectum.? The findings /interventions are noted above. The scope was then removed and the patient tolerated the procedure well and was then taken back to the PACU in hemodynamically stable condition.
--- NOTE | 2023-05-16 08:57 | BOWEL_PTH ---
PATIENT: Kimberley Camarena I LOC: [facility] U#:[id number] AGE/SX: 52/F ROOM: RE05/16/[address]: Butch Stanton : 1970 BED: DIS: 05/16/2023 SPEC #: [id number] RECD: 05/16/23 13:11 STATUS: [facility] #: [id number] KIARA: 05/16/23 08:[address]: Butch Stanton DEPT: Surgical Specimen RECD BY: Layne Jenkins ENTERED: 05/16/23 13:13 SP TYPE: Bowel OTHR DR: FELIBERTO RAMIREZ Tissues: 1 - BIOPSY BOWEL 2 - BIOPSY BOWEL 3 - BIOPSY BOWEL 4 - BIOPSY BOWEL Procedures: GROSS AND MICRO LEVEL 4 Comments: [id number]
[2023-05-16 09:14] VITALS: BP 114/75; PULSE 79; RESP 18; TEMP 36.6; O2SAT 96
--- NOTE | 2023-05-16 09:22 | W.ANESPOSTOP ---
Postoperative Evaluation Date, Time and Location Date Performed: 05/16/23 Time Performed: 09:22 Patient Location: Day Surgery Unit Vital Signs Most Recent Imported Vital Signs: Most Recent Vital Signs Temp Pulse Resp BP Pulse Ox 36.6 C 79 18 114/75 96 05/16/23 09:14 05/16/23 09:14 05/16/23 09:14 05/16/23 09:14 05/16/23 09:14 Pain Score Most Recent Pain Score: Most Recent Pain Score Pain Level 0 05/16/23 09:14 Assessment Mental Status: Awake (Alert & Oriented to Patient Baseline) Airway and Respiratory Function: Patent airway with normal (patient baseline) respiratory exam Cardiovascular Function: Hemodynamically Stable Hydration Status: Adequately Hydrated Nausea & Vomiting: No Nausea or Vomiting Pain: Pt. Denies Any Pain Peripheral Nerve Block: Patient did not receive a nerve block
--- NOTE | 2023-05-16 09:24 | W.PM.DSUDISC ---
Date of service: 05/16/23 Time of Service: 09:24 Discharge Plan Disposition Patient Disposition: Home Condition: Good Discharge Details Attending Provider: Butch Stanton Primary Care Provider: Carol Montiel Home Meds and New Rx's Prescriptions: No Action escitalopram oxalate [Lexapro] 20 mg tablet 20 mg PO DAILY anastrozole [Arimidex] 1 mg tablet 1 mg PO DAILY multivitamin [Daily Multi-Vitamin] Tablet 1 tab PO DAILY bisacodyl [Dulcolax (bisacodyl)] 5 mg tablet,delayed release (DR/EC) 5 mg PO ONCE Qty: 4 0RF Rx Instructions: Take per colonoscopy instructions provided by ordering providers office polyethylene glycol 3350 17 gram/dose powder 17 g PO ONCE Qty: 238 0RF Rx Instructions: Take per colonoscopy instructions provided by ordering providers office Discharge Instructions Additional Instructions: FINDINGS: Multiple polyps were removed today. These get sent to pathology and get reviewed. Depending on the types of polyps that these end up being, will decipher whether or not you need a more frequent follow-up/repeat colonoscopy. It would be anywhere from 3 to 10 years depending on the types of polyps. Mild hemorrhoidal disease was found which is extremely common, benign, and there is nothing that needs to be done about it as long as you are not having symptoms that affect daily living. Stand Alone Forms: Colonoscopy Post Instructions Activity:: Activity as Tolerated Diet:: Normal Diet Discharge Orders Discharge Orders: Discharge Order (Routine); Ordered 05/16/23 Ordered By: Butch Stanton DS: Diagnosis Discharge Diagnosis (1) Colon cancer screening: Status: Acute Asessment and Plan: Multiple polyps were removed today. These get sent to pathology and get reviewed. Depending on the types of polyps that these end up being, will decipher whether or not you need a more frequent follow-up/repeat colonoscopy. It would be anywhere from 3 to 10 years depending on the types of polyps. Mild hemorrhoidal disease was found which is extremely common, benign, and there is nothing that needs to be done about it as long as you are not having symptoms that affect daily living.
[2023-05-16 09:52] VITALS: BP 137/100; PULSE 73; RESP 18; TEMP 36.6; O2SAT 97
== END 2023-05-16 10:22 | disposition home or self-care (01) ==
PROVIDERS: PCP Nurse Practitioner Family; Visit Provider Student in an Organized Health Care Education/Training Program
PROC: 0DJD8ZZ Inspection of Lower Intestinal Tract, Via Natural or Artificial Opening Endoscopic (ICD-10-PCS; CPT 45378; principal; 2023-05-16 09:00)
DX: Z12.11 Encounter for screening for malignant neoplasm of colon (principal); K62.1 Rectal polyp; K63.5 Polyp of colon; K64.0 First degree hemorrhoids
CPT/HCPCS: 45385; 45384; 88305; J2001

== ENCOUNTER 2023-05-24 02:14 | Outpatient (RCR) | payer MEDICAID, SELFPAY ==
[2023-05-24] MEDS: Normal Saline Flush 10 ML SYR IVP (09:42)
[2023-05-24 09:59] LABS: Abs Immature Grans 0.03 10^3/uL (0.0-0.06); Absolute Basophil Count 0.05 10^3/uL (0.0-0.2); Absolute Eosinophil Count 0.27 10^3/uL (0.0-0.7); Absolute Lymphocyte Count 2.91 10^3/uL (1.2-3.4); Absolute Monocyte Count 0.64 10^3/uL (0.1-0.8); Basophils % 0.5; Eosinophils % 2.6; HGB 15.9 g/dL (11.2-15.7); Immature Grans % 0.3; Lymphocytes % 27.7; MCH 31.9 pg (27.0-33.0); MCHC 34.6 % (32.0-36.0); MCV 92 fL (80-95); MPV 9.5 fL (8.0-11.0); Monocytes % 6.1; Neutrophils % 62.8; Platelet Count 254 10^3/uL (130-400); RBC 4.98 10^6/uL (3.93-5.22); RDW 12.6 % (11.7-14.6); RDW-SD 43.2 fL
[2023-05-24 10:24] LABS: ALT 30 U/L (14-59); AST 20 U/L (15-37); Albumin 3.8 g/dL (3.4-5.0); Alkaline Phosphatase 85 U/L (46-116); Anion Gap 5.6 mmol/L (3-11); BUN 19 mg/dL (7-18); Bilirubin, Total 0.7 mg/dL (0.2-1.0); CO2 29.4 mmol/L (21.0-32.0); CREATININE 0.9 mg/dL (0.55-1.02); Calcium 9.1 mg/dL (8.5-10.1); Chloride 103 mmol/L (98-107); Glucose 106 mg/dL (74-106); Potassium 4.2 mmol/L (3.5-5.1); Sodium 138 mmol/L (136-145); Total Protein 7.3 g/dL (6.4-8.2)
== END 2023-06-09 23:59 | disposition home or self-care (01) ==
LOC: INF 02:14
PROVIDERS: Nurse Practitioner Family; Visit Provider Internal Medicine Hematology & Oncology
DX: C50.412 Malignant neoplasm of upper-outer quadrant of left female breast (principal); Z17.0 Estrogen receptor positive status [ER+]
CPT/HCPCS: 36591; 80053; 85025

== ENCOUNTER 2023-07-05 03:50 | Outpatient (RCR) | payer MEDICAID, SELFPAY ==
[2023-06-14] MEDS: Normal Saline Flush 10 ML SYR IVP (08:22)
[2023-06-14 08:34] LABS: Abs Immature Grans 0.02 10^3/uL (0.0-0.06); Absolute Basophil Count 0.03 10^3/uL (0.0-0.2); Absolute Eosinophil Count 0.29 10^3/uL (0.0-0.7); Absolute Lymphocyte Count 2.69 10^3/uL (1.2-3.4); Absolute Monocyte Count 0.51 10^3/uL (0.1-0.8); Absolute Neutrophil Count 4.05 10^3/uL (1.2-6.7); Basophils % 0.4; Eosinophils % 3.8; HCT 45.7 % (36.0-46.0); HGB 15.3 g/dL (11.2-15.7); Immature Grans % 0.3; Lymphocytes % 35.4; MCH 31.5 pg (27.0-33.0); MCHC 33.5 % (32.0-36.0); MCV 94 fL (80-95); MPV 9.2 fL (8.0-11.0); Monocytes % 6.7; Neutrophils % 53.4; Platelet Count 266 10^3/uL (130-400); RBC 4.86 10^6/uL (3.93-5.22); RDW 12.7 % (11.7-14.6); RDW-SD 43.8 fL; WBC 7.59 10^3/uL (4.4-10.8)
[2023-06-14 08:52] LABS: ALT 23 U/L (14-59); AST 16 U/L (15-37); Albumin 3.6 g/dL (3.4-5.0); Alkaline Phosphatase 81 U/L (46-116); Anion Gap 7.9 mmol/L (3-11); BUN 18 mg/dL (7-18); Bilirubin, Total 0.4 mg/dL (0.2-1.0); CO2 26.1 mmol/L (21.0-32.0); CREATININE 0.8 mg/dL (0.55-1.02); Calcium 9.2 mg/dL (8.5-10.1); Chloride 105 mmol/L (98-107); Estimated GFR 89.15 (mL/min/1.73m2); Glucose 141 mg/dL (74-106); Potassium 3.8 mmol/L (3.5-5.1); Sodium 139 mmol/L (136-145); Total Protein 7.1 g/dL (6.4-8.2)
[2023-07-05] MEDS: Normal Saline Flush 10 ML SYR IVP (08:15)
[2023-07-05 08:19] LABS: Abs Immature Grans 0.02 10^3/uL (0.0-0.06); Absolute Basophil Count 0.03 10^3/uL (0.0-0.2); Absolute Eosinophil Count 0.25 10^3/uL (0.0-0.7); Absolute Lymphocyte Count 3.05 10^3/uL (1.2-3.4); Absolute Monocyte Count 0.57 10^3/uL (0.1-0.8); Absolute Neutrophil Count 4.54 10^3/uL (1.2-6.7); Basophils % 0.4; HCT 45.2 % (36.0-46.0); HGB 15.1 g/dL (11.2-15.7); Immature Grans % 0.2; Lymphocytes % 36.1; MCH 30.8 pg (27.0-33.0); MCHC 33.4 % (32.0-36.0); MCV 92 fL (80-95); Monocytes % 6.7; Neutrophils % 53.6; Platelet Count 258 10^3/uL (130-400); RDW 12.4 % (11.7-14.6); RDW-SD 42.5 fL; WBC 8.46 10^3/uL (4.4-10.8)
[2023-07-05 08:37] LABS: ALT 26 U/L (14-59); AST 18 U/L (15-37); Albumin 3.7 g/dL (3.4-5.0); Alkaline Phosphatase 81 U/L (46-116); BUN 15 mg/dL (7-18); Bilirubin, Total 0.5 mg/dL (0.2-1.0); CREATININE 0.7 mg/dL (0.55-1.02); Calcium 9.1 mg/dL (8.5-10.1); Chloride 105 mmol/L (98-107); Estimated GFR 104.65 (mL/min/1.73m2); Glucose 100 mg/dL (74-106); Sodium 137 mmol/L (136-145); Total Protein 7.1 g/dL (6.4-8.2)
== END 2023-07-10 23:59 | disposition home or self-care (01) ==
LOC: INF 03:50
PROVIDERS: Visit Provider Internal Medicine Hematology & Oncology
DX: C50.412 Malignant neoplasm of upper-outer quadrant of left female breast (principal); Z17.0 Estrogen receptor positive status [ER+]; Z45.2 Encounter for adjustment and management of vascular access device
CPT/HCPCS: 36591; 80053; 85025

== ENCOUNTER → 2023-07-24 10:46 | Outpatient (CLI) | payer MEDICAID, SELFPAY ==
--- NOTE | 2023-07-24 11:00 | DI.US_ITS ---
APPROVED REPORT EXAM: Comprehensive 2D, Doppler, and color-flow Echocardiogram Patient Location: Out-Patient [place] Examiner: Pily Whyte RDCS (AE) Indications: Malignant neoplasm of left breast, estrogen receptor positive Other Information Study Quality: Fair. Technically limited study due to body habitus. Conclusion Normal left ventricular wall thickness and chamber size. Ejection fraction is 50%. Septal motion edmonds ggest an intraventricular conduction delay Normal right ventricular size and systolic function Both atria are normal in size There is no structural or hemodynamically significant valvular disease Estimated right ventricular systolic pressure is 19 mmHg Paired to prior echocardiogram from March, LV function has worsened Wall motion Left Ventricle The left ventricle is normal size. Left ventricular systolic function is mildly decreased. There is n ormal left ventricular wall thickness. Septal motion suggests an interventricular conduction delay Th ere is no ventricular septal defect visualized. LVEF is 50%. Right Ventricle Right ventricle is not well visualized. Right ventricular systolic function could not be assessed. Atria The left atrium size is normal. The right atrium size is normal. The interatrial septum is intact wit h no evidence for an atrial septal defect. Aortic Valve The aortic valve is normal in structure. Aortic valve is trileaflet. There is no aortic valvular sten osis. No aortic regurgitation is present. Mitral Valve The mitral valve is normal in structure. No evidence of mitral valve stenosis. Trace mitral regurgita tion. Tricuspid Valve The tricuspid valve is normal in structure. There is no tricuspid valve stenosis. Trace tricuspid reg urgitation. The RVSP is 19.1 mmHg. Pulmonic Valve Pulmonic valve is not well visualized. There is no pulmonic valvular stenosis. There is no pulmonic v alvular regurgitation. Great Vessels The aortic root is normal in size. Ascending aorta is not well visualized. Aortic arch is normal in c aliber. IVC is normal in size and collapses >50% with inspiration. Pericardium There is no pericardial effusion. 2D Dimensions IVSD d PLAX 0.81 cm F: 0.6-1.0 Ao Root d 3.37 cm F: 2.7 - 3.3 LVPW d PLAX 0.80 cm F: 0.6 - 1.0 LVID d PLAX 4.85 cm F: 3.8 - 5.2 LVDs 3.77 cm F: 2.2 - 3.5 LV EF Teichholz 45.0 % FS 22.37 % LV EDV (Teich) 110.3 mL LV ESV (Teich) 60.7 mL M-Mode TAPSE 2.45 cm (M/F) >1.7 Auto EF LV EDV A4C 112.8 mL LV EDV A2C 141.7 mL LV EDV BP LV ESV A4C 61.2 mL LV ESV A2C 78.1 mL LV ESV BP LVEF(%) A4C 45.8 % LVEF(%) A2C 44.9 % LVEF(%) BP LV SV A4C 51.7 ml LV SV A2C 63.6 ml LV SV BP LV CO A4C 3.8 L/min LV CO A2C 4.6 L/min LV CO BP HR A4C 72.88 BPM HR A2C 71.69 BPM LV EDV Index (BP) LV Diastology MV E' medial 0.066 (>0.07 m/s) MV E Vmax 0.62 (0.4-1.3 m/s) MV E/E' MED 9.40 (<14) MV A Vmax 0.65 (0.4-1.3 m/s) MV E' lateral 0.093 (>0.1 m/s) E/A Ratio 1.0 MV E/E' LAT 6.72 (<14) MV E' Average 0.079 m/s MV E/E'(average) 7.84 Aortic Valve AoV Vmax 1.00 m/s LVOT Vmax 0.79 m/s AoV Peak Grad 4.0 mmHg LVOT Peak Grad 2.5 mmHg AoV Area (Vmax) 2.59 cm2 LVOT VTI 0.147 m AoV VTI 0.216 m LVOT Mean Grad 1.4 mmHg AoV Mean Jordan. 0.75 m/s LVOT SV 48.60 mL AoV Mean Grad 2.5 mmHg LVOT Diam s 2.05 cm AoV Area (VTI) 2.25 cm2 Velocity Ratio 0.79 Mitral Valve MV DT 155 (160-240 msec) MV Vmax TIPS 0.66 m/s MV Mean Grad 0.8 (<2mmHg) MV VTI 0.220 m Pulmonary Valve PV Vmax 0.63 (0.5-1.5 m/s) RVOT Vmax 0.49 m/s PV Peak Grad 1.6 mmHg RVOT Peak Gr. 0.9 mmHg PV Mean Jordan 0.47 m/s RVOT VTI 0.099 m PV Mean Grad 1.0 mmHg RVOT Mean Gr. 0.5 mmHg Tricuspid Valve RA Pressure 3.00 mmHg TR Vmax 2.01 m/s TV S' 0.10 m/s TR Peak Grad 16.1 mmHg RVSP (TR) 19.1 mmHg
== END ==
PROVIDERS: Visit Provider Internal Medicine Hematology & Oncology
DX: C50.912 Malignant neoplasm of unspecified site of left female breast (principal)
CPT/HCPCS: 93306

== ENCOUNTER 2023-10-04 13:00 | Outpatient (RCR) | payer MEDICAID, SELFPAY ==
[2023-10-04 14:16] LABS: Abs Immature Grans 0.03 10^3/uL (0.0-0.06); Absolute Basophil Count 0.03 10^3/uL (0.0-0.2); Absolute Lymphocyte Count 3.23 10^3/uL (1.2-3.4); Absolute Monocyte Count 0.55 10^3/uL (0.1-0.8); Absolute Neutrophil Count 5.42 10^3/uL (1.2-6.7); Basophils % 0.3; Eosinophils % 1.1; HCT 44.6 % (36.0-46.0); Immature Grans % 0.3; Lymphocytes % 34.5; MCH 30.6 pg (27.0-33.0); MCHC 33.6 % (32.0-36.0); MCV 91 fL (80-95); MPV 9.2 fL (8.0-11.0); Monocytes % 5.9; Neutrophils % 57.9; Platelet Count 289 10^3/uL (130-400); RDW 12.7 % (11.7-14.6); RDW-SD 42.4 fL; WBC 9.36 10^3/uL (4.4-10.8)
[2023-10-04 14:34] LABS: ALT 21 U/L (14-59); AST 16 U/L (15-37); Albumin 3.7 g/dL (3.4-5.0); Alkaline Phosphatase 81 U/L (46-116); Anion Gap 8.5 mmol/L (3-11); BUN 14 mg/dL (7-18); Bilirubin, Total 0.7 mg/dL (0.2-1.0); CO2 27.5 mmol/L (21.0-32.0); CREATININE 0.7 mg/dL (0.55-1.02); Calcium 9.7 mg/dL (8.5-10.1); Chloride 106 mmol/L (98-107); Estimated GFR 104.65 (mL/min/1.73m2); Glucose 98 mg/dL (74-106); Sodium 142 mmol/L (136-145); Total Protein 7.3 g/dL (6.4-8.2)
== END 2023-10-10 23:59 | disposition home or self-care (01) ==
LOC: INF 13:00
PROVIDERS: Visit Provider Internal Medicine Hematology & Oncology
DX: Z17.0 Estrogen receptor positive status [ER+]; C50.412 Malignant neoplasm of upper-outer quadrant of left female breast
CPT/HCPCS: 36415; 80053; 85025

== ENCOUNTER 2024-02-26 15:48 | Outpatient (REF) | payer MEDICAID, SELFPAY ==
--- NOTE | 2024-02-26 14:10 | PAPFT_PTH ---
PATIENT: Kimberley Camarena I LOC: [facility] U#:[id number] AGE/SX: 53/F ROOM: RE02/26/[address]: Deandra Jacobs MD : 1970 BED: DIS: 02/26/2024 SPEC #: [id number] RECD: 02/26/24 18:13 STATUS: OUSMANE REAnusha #: [id number] KIARA: 02/26/24 14:[address]: Deandra Jacobs DEPT: [facility] Cytology RECD BY: Layne Jenkins ENTERED: 02/26/24 18:14 SP TYPE: PAPFT LISETH DR: Unknown,Unknown Tissues: 1 - CX/ENDOCX FOR PAP SMEARS Procedures: PAP THIN PREP/UVM Screening HPV DNA PROBE Comments: [id number]
== END 2024-02-26 15:49 | disposition home or self-care (01) ==
LOC: LBN 15:48
PROVIDERS: Visit Provider Obstetrics & Gynecology
DX: Z12.4 Encounter for screening for malignant neoplasm of cervix (principal); Z11.51 Encounter for screening for human papillomavirus (HPV)
CPT/HCPCS: 88142; 87624

== ENCOUNTER 2024-07-02 23:50 | Emergency (ER) | payer MEDICAID, SELFPAY ==
[2024-07-02 23:54] VITALS: BP 169/109; PULSE 76; RESP 16; TEMP 36.3; O2SAT 97
[2024-07-03] VITALS: BP 169/109; PULSE 76; RESP 16; TEMP 36.3; O2SAT 97
--- NOTE | 2024-07-03 00:15 | DI.CT_ITS ---
Exam(s) CT NECK W EXAM: CT NECK W INDICATION: left facial swelling cracked mandibular molar. COMPARISON: No exams were available for comparison TECHNIQUE: FINDINGS: SKIN/SUBCUTANEOUS: There is prominent subcutaneous streaking over the lower left face left lower bal k and para-left submandibular region. There is subjacent thickening of the left platysma muscle and there are enhancing prominent sub platysmal lymph nodes in this region. There is no drainable fluid collection. No radiopaque foreign body. VISUALIZED PARANASAL SINUSES: Unremarkable. NASOPHARYNX: Unremarkable ORODENTAL: Unremarkable. OROPHARYNX: There is a 6 x 4 mm hypodensity in the anterior left pharyngeal tonsil, not associated wi th obvious local inflammation nor enlargement of the tonsil. Possibly represents an incidental cyst. Recommend direct visualization. Similar findings not seen on the opposite-right side. Uvula is mi dline. HYPOPHARYNX: Unremarkable. Valleculae and epiglottis and aryepiglottic folds appear normal. VOCAL CORDS: Unremarkable. No masses evident. Subglottic airway appears unremarkable. THYROID GLAND: Unremarkable. Normal size and no obvious nodules. SALIVARY GLANDS: Parotid glands unremarkable. Right submandibular gland unremarkable. There is some mild streaking around the left submandibular gland lateral aspect which appears to be related to the left-sided facial swelling. There is no mass nor calculus within the submandibular gland. LYMPH NODES: Moderately enlarged left sub platysmal lymph nodes. OTHER: VISUALIZED LUNG APICES: No significant findings. IMPRESSION: 1. There is prominent left-sided lower facial and submandibular inflammatory change with subjacent t hickening of the left platysma muscle and subjacent reactive lymph nodes. There is no abscess nor so ft tissue gas. There is no radiopaque foreign body. 2. There is a 6 x 4 mm hypodensity in the left pharyngeal tonsil.. Clinical correlation recommended . RADIATION DOSE DELIVERED: 584.73mGy.cm Total DLP DATA REPOSITORY: All CT scans at this facility are submitted to the National Radiology Data Registry (NRDR) Dose Index Registry (DIR) with the [employer] (A[employer]). RADIATION OPTIMIZATION: All CT scans at this facility use at least one of these dose optimization te chniques: automated exposure control; mA and/or kV adjustment per patient size (includes targeted exa ms where dose is matched to clinical indication); or iterative reconstruction.
--- NOTE | 2024-07-03 00:15 | DI.CT_ITS ---
Exam(s) CT FACIAL W EXAM: CT FACIAL W CLINICAL HISTORY: left facial swelling cracked mandibular molar. TECHNIQUE: Imaging Protocol: Axial computed tomography images with coronal and sagittal reformatted images were created and reviewed. No IV contrast COMPARISON: No exams were available for comparison FINDINGS: MAXILLOFACIAL CT SCAN: There is prominent subcutaneous induration over the lower left side of the face just below the cheek area and extending to the left submandibular region. There is no radiopaque foreign body nor gas in the soft tissues but there is ipsilateral thickening of the left system a muscle and sub platysmal re active lymphadenopathy. The induration extends deep to the left platysma around the left submandibul ar gland and into the submandibular fat. Anteriorly there is slight involvement across the midline i n front of the mentum of the anterior aspect of the mandible. No facial fractures evident. No evidence of orbital blowout fracture. No nasal bone fracture. Ther e is some mucus in the small right frontal sinus. Remainder of the paranasal sinuses are clear as ar e the visualized mastoid air cells. No significant findings in the orbits. IMPRESSION: Prominent inflammatory process left side of the face as described above with extension into the left sub platysmal fat. The left sub platysmal lymph nodes are noted. There is risk for developing Ludwi gs angina. RADIATION DOSE DELIVERED: 584.73mGy.cm Total DLP DATA REPOSITORY: All CT scans at this facility are submitted to the National Radiology Data Registry (NRDR) Dose Index Registry (DIR) with the [employer] (ACR). RADIATION OPTIMIZATION: All CT scans at this facility use at least one of these dose optimization te chniques: automated exposure control; mA and/or kV adjustment per patient size (includes targeted exa ms where dose is matched to clinical indication); or iterative reconstruction.
--- NOTE | 2024-07-03 00:23 | ED.GENADUL_ITS ---
Discharge Plan Disposition Patient Disposition: Home Condition: Good Discharge Details Clinical Impression: Facial swelling, Dental infection Primary Care Provider: Carol Montiel ED Provider: Ana Townsend Home Meds and New Rx's Prescriptions: New amoxicillin-pot clavulanate 875-125 mg tablet 1 tab PO BID Qty: 26 0RF Continued escitalopram oxalate [Lexapro] 20 mg tablet 20 mg PO DAILY anastrozole [Arimidex] 1 mg tablet 1 mg PO DAILY multivitamin [Daily Multi-Vitamin] Tablet 1 tab PO DAILY Discontinued amoxicillin 500 mg capsule 500 mg PO Q6H Rx Instructions: first dose 1000mg, then 500mg q6h Discharge Instructions Instructions: Dental Pain ED Additional Instructions: Stop taking the amoxicillin. Start taking the amoxicillin-pot clauvulanate, twice a day, for the next 13 days. Tylenol and ibuprofen over the counter for pain; follow the directions on the bottle. Call your dentist in the morning to schedule an appointment for within the next 48 hours to follow-up on your visit here. Your CT scan showed what may be a cyst on your tonsil; call your PCP in the morning to schedule an appointment to followup on this. Return to the emergency department for new or worsening symptoms including worsening swelling, difficulty breathing, difficulty swallowing, inability to open your mouth, or if you have any other concerns. Stand Alone Forms: Work Release HPI General Mode of arrival: ambulatory . Date/Time Provider Initiated Documentation: 07/02/24 23:53 . Limitations to Documentation: no limitations . Information obtained by: patient . HPI Narrative: 53yo previously healthy female presenting with left facial swelling. Left lower molar cracked, plan for extraction. This morning noted left facial swelling and saw her dentist; started on amoxicillin, first dose around 1800 today. Swelling has worsened since then. More painful. No difficulty opening mouth, no difficulty with secretions, no neck pain. No pain with swallowing. No fevers, chills, rash, nausea, vomiting, or other concerns. Related Data Home Medications ?Medication ?Instructions ?Recorded ?Confirmed anastrozole 1 mg tablet (Arimidex) 1 mg PO DAILY 04/12/23 07/02/24 escitalopram oxalate 20 mg tablet 20 mg PO DAILY 04/12/23 07/02/24 (Lexapro) multivitamin (Daily Multi-Vitamin 1 tab PO DAILY 04/12/23 07/03/24 tablet) amoxicillin 875 mg-potassium 1 tab PO BID #26 tabs 07/03/24 clavulanate 125 mg tablet Previous Rx's ?Medication ?Instructions ?Recorded amoxicillin 875 mg-potassium 1 tab PO BID #26 tabs 07/03/24 clavulanate 125 mg tablet Allergies Allergy/AdvReac Type Severity Reaction Status Date / Time Fish Containing Products Allergy Severe abd pain Verified 07/03/24 00:00 nitrofurantoin (From Allergy Intermediate Hives Verified 07/03/24 00:00 Macrobid) nitrofurantoin Allergy Intermediate Hives Verified 07/03/24 00:00 macrocrystalline (From Macrobid) General Stated Complaint: DentalOral TRU: 3 Review of Systems Narrative: see HPI Exam Narrative Exam Narrative: General: Alert, well appearing, well nourished, in no acute distress. Head: Normocephalic, atraumatic Neck: Trachea midline, ?Neck supple. Tender left anterior cervical lymphadenopathy. ENT: ?MMM.? No oropharygeal lesions or exudate. Poor dentition. No clear intraoral abscess. Left sided face/cheek swelling. No trismus. Cardiac: ?RRR, no murmurs appreciated Resp: No respiratory distress. CTAB. Abd: ?Soft, non-distended, nontender Extremities: ?No deformities.? No peripheral edema. Neurologic: GCS 15. ? Moves all extremities freely against gravity Course Vital Signs Vital signs: Vital Signs Temperature 36.3 C L 07/02/24 23:54 Pulse 76 07/02/24 23:54 Respiratory Rate 16 07/02/24 23:54 Blood Pressure 169/109 H 07/02/24 23:54 Pulse Oximetry 97 07/02/24 23:54 Temperature 36.3 C L 07/03/24 00:00 Temperature Source Oral 07/03/24 00:00 Pulse 76 07/03/24 00:00 Respiratory Rate 16 07/03/24 00:00 Respiratory Effort Normal, Non-Labored 07/03/24 00:00 Blood Pressure 169/109 H 07/03/24 00:00 Blood Pressure Position Sitting 07/03/24 00:00 Pulse Oximetry 97 07/03/24 00:00 Oxygen Delivery Method Room Air 07/03/24 00:00 Oxygen Flow Rate 0 07/02/24 23:54 Pain Level 9 07/03/24 00:02 Medical Decision Making 53yo previously healthy female presenting with left facial swelling. Left lower molar cracked, plan for extraction. Presents with facial swelling that started this morning and has been worsening, saw dentist today and started amoxcillin first dose at 1800. No difficulty with secretions or difficulty opening mouth. Hypertensive on arrival, vital signs otherwise reassuring. Not septic. Left facial swelling on exam, no clear intraoral abscess. Exam not concerning for ludwigs; will evaluate for buccal space infection, deep space neck infection, etc. with CT imaging. Given toradol for pain. Labs reviewed as below, CBC with mild leukocytosis at 11.8 (nonspecific), CMP with no actionable abnormalities. CTs face and neck independently reviewed, no clear abscess on my view. Radiology reads below, no odontogenic abscess. ? of tonsillar abscess, clinically patient without sore throat or difficulting swallowing, suspect more likely cyst; will advise PCP followup. On reassessment pt well appearing, reassuring vital signs, reports pain has improved. Will broaden abx coverage to amox-clauv, give single dose of IV ampicillin here. Discharged home to followup with dentist; discharge instructions and return precautions were reviewed with patient who verbalized understanding. All questions were answered and she is in full agreement with the plan. Imaging Data Radiologic Study: Imaging: CT Scan Radiologist's impression: CT neck: IMPRESSION: 1. There is extensive lower left facial/left submandibular soft tissue inflammation. No soft tissue gas or abscess. 2. There is a 6 mm oval well-demarcated hypodense structure in the anterior left pharyngeal tonsillar tissue, without local inflammation or enlargement of the tonsillar soft tissue. While this appearance can be compatible with an abscess, in this case, without reported symptoms referable to possible peritonsillar abscess, it may signify an incidental cyst. Recommend clinical correlation. CT face: IMPRESSION: 1. Partial opacification of the right frontal sinus sug gests sinusitis. 2. Extensive soft tissue inflammation of the left lower face and left submandibular region. No soft tissue gas or abscess. 3. There is prominence of the fatty marrow of the mandible around the root of the #18 tooth, without lucency to indicate erosion or abscess. This may significant loosening of the tooth in the socket, but clinical significance is uncertain. No evidence of periapical dental abscess. Lab Data Lab results reviewed: Yes I reviewed the patient's lab results. Labs: Laboratory Tests Range/Units 07/03/ 00:47 WBC (4.4-10.8) 10^3/uL 11.87 H RBC (3.93-5.22) 10^6/uL 4.71 Hgb (11.2-15.7) g/dL 14.7 Hct (36.0-46.0) % 44.9 MCV (80-95) fL 95 MCH (27.0-33.0) pg 31.2 MCHC (32.0-36.0) % 32.7 RDW (11.7-14.6) % 12.9 Plt Count (130-400) 10^3/uL 274 MPV (8.0-11.0) fL 9.0 Immature Gran % % 0.3 Neutrophils % % 65.0 Lymphocytes % % 24.1 Monocytes % % 8.2 Eosinophils % % 2.1 Basophils % % 0.3 Nucleated RBC % (0.0-0.3) % 0.0 Absolute Neutrophils (1.2-6.7) 10^3/uL 7.72 H Absolute Lymphocytes (1.2-3.4) 10^3/uL 2.86 Absolute Monocytes (0.1-0.8) 10^3/uL 0.97 H Absolute Eosinophils (0.0-0.7) 10^3/uL 0.25 Absolute Basophils (0.0-0.2) 10^3/uL 0.04 Sodium (136-145) mmol/L 144 Potassium (3.5-5.1) mmol/L 4.1 Chloride (98-107) mmol/L 108 H Carbon Dioxide (21.0-32.0) mmol/L 30.2 Anion Gap (3-11) mmol/L 5.8 BUN (7-18) mg/dL 19 H Creatinine (0.55-1.02) mg/dL 0.8 Est GFR (CKD-EPI 2020) (mL/min/1.73m2) 88.60 Glucose (74-106) mg/dL 108 H Calcium (8.5-10.1) mg/dL 9.0 Total Bilirubin (0.2-1.0) mg/dL 0.42 AST (15-37) U/L 15 ALT (14-59) U/L 22 Alkaline Phosphatase (46-116) U/L 91 Total Protein (6.4-8.2) g/dL 7.0 Albumin (3.4-5.0) g/dL 3.4 Quality:SDOH Health Related Social Needs: No Data to Display PFSH All Active Problems (Updated 07/03/24 @ 03:59 by Ana Townsend MD) Dental infection (Acute) Facial swelling (Acute) Chest wall mass (Acute) Breast cancer (Chronic ~05/2022) Medical History (Updated 07/03/24 @ 03:59 by Ana Townsend MD) Port-A-Cath in place left Hot flashes Fatigue Anxiety and depression Surgical History (Updated 02/26/24 @ 14:45 by Deandra Jacobs MD) History of colonoscopy (~05/2023) H/O mastectomy (~05/2022) single H/O Spinal surgery Status post de Quervain's release surgery H/O exploratory laparotomy H/O LEEP In her 20s Social History (Updated 04/12/23 @ 13:35 by MARKO Swann) Smoking/Tobacco Use Status: Current every day Tobacco Type: cigarettes Smoking risk assessment performed?: Yes Alcohol Intake: former Drug use: Daily Substance use type: marijuana Details: Edibles to help her sleep Housing: apartment Do you feel safe at home: Yes Do you feel safe in your relationship?: Yes Additional Social history: lives alone
[2024-07-03] MEDS: Ketorolac 15 MG/ML VIAL IVP (00:47)
[2024-07-03 01:01] LABS: Abs Immature Grans 0.04 10^3/uL (0.0-0.06); Absolute Eosinophil Count 0.25 10^3/uL (0.0-0.7); Absolute Lymphocyte Count 2.86 10^3/uL (1.2-3.4); Absolute Monocyte Count 0.97 10^3/uL (0.1-0.8); Absolute Neutrophil Count 7.72 10^3/uL (1.2-6.7); Basophils % 0.3 %; Eosinophils % 2.1 %; HCT 44.9 % (36.0-46.0); HGB 14.7 g/dL (11.2-15.7); Immature Grans % 0.3 %; Lymphocytes % 24.1 %; MCH 31.2 pg (27.0-33.0); MCHC 32.7 % (32.0-36.0); MCV 95 fL (80-95); Monocytes % 8.2 %; Platelet Count 274 10^3/uL (130-400); RBC 4.71 10^6/uL (3.93-5.22); RDW 12.9 % (11.7-14.6); RDW-SD 45.7 fL; WBC 11.87 10^3/uL (4.4-10.8)
[2024-07-03 01:03] LABS: Absolute Basophil Count 0.04 10^3/uL (0.0-0.2)
[2024-07-03 01:13] LABS: ALT 22 U/L (14-59); AST 15 U/L (15-37); Albumin 3.4 g/dL (3.4-5.0); Alkaline Phosphatase 91 U/L (46-116); Anion Gap 5.8 mmol/L (3-11); BUN 19 mg/dL (7-18); Bilirubin, Total 0.42 mg/dL (0.2-1.0); CO2 30.2 mmol/L (21.0-32.0); CREATININE 0.8 mg/dL (0.55-1.02); Chloride 108 mmol/L (98-107); Glucose 108 mg/dL (74-106); Potassium 4.1 mmol/L (3.5-5.1); Sodium 144 mmol/L (136-145)
[2024-07-03] MEDS: Normal Saline - Diluent 50 ML VIAL IJ (01:23)
[2024-07-03] MEDS: Omnipaque 350 MG/ML 100 ML BTL IJ (01:26)
--- NOTE | 2024-07-03 02:39 | DI.VRAD_ITS ---
PROCEDURE INFORMATION: Exam: CT Neck With Contrast Exam date and time: 07/03/2024 1:09 AM Age: 53 years old Clinical indication: Other: Left facial swelling cracked mandibular molar TECHNIQUE: Imaging protocol: Computed tomography of the neck with contrast. Contrast material: OMNI 350; Contrast volume: 100 ml; Contrast route: INTRAVENOUS (IV); COMPARISON: CT FACIAL W 07/03/2024 1:09 AM FINDINGS: Salivary glands: Normal. Glands are normal in size. Pharynx: There is a 6 mm oval well-demarcated hypodense structure in the anterior left pharyngeal tonsillar tissue, without local inflammation or enlargement of the tonsillar soft tissue. While this appearance can be compatible with an abscess, in this case, without reported symptoms referable to possible peritonsillar abscess, it may signify an incidental cyst. Recommend clinical correlation. Prevertebral and retropharyngeal spaces: Unremarkable. Larynx: Unremarkable. Epiglottis is normal. Thyroid: Normal. No enlarged or calcified nodules. Trachea: Visualized trachea is unremarkable. Lungs: Unremarkable as visualized. Lymph nodes: Unremarkable. No lymphadenopathy. Bones/joints: Unremarkable. No acute fracture. Soft tissues: There is extensive lower left facial/left submandibular soft tissue inflammation. No soft tissue gas or abscess. IMPRESSION: 1. There is extensive lower left facial/left submandibular soft tissue inflammation. No soft tissue gas or abscess. 2. There is a 6 mm oval well-demarcated hypodense structure in the anterior left pharyngeal tonsillar tissue, without local inflammation or enlargement of the tonsillar soft tissue. While this appearance can be compatible with an abscess, in this case, without reported symptoms referable to possible peritonsillar abscess, it may signify an incidental cyst. Recommend clinical correlation. Dictated and Authenticated by: Herb Montano MD. Ordering:NORMA Perez MD
--- NOTE | 2024-07-03 03:08 | DI.VRAD_ITS ---
PROCEDURE INFORMATION: Exam: CT Maxillofacial With Contrast Exam date and time: 07/03/2024 1:09 AM Age: 53 years old Clinical indication: Other: Left facial swelling cracked mandibular molar TECHNIQUE: Imaging protocol: Computed tomography of the face with contrast. Contrast material: OMNI 350; Contrast volume: 100 ml; Contrast route: INTRAVENOUS (IV); COMPARISON: CT NECK W 07/03/2024 1:09 AM FINDINGS: Paranasal sinuses: Partial opacification of the right frontal sinus suggests sinusitis. Orbital cavities: Orbits are normal. Globes are unremarkable. Bones: There is prominence of the fatty marrow of the mandible around the root of the #18 tooth, without lucency to indicate erosion or abscess. This may significant loosening of the tooth in the socket, but clinical significance is uncertain. No evidence of periapical dental abscess. Soft tissues: Extensive soft tissue inflammation of the left lower face and left submandibular region. No soft tissue gas or abscess. IMPRESSION: 1. Partial opacification of the right frontal sinus suggests sinusitis. 2. Extensive soft tissue inflammation of the left lower face and left submandibular region. No soft tissue gas or abscess. 3. There is prominence of the fatty marrow of the mandible around the root of the #18 tooth, without lucency to indicate erosion or abscess. This may significant loosening of the tooth in the socket, but clinical significance is uncertain. No evidence of periapical dental abscess. Dictated and Authenticated by: Herb Montano MD. Ordering:NORMA Perez MD
[2024-07-03 03:18] VITALS: BP 138/67; PULSE 72; RESP 14; TEMP 36.7; O2SAT 94
[2024-07-03] MEDS: AMPICILLIN/SULBACTAM 3 GM in Normal Saline 100 ML IVPB (04:17)
[2024-07-03 05:26] VITALS: BP 145/89; PULSE 75; RESP 16; O2SAT 97
== END 2024-07-03 05:27 | disposition home or self-care (01) ==
PROVIDERS: Emergency Provider Student in an Organized Health Care Education/Training Program; PCP Nurse Practitioner Family
DX: R68.84 Jaw pain (principal); K04.7 Periapical abscess without sinus; R22.0 Localized swelling, mass and lump, head
CPT/HCPCS: 70491; 80053; 96374; 99284; 70487; 85025; 99283; J0295; J1885; J3490

== ENCOUNTER 2024-11-26 15:57 | Outpatient (CLI) | payer MEDICAID, SELFPAY ==
[2024-11-27 18:55] LABS: Prolactin 11.8 ng/mL (See Note)
== END 2024-11-26 15:58 | disposition home or self-care (01) ==
LOC: LBO 16:05
PROVIDERS: PCP Nurse Practitioner Family; Visit Provider Internal Medicine Hematology & Oncology
DX: N64.52 Nipple discharge (principal)
CPT/HCPCS: 36415; 84146

== ENCOUNTER 2024-12-08 01:19 | Outpatient (CLI) | payer MEDICAID, SELFPAY ==
--- NOTE | 2024-12-08 | DI.MAMMO_ITS ---
Exam(s) MG MAMMO DIAGNOSTIC UNI US BREAST RT LIMITED EXAM: MG MAMMO DIAGNOSTIC UNI and U/S breast RT limited CLINICAL HISTORY: NIPPLE DISCHARGE, N64.52, HX BREAST CA, Z85.3. TECHNIQUE: Craniocaudal and mediolateral oblique Full Field Digital Mammography views of the right b reast with Computer Aided Diagnosis followed by Tomosynthesis and limited right breast ultrasound. COMPARISON: Comparison is made with prior examinations. FINDINGS: Mammography/Tomosynthesis: Masses/Architectural Distortion: No suspicious masses or areas of architectural distortion are presen t. Microcalcifictions: No suspicious pleomorphic-type are seen. Skin Thickening/Nipple Retraction: None. Limited right breast US: Echotexture: Normal appearance of the glandular tissue. Shadowing: No suspicious foci. Cyst: None. Solid lesions: None seen. Ductal dilation: There is no ductal dilatation. No intraductal masses are seen in the retroareolar r egion. IMPRESSION: 1. No evidence of malignancy is noted. 2. Unless there is more urgent need, follow-up screening mammography is recommended, as per [place] [employer] guidelines. 3. If there is continued clinical concern, further evaluation with ductography or MRI may be consider ed. 4. The findings were discussed with the patient on the date of the examination. BI-RADS Category 1 - Negative Breast Density - Category B - Scattered areas of fibroglandular density Breast density Category C or D implies that the patient has dense breast tissue. Dense breast tissue can make it harder to find cancer on a mammogram. Dense breast tissue is also associated with an incr eased risk of breast cancer. This information about the result of the mammogram report was provided to the patient to raise their awareness. Use this report when you speak with the patient about their risks for breast cancer, which includes their family history. At that time, you may recommend additional screening tests (Ultrasoun d or MRI) as these tests may add significant information. A negative radiographic report should not delay biopsy if a dominant or clinically suspicious mass is present. Up to ten percent of cancers are not identified on mammography. A negative report may reinforce clinical impression. Adenosis and dense breasts may obscure an underlying neoplasm. False positive reports average 6 to 10%. Patient will receive a letter notifying them of these results.
== END 2024-12-08 01:39 ==
LOC: DI 01:19
PROVIDERS: PCP Nurse Practitioner Family; Visit Provider Nurse Practitioner Family
DX: Z12.31 Encounter for screening mammogram for malignant neoplasm of breast (principal); N64.52 Nipple discharge; Z85.3 Personal history of malignant neoplasm of breast
CPT/HCPCS: 76642; 77061; 77065; G0279

== ENCOUNTER 2024-12-12 00:40 | Outpatient (CLI) | payer MEDICAID, SELFPAY ==
--- NOTE | 2024-12-12 | DI.DEXA_ITS ---
Exam(s) XR DEXA BONE DENSITY W/WO GRACIELA EXAM: XR DEXA BONE DENSITY W/WO GRACIELA CLINICAL HISTORY: Long-term current use of aromatase inhibitor, Z79.811; h/o breast ca, Z85.3 TECHNIQUE: COMPARISON: CR XR DEXA BONE DENSITY W/WO GRACIELA from 12/01/2022 FINDINGS: Lateral Spine Image: Unremarkable. No compression deformities identified. Left hip: Total T-Score: -0.1. This compares to 0.0 on the prior examination. Total Z-Score: 0.5 T- and Z-scores: Within normal limits. Lumbar Spine: Total T-Score: 0.5. This compares to 0.5 on the prior examination. Total Z-Score: 1.5 T- and Z-scores: Within normal limits. IMPRESSION: No evidence of osteoporosis.
== END 2024-12-12 01:00 ==
LOC: DI 00:41
PROVIDERS: PCP Nurse Practitioner Family; Visit Provider Nurse Practitioner Family
DX: Z79.811 Long term (current) use of aromatase inhibitors (principal); Z85.3 Personal history of malignant neoplasm of breast; Z13.820 Encounter for screening for osteoporosis
CPT/HCPCS: 77080

== ENCOUNTER 2025-07-02 13:27 | Outpatient (REF) | payer MEDICAID, SELFPAY ==
[2025-07-02 15:00] LABS: HCT 44.7 % (36.0-46.0); HGB 15.2 g/dL (11.2-15.7); MCH 31.3 pg (27.0-33.0); MCHC 34.0 % (32.0-36.0); MCV 92 fL (80-95); MPV 9.5 fL (8.0-11.0); Platelet Count 274 10^3/uL (130-400); RBC 4.86 10^6/uL (3.93-5.22); RDW 12.8 % (11.7-14.6); RDW-SD 43.3 fL; WBC 7.97 10^3/uL (4.4-10.8)
[2025-07-02 15:09] LABS: ALT 25 U/L (14-59); AST 16 U/L (15-37); Albumin 3.8 g/dL (3.4-5.0); Alkaline Phosphatase 87 U/L (46-116); Anion Gap 9.9 mmol/L (3-11); BUN 17 mg/dL (7-18); Bilirubin, Total 0.8 mg/dL (0.2-1.0); CO2 26.1 mmol/L (21.0-32.0); Calcium 9.0 mg/dL (8.5-10.1); Calculated LDL 125 mg/dL (<100); Chloride 105 mmol/L (98-107); Cholesterol 236 mg/dL (<200); Estimated GFR 107.26 (mL/min/1.73m2); Glucose 92 mg/dL (74-106); HDL Cholesterol 93 mg/dL (>or=50); Potassium 4.0 mmol/L (3.5-5.1); Sodium 141 mmol/L (136-145); Total Protein 6.9 g/dL (6.4-8.2); Triglyceride 90 mg/dL (<150)
[2025-07-02 16:22] LABS: Hemoglobin A1C 5.7 % (<5.7)
== END 2025-07-02 13:28 | disposition home or self-care (01) ==
LOC: NCHCN 13:27
PROVIDERS: PCP Nurse Practitioner Family
DX: Z13.1 Encounter for screening for diabetes mellitus (principal); Z00.00 Encounter for general adult medical examination without abnormal findings; Z13.6 Encounter for screening for cardiovascular disorders
CPT/HCPCS: 80053; 80061; 85027; 83036